=== PATIENT | female | born 1960 | race Caucasian/White ===

== ENCOUNTER 2022-06-21 12:27 | Day surgery (SDC) | payer OTHER ==
[2022-06-21] MEDS ORDERED: NA CHLORIDE 0.9% 1,000 ML ONE (12:58)
[2022-06-21] MEDS ORDERED: LIDOCAINE 1% MPF 5 ML VIAL ONE (14:05)
[2022-06-21] MEDS ORDERED: propofoL 200 MG/20 ML VIAL IV ONE (14:05)
[2022-06-21 15:21] VITALS: TEMP 97.2
[2022-06-21 15:23] VITALS: BP 121/64; O2SAT 100
== END 2022-06-21 15:15 | disposition home or self-care (01) ==
LOC: OR 12:27
PROVIDERS: ATTEND Surgery
PROC: 0DBN8ZX Excision of Sigmoid Colon, Via Natural or Artificial Opening Endoscopic, Diagnostic (ICD-10-PCS; 2022-06-21)
PROC: 0DBP8ZX Excision of Rectum, Via Natural or Artificial Opening Endoscopic, Diagnostic (ICD-10-PCS; principal; 2022-06-21 14:30)
DX: Z12.11 Encounter for screening for malignant neoplasm of colon (principal); K57.30 Diverticulosis of large intestine without perforation or abscess without bleeding; K64.4 Residual hemorrhoidal skin tags; K63.5 Polyp of colon
CPT/HCPCS: 45380; 82947; 88305; J2704; J2001; J7030

== ENCOUNTER 2022-08-02 08:28 | Day surgery (SDC) | payer OTHER ==
[2022-07-31 10:42] LABS: Absolute Lymphocytes (CBC) 1.8 K/uL (0.7-4.9); Hematocrit 43.1 % (36.0-45.0); Lymphocytes % 27.4 % (15.3-44.8); MCV 88.3 fL (80-100); RBC Red Blood Cell Count 4.88 M/uL (3.86-4.86)
--- NOTE | 2022-07-31 17:21 | EKG ---
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
[2022-08-02] MEDS ORDERED: CEFAZOLIN SODIUM 2 GM/VIAL ONE (08:57)
[2022-08-02] MEDS ORDERED: NA CHLORIDE 0.9% 1,000 ML ONE (08:57)
[2022-08-02] MEDS ORDERED: BUPIVACAINE 0.25% PF 10 ML VIAL ONE (09:27)
[2022-08-02] MEDS ORDERED: FENTANYL CITR 100 MCG/2 ML ONE ×2 (09:34→10:32)
[2022-08-02] MEDS ORDERED: propofoL 200 MG/20 ML VIAL IV ONE (09:34)
[2022-08-02] MEDS ORDERED: MIDAZOLAM HCL 2 MG/2 ML INJ ONE (09:34)
[2022-08-02] MEDS ORDERED: LIDOCAINE 2% MPF 5 ML VIAL ONE (09:34)
[2022-08-02] MEDS ORDERED: ONDANSETRON 4 MG/2 ML VIAL ONE (09:38)
[2022-08-02] MEDS ORDERED: GLYCOPYRROLATE 0.2 MG/ML SYR ONE (09:41)
[2022-08-02] MEDS ORDERED: ROCURONIUM 50 MG/5 ML VIAL IV ONE (09:42)
[2022-08-02] MEDS ORDERED: NEOSTIGMINE 1 MG/ML -10 ML VIAL ONE (09:43)
[2022-08-02] MEDS ORDERED: EPHEDRINE SULF 50 MG/ML VIAL ONE (10:58)
[2022-08-02] MEDS ORDERED: LABETALOL 20 MG/4ML SYRINGE IV ONE (11:06)
--- NOTE | 2022-08-02 11:06 | P.OP ---
Preoperative diagnosis: Recurrent Ventral Incisional Hernia Postoperative diagnosis: Recurrent Ventral Incisional Hernia Primary procedure: Laparoscopic repair of Recurrent Ventral Incisional Hernia Anesthesia: GETA + Local Estimated blood loss: <5cc Specimen: none Findings: ~ 4cm ventral abdominal hernias Complications: None Implants: 15.2cm Bard Ventralite mesh, Sorbafix tacks x 60 Transferred to: Recovery Room Condition: Good
[2022-08-02] MEDS: HYDROMORPHONE HCL 1 MG/ML INJ ONE ×2 (11:28→11:33)
[2022-08-02] MEDS: HYDROMORPHONE HCL 2 MG/ML inj ONE ×4 (11:38→11:53)
[2022-08-02] MEDS: DIPHENHYDRAMINE 50 MG/ML VIAL ONE ×2 (12:09→12:19)
[2022-08-02] MEDS ORDERED: KETOROLAC 30 MG/ML INJ ONE (12:09)
[2022-08-02 12:14] VITALS: TEMP 97.3; O2SAT 97
[2022-08-02 14:42] VITALS: BP 107/74
--- NOTE | 2022-08-02 19:47 | OP ---
Date of Procedure: 08/02/2022 Surgeon: Live Fox MD, Preoperative Diagnosis: Recurrent ventral incisional hernia. Postoperative Diagnosis: Recurrent ventral incisional hernia. Procedure Performed: Laparoscopic repair of recurrent ventral incisional hernia. Anesthesia: General endotracheal plus local with 0.25% Marcaine. Estimated Blood Loss: Less than 5 cc. Specimen: None. Findings: 4 cm ventral abdominal hernia. Complications: None. Implants: 11.2 cm Bard Ventralight mesh with Echo Positioning System and SorbaFix absorbable fixatio n tacks x60. Disposition: The patient was transferred to recovery room in good condition. Procedure In Detail: After informed consent was obtained, the patient was brought to the operating r oom and prepped and draped in the usual sterile fashion. After adequate anesthesia was achieved, an area in the left lower quadrant was anesthetized with 0.25% Marcaine, sharply incised, and 5 mm troca r was placed under direct visualization without evidence of any complication. Additional trocar was placed in the left mid abdomen. This was similarly anesthetized, sharply incised, and a 12 mm trocar was placed under direct visualization without evidence of any complication. I then used a LigaSure device to take down the omental attachments from the anterior aspect of this recurrent ventral incisi onal hernia. Previous sutures were noted. Previous repair was noted, which was a primary repair tata arently. This area was dissected from all preperitoneal fat using the LigaSure device and the falcif orm ligament was dissected cranially using the LigaSure device as well with good hemostasis. No sandip tional hemostat was required after the dissection was completed to allow for appropriate landing zone . I then brought the Endo Stitch with V-Loc and 0 V-Loc was used to run and close the hernia defect in the midline in a running fashion with the V-Loc suture. Two sutures were utilized with good appro ximation of tissues. At this point, the hernia defect was measured and found to be approximately 4 c m. I brought in a 15 cm Bard Ventralight mesh with Echo Positioning System through the 12 mm trocar, positioned it centrally, and after making a small stab incision, deployed the balloon deployment sys tem and then placed a single crown of the anterior abdominal wall using SorbaFix absorbable fixation tacks. At this point, the balloon deployment system was removed, found to be intact on the back tabl e, and then a second crown was placed of SorbaFix absorbable fixation tacks. Total of 60 tacks were used to adhere the mesh to the anterior bowel with good approximation of tissues. At this point, the patient was rolled slightly away. The 12 mm trocar site was inspected. The trocar was removed. Th e site was then closed using a Chris-Sarah suture passer with 0 Vicryl in interrupted fashion wit h good approximation of tissues at this point, and the abdomen was then desufflated under direct visu alization without evidence of any complication. Remaining trocars were removed. All skin incisions were copiously irrigated and closed with a 4-0 Monocryl in running fashion and Dermabond placed over top. The patient tolerated the procedure without evidence of any complication and transferred to PAC U in good condition. All counts were correct at the end of the case. GIOVANY/MONIQUE Voice ID: [id number] Report ID: [id number]
== END 2022-08-02 13:55 | disposition home or self-care (01) ==
LOC: OR 08:28
PROVIDERS: ATTEND Surgery
PROC: 0WUF4JZ Supplement Abdominal Wall with Synthetic Substitute, Percutaneous Endoscopic Approach (ICD-10-PCS; principal; 2022-08-02 10:30)
DX: K43.2 Incisional hernia without obstruction or gangrene (principal); I10 Essential (primary) hypertension; E78.2 Mixed hyperlipidemia; R73.03 Prediabetes; E03.9 Hypothyroidism, unspecified; E55.9 Vitamin D deficiency, unspecified; E61.8 Deficiency of other specified nutrient elements; Z79.899 Other long term (current) drug therapy; Z90.49 Acquired absence of other specified parts of digestive tract; Z90.710 Acquired absence of both cervix and uterus
CPT/HCPCS: 93005; 85025; 80048; 36415; 82947 ×2; 49615; J2704; J2710; J1200; J2001; J2250; J1170 ×2; J3010 ×2; J2405; J7030

== ENCOUNTER 2023-03-09 09:53 | Observation (INO) | payer OTHER ==
--- OUTSIDE RECORDS SUMMARY | 2023-03-09 09:58 | XMS REPORT | Continuity of Care Document ---
:1960 Author Organization [facility] t Address [address] [place] [address] Care Team Providers Name Role Phone Services, Pending Sale To [facility] Primary Care Physician [phone] ANT KINNEY Attending Clinician Unavailable QUYNH FIELDS Attending Clinician Unavailable EVON MCLEOD Attending Clinician Unavailable RUTHIE BISHOP Attending Clinician Unavailable LAB90 Attending Clinician Unavailable VINCENZO MCKEON Attending Clinician Unavailable ERICKA HOWARD Attending Clinician Unavailable Rashmi_Denisse Attending Clinician Unavailable Nancy Rivera Attending Clinician [phone] Gautam Sen Attending Clinician Unavailable NIXON SMITH Attending Clinician Unavailable Angelina Child Attending Clinician Unavailable Samina Farmer Attending Clinician [phone] Nava Maria Attending Clinician [phone] Rhona Matamoros Attending Clinician Unavailable Sapna Foreman Attending Clinician [phone] Jade Marquez Attending Clinician [phone] Emi Michel Attending Clinician Unavailable SAMINA NUR Attending Clinician Unavailable Responsible Provider, Not Yet Assigned Attending Clinician U Tayo Cruz Attending Clinician Unavailable Sharmila Zhong Attending Clinician Unavailable Poncho Torres Attending Clinician Unavailable Melina Mistry Attending Clinician [phone] Marleni Emery Attending Clinician Unavailable Dorcas Luna Attending Clinician Unavailable Severinderjit_D Admitting Clinician Unavailable Lj Boateng Unavailable [phone] Nancy Rivera Unavailable [phone] Nava Maria Unavailable [phone] Angelina Child Unavailable Unavailable Jimmy Jade Unavailable [phone] Tayo Mosley Unavailable Unavailable Payers Payer Name Policy Type Policy Number Effective Date Expiration Date S eliza AETNA [employer] 9 [id number] 2022 [place]IL[place] $30 4000 00:00:00 [facility]IC [id number] [place] [id number] [place] [place] [employer] [place] [id number] 2021 2022 [facility] CAP 00:00:00 00:00:00 Community [facility] Problems Condition Condition Condition Status Onset Resolution Last Treating Co mments Source Name Details Category Date Date Treatment Clinician Date DM type 2 DM type 2 Disease Active Tay ariasy with with 06-11 Seybold diabetic diabetic 00:00: - mixed mixed 00 Externa hyperlipid hyperlipid l emia emia Type 2 Type 2 Disease Active Ariadne diabetes diabetes 05-28 Seybol d mellitus mellitus 00:00: - without without 00 Externa complicati complicati l on, on, without without long-term long-term current current use of use of insulin insulin Hypothyroi Hypothyroi Disease Active K elsey dism dism 05-28 Seybold 00:00: - 00 Externa l Subclinica Subclinica Disease Active K elsey l l 05-28 Seybold iodine-def iodine-def 00:00: - iciency iciency 00 Externa hypothyroi hypothyroi l dism dism Mixed Mixed Disease Active Ariadne hyperlipid hyperlipid 05-28 Se ybold emia emia 00:00: - 00 Externa l Prediabete Prediabete Disease Active K jaspreetloretta s s 05-28 Seybold 00:00: - 00 Externa l Female Female Disease Active Ariadne bladder bladder 05-28 Seybold prolapse prolapse 00:00: - 00 Externa l Umbilical Umbilical Disease Active Tay sey hernia hernia -17 Seybold without without 00:00: - obstructio obstructio 00 Ex terna n and n and l without without gangrene gangrene Vitamin D Vitamin D Disease Active Tay sey deficiency deficiency -17 Se ybold 00:00: - 00 Externa l Primary Primary Disease Active Ariadne hypertensi hypertensi -17 Se ybold on on 00:00: - 00 Externa l Hypothyroi Hypothyroi Problem Active V illage dism dism 12-04 Family 00:00: Practic 00 e Presbyopia Condition Active 2020-052021-03-28 Kilo, [facility] - OU 05-28 11:16:58 Lj Communi 00:00: ty 00 Health Astigmatis Condition Active 2020-052021-03-28 Kilo, [facility] m, 05-28 11:16:58 Lj Communi bilateral 00:00: ty 00 Health Hyperopia, Condition Active 2020-052021-03-28 Kilo, [facility] bilateral 05-28 11:16:58 Lj Commu ni 00:00: ty 00 Health Eye and Condition Active 2020-052021-03-28 Kilo, [facility] vision 17 11:16:58 Lj Communi exam, 00:00: ty routine, 00 Health abnormal findings Carpal Condition Active 2020-052021-03-22 Nicole, [place] 1-10 16:08:11 Nancy Andreinai syndrome, 00:00: ty right 00 Health Hypercalce Condition Active 2020-11-05 Candace, [facility] margarette 11-01 21:55:23 Nava Communi 00:00: ty 00 Health Vitamin D Condition Active 2020-11-05 Candace, [facility] deficiency 623 21:55:23 Nava Comm uni 00:00: ty 00 Health PANIC Condition Active 2020-11-01 Angelina Child [facility] DISORDER 6-03 10:07:42 Commun i 00:00: ty 00 Health Multiple Condition Active 2020-11-01 Candace, [facility] joint pain 5-18 10:07:42 Nava Comm uni 00:00: ty 00 Health Panic Condition Active 2020-11-01 Luigi Marquez attack 3-03 10:07:43 Jade Communi 00:00: ty 00 Health Exercise Condition Active 2020-11-01 Luigi Marquez Counseling 3-03 10:07:43 Jade Comm uni 00:00: ty 00 Health Dietary Condition Active 2020-11-01 Luigi Marquez Counseling 3-03 10:07:43 Jade Comm uni 00:00: ty 00 Health Annual Condition Active 2019-052020-11-01 Satya Mosley egacy exam 0-15 10:07:43 Motaz Communi 00:00: ty 00 Health Prediabete Condition Active 2019-052020-11-01 Luigi Mosley s 0-01 10:07:43 Motaz Communi 00:00: ty 00 Health Hyperlipid Condition Active 2019-052020-11-01 Luigi Mosley emia 0-01 10:07:43 Motaz Communi 00:00: ty 00 Health Hypertensi Condition Active 2019-052020-11-01 Luigi Mosley on 0-01 10:07:43 Motaz Communi 00:00: ty 00 Health Allergic Condition Active 2019-052020-11-01 Maria Victoria Mosleyacy rhinitis 0-01 10:07:43 Motaz Commun i 00:00: ty 00 Health Ear Condition Active 2019-052020-11-01 Satya Mosley egacy fullness 0-01 10:07:43 Motaz Commun i 00:00: ty 00 Health Allergies, Adverse Reactions, Alerts This patient has no known allergies or adverse reactions. Social History Social Habit Start Date Stop Date Quantity Comments Source Gender identity Ariadne toscano - External Sexual orientation [facility] History of tobacco Current smoker Me thodist use Hospital History SDOH Alcohol Meth odist Std Drinks Hospital History SDOH Alcohol Meth odist Binge Hospital drug use 2021-03-21 2021-03-21 Previously [facility] 08:17:31 08:17:31 [facility] alcohol use 2021-03-21 2021-03-21 Currently [facility] 08:17:31 08:17:31 [facility] if the patient is 2021-03-21 2021-03-21 No [facility] using/has used a 08:17:31 08:17:31 Communit y vaping item, Health Current, Former, Never Used, Not asked is there any chance 2021-03-21 2021-03-21 No Legac y that you could be 08:17:31 08:17:31 Communi ty ? Health sexual orientation 2021-03-21 2021-03-21 Heterosexual [facility] 08:17:31 08:17:31 [facility] assessment of health 2021-03-21 2021-03-21 Adequate L[facility] cy literacy (NCQA [facility] 08:17:31 08:17:31 Marco singh [facility] Standards, Health 3C10) PHQ2 Questionairre 2021-03-21 2021-03-21 [facility] Score 08:17:31 08:17:31 [facility] passive cigarette 2021-03-21 2021-03-21 No [facility] smoke exposure 08:17:31 08:17:31 [facility] number of children 2021-03-21 2021-03-21 [facility] 08:17:31 08:17:31 [facility] social history 2021-03-21 2021-03-21 reviewed today Legacy reviewed E&M 08:17:31 08:17:31 [facility] social history E&M 2021-03-21 2021-03-21 Single. . [facility] 08:17:31 08:17:[address] [facility] Gabrielleu francisco w/ remarried spouse Healt h of 6 yrs. 3 children ages 39, 37, and 34. Watches grand children as her Daughter works (ages 3 and 5)., Has other grandchildren ages 13, 12 (oldest ones are boys).Not homeless. Born in [facility]. State: [place]. Lives in [place] with youngest daughter and two granddaughters. Not employed. Unemployed. Highest education level: some college. 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 Worked at [employer], and [employer] for some years i nthe past. Sex at : Female. Sexual orientation: Heterosexual. Gender identity: Female. Gender of partner(s): Male. Age of first sexual intercourse: 20. Sexually Active: No. Pet dog. In 2009 she was arrested for theft. "Was an accomplice on a theft". No current legal issues. Believes in God. home/family 2020-11-01 2020-11-01 Lives in [place] Legacy situation, 12:19:17 12:19:17 with youngest Community assessment daughter and two Health granddaughters. family support 2020-11-01 2020-11-01 . Leg acy 12:19:17 12:19:17 2015 in [place] w/ Community remarried spouse of Sierra gómez 6 yrs. 3 children ages 39, 37, and 34. Watches grand children as her Daughter works (ages 3 and 5)., Has other grandchildren ages 13, 12 (oldest ones are boys). time of call 2020-10-24 2020-10-24 10/24/2020 3:42 PM [facility] 15:41:56 15:41:56 [facility] albumin, serum 2020-10-02 2020-10-02 4.8 g/dL [facility] 11:33:00 11:33:00 [facility] Alcohol intake 2020-02-29 2020-02-29 [facility] 00:00:00 00:00:00 non-drinker Hospital (finding) History of Social 2020-02-29 2020-02-[address] function 00:00:00 00:00:00 Hospital History SDOH Alcohol 2020-02-29 2020-02-29 1 Meth odist Frequency 00:00:00 00:00:00 Hospital alcohol use, 2020-02-10 2020-02-10 holidays/special [facility] frequency 10:48:52 10:48:52 occasions only [facility] Occupation #1 2020-02-10 2020-02-10 Unemployed [facility] 10:48:52 10:48:52 [facility] patient considered 2020-02-10 2020-02-10 No Legacy to be homeless 10:48:52 10:48:52 [facility] Sex Assigned At [birth year] [facility] 00:00:00 00:00:00 Hospital Smoking Status Start Date Stop Date Source Former Smoker [facility] P karena Never smoked tobacco Ariadne Clements old - External Medications Ordered Filled Start Stop Current Ordering Indication Dosage Frequency Signature Comments Components Source Medication Medication Date Date Medication? Clinician (SIG) Name Name methylPREDN Yes [id number] 1{zainab} Take 1 zainab Ariadne ISolone 4 8-21 by mouth Seybol d MG oral 00:00: See Admin - Tablet 00 Instructio Externa Therapy ns Use as l Pack directed. Dulaglutide Yes [id number] 3mg Inject 3 Ariadne (Trulicity) 7-24 3 mg into Seybo ld 3 MG/0.5ML 00:00: the skin - subcutaneou 00 once a Machine Setter And Repairer a s Solution week l Pen-injecto r Amlodipine Yes [id number] 5mg Take 1 K elsey Besylate 7-24 tablet (5 Seybol d (NORVASC) 5 00:00: mg total) - MG oral 00 by mouth Externa Tablet daily l Ibuprofen 0 Yes [id number] 800mg Q.25D Take 1 Ariadne (MOTRIN) 7-24 tablet Seybold 800 MG oral 00:00: (800 mg - Tablet 00 total) by Externa mouth l every 6 hours as needed for pain Dulaglutide Yes [id number] 3mg Inject 3 Ariadne (Trulicity) 7-24 3 mg into Seybo ld 3 MG/0.5ML 00:00: the skin - subcutaneou 00 once a Machine Setter And Repairer a s Solution week l Pen-injecto r Amlodipine Yes [id number] 5mg Take 1 K elsey Besylate 7-24 tablet (5 Seybol d (NORVASC) 5 00:00: mg total) - MG oral 00 by mouth Externa Tablet daily l Ibuprofen 2022-0 Yes [id number] 800mg Q.25D Take 1 Ariadne (MOTRIN) 7-24 tablet Seybold 800 MG oral 00:00: (800 mg - Tablet 00 total) by Externa mouth l every 6 hours as needed for pain hydroCHLORO 2022-0 2022- No [id number] 12.5mg Take 1 Ariadne thiazide 7-24 07-24 capsule Seybold 12.5 MG 00:00: 00:00 (12.5 mg - oral 00 :00 total) by Externa Capsule mouth l daily Trulicity 3 2022-0 2022- No [id number] 3mg Inject 3 Ariadne MG/0.5ML 12-02 3 mg into Seybold subcutaneou 00:00: 00:00 the skin - s Solution 00 :00 once a Externa Pen-injecto week l r Amlodipine 2022- No [id number] 5mg Take 1 Ariadne Besylate 12-02 tablet (5 Seybo ld (NORVASC) 5 00:00: 00:00 mg total) - MG oral 00 :00 by mouth Externa Tablet daily l Salicylic Yes [id number] Apply 1 Ariadne Acid 6 % 10-07 applicatio Seybo ld apply 00:00: n. - externally 00 topically Exte rna Gel daily l Salicylic Yes [id number] Apply 1 Ariadne Acid 6 % 10-07 applicatio Seybo ld apply 00:00: n. - externally 00 topically Exte rna Gel daily l Imiquimod 5 Yes [id number] Apply 1 Ariadne % apply 10-02 applicatio Seybol d externally 00:00: n. - Cream 00 topically Externa three l times a week Imiquimod 5 Yes [id number] Apply 1 Ariadne % apply 10-02 applicatio Seybol d externally 00:00: n. - Cream 00 topically Externa three l times a week Imiquimod 5 0 Yes [id number] Apply 1 Ariadne % apply 10-02 applicatio Seybol d externally 00:00: n. - Cream 00 topically Externa three l times a week Levocetiriz 2022- No 5mg 1 tablet K elsey ine 10-01 (5 mg Seybold Dihydrochlo 08:41: 00:00 total) - ride 5 MG 10 :00 daily Externa oral Tablet l Losartan 2022- No [id number] 100mg 1 tablet Ariadne Potassium 10-01- (100 mg Seybol d 100 MG oral 08:36: 00:00 total) - Tablet 58 :00 daily Externa l Cyclobenzap Yes cyclobenza Ariadne rine HCl 10 10-01 ismael 10 Seyb old MG oral 08:25: mg tablet - Tablet 06 Take 1/2 - Externa 1 tablet l po bid PRN and q bedtime Levothyroxi Yes [id number] 50ug 1 tablet Ariadne ne Sodium 5-23 (50 mcg Seybold 50 MCG oral 08:25: total) - Tablet 06 daily Externa l Cyclobenzap Yes cyclobenza Ariadne rine HCl 10 5-23 ismael 10 Seyb old MG oral 08:25: mg tablet - Tablet 06 Take 1/2 - Externa 1 tablet l po bid PRN and q bedtime Levothyroxi Yes [id number] 50ug 1 tablet Ariadne ne Sodium 5-23 (50 mcg Seybold 50 MCG oral 08:25: total) - Tablet 06 daily Externa l Cyclobenzap Yes cyclobenza Ariadne rine HCl 10 5-23 ismael 10 Seyb old MG oral 08:25: mg tablet - Tablet 06 Take 1/2 - Externa 1 tablet l po bid PRN and q bedtime Levothyroxi Yes [id number] 50ug 1 tablet Ariadne ne Sodium 5-23 (50 mcg Seybold 50 MCG oral 08:25: total) - Tablet 06 daily Externa l Trulicity Yes [id number] 1.5mg Inject 1.5 Ariadne 1.5 5-23 3 mg into Seybold MG/0.5ML 00:00: the skin - subcutaneou 00 once a Machine Setter And Repairer a s Solution week l Pen-injecto r Losartan Yes [id number] 100mg Take 1 Ke lsey Potassium 5-23 tablet Seybold (COZAAR) 00:00: (100 mg - 100 MG oral 00 total) by Ext lauri Tablet mouth l daily Duloxetine Yes [id number] 30mg Take 1 Ariadne HCl 30 MG 5-23 capsule Seybold [address] Cap DR 00:00: (30 mg - Particles 00 total) by Exter na mouth l daily FLUTICASONE Yes [id number] 50ug Use 1 Ariadne PROPIONATE, 5-23 spray (50 Sey bold NASAL, 50 00:00: mcg total) - MCG/ACT 00 in each Externa nasal nostril l Suspension daily Salicylic Yes [id number] Apply 1 Ariadne Acid 17 % 5-23 applicatio Seyb old apply 00:00: n. - externally 00 topically Exte rna Gel daily l Losartan Yes [id number] 100mg Take 1 Ke lsey Potassium 5-23 tablet Seybold (COZAAR) 00:00: (100 mg - 100 MG oral 00 total) by Ext lauri Tablet mouth l daily FLUTICASONE Yes [id number] 50ug Use 1 Ariadne PROPIONATE, 5-23 spray (50 Sey bold NASAL, 50 00:00: mcg total) - MCG/ACT 00 in each Externa nasal nostril l Suspension daily Losartan Yes [id number] 100mg Take 1 Ke lsey Potassium 5-23 tablet Seybold (COZAAR) 00:00: (100 mg - 100 MG oral 00 total) by Ext lauri Tablet mouth l daily FLUTICASONE Yes [id number] 50ug Use 1 Ariadne PROPIONATE, 5-23 spray (50 Sey bold NASAL, 50 00:00: mcg total) - MCG/ACT 00 in each Externa nasal nostril l Suspension daily Trulicity 2022- No [id number] 1.5mg Inject 1.5 Ariadne 1.5 5-23 07-24 3 mg into Seybold MG/0.5ML 00:00: 00:00 the skin - subcutaneou 00 :00 once a Machine Setter And Repairer a s Solution week l Pen-injecto r Duloxetine 2022- No [id number] 30mg Take 1 Ariadne HCl 30 MG 5-23 07-24 capsule Seybol d oral Cap DR 00:00: 00:00 (30 mg - Particles 00 :00 total) by Exter na mouth l daily Vitamin D, Yes [id number] TAKE ONE Ariadne Ergocalcife 5-18 CAPSULE BY Se everton hurtado, 1.25 00:00: MOUTH ONCE - MG ( WEEKLY Externa UT) oral l Capsule Vitamin D, 2022- No [id number] TAKE ONE Ariadne Ergocalcife 5-18 07-24 CAPSULE BY Kasandra hurtado, 1.25 00:00: 00:00 MOUTH ONCE - MG ( 00 :00 WEEKLY Externa UT) oral l Capsule Duloxetine 2022- No [id number] TAKE ONE Ariadne HCl 30 MG 09-07-23 CAPSULE BY Sathish guerra oral Cap DR 00:00: 00:00 MOUTH - Particles 00 :00 DAILY . NO Exte rna DRIVING , l NO ALCOHOL AND NO OPERATING MACHINERY Cyclobenzap Yes cyclobenza Ariadne rine HCl 10 -25 ismael 10 Seyb old MG oral 08:10: mg tablet - Tablet 00 Take 1/2 - Externa 1 tablet l po bid PRN and q bedtime Levocetiriz Yes 5mg 1 tablet Ke lsey ine 4-25 (5 mg Seybold Dihydrochlo 08:10: total) - ride 5 MG 00 daily Externa oral Tablet l Levothyroxi Yes [id number] 50ug 1 tablet Ariadne ne Sodium 4-25 (50 mcg Seybold 50 MCG oral 08:10: total) - Tablet 00 daily Externa l Losartan Yes [id number] 100mg 1 tablet Ariadne Potassium 4-25 (100 mg Seybold 100 MG oral 08:10: total) - Tablet 00 daily Externa l Trulicity Yes [id number] .75mg Inject Ariadne 0.75 -25 3 0.75 mg Seybold MG/0.5ML 00:00: into the - subcutaneou 00 skin once Ext lauri s Solution a week l Pen-injecto r Empaglifloz Yes [id number] 10mg Take 1 Ariadne in - 3 tablet (10 Seybold (Jardiance) 00:00: mg total) - 10 MG oral 00 by mouth Exter na Tablet daily l Trulicity 2022- No [id number] .75mg Inject Ariadne 0.75 -25 05-23 3 0.75 mg Seybold MG/0.5ML 00:00: 00:00 into the - subcutaneou 00 :00 skin once Ext lauri s Solution a week l Pen-injecto r Empaglifloz 2022- No [id number] 10mg Take 1 Ariadne in - 05-23 3 tablet (10 Seybold (Jardiance) 00:00: 00:00 mg total) - 10 MG oral 00 :00 by mouth Exter na Tablet daily l Atorvastati 2022-0 Yes [id number] TAKE ONE Ariadne n Calcium 4-21 3 TABLET BY Seybo ld 20 MG oral 00:00: MOUTH - Tablet 00 DAILY Externa l Atorvastati 2022-0 Yes [id number] TAKE ONE Ariadne n Calcium 4-21 3 TABLET BY Seybo ld 20 MG oral 00:00: MOUTH - Tablet 00 DAILY Externa l Atorvastati 2022-0 Yes [id number] TAKE ONE Ariadne n Calcium 4-21 3 TABLET BY Seybo ld 20 MG oral 00:00: MOUTH - Tablet 00 DAILY Externa l Atorvastati 2022-0 Yes [id number] TAKE ONE Ariadne n Calcium 4-21 3 TABLET BY Seybo ld 20 MG oral 00:00: MOUTH - Tablet 00 DAILY Externa l Duloxetine 0 Yes [id number] TAKE ONE Ariadne HCl 30 MG 4-01 CAPSULE BY Seyb old oral Cap DR 00:00: MOUTH - Particles 00 DAILY NO Machine Setter And Repairer a DRIVING NO l ALCOHOL NO OPERATING MACHINERY HYDROcodone 0 2022- No Kelse y -Acetaminop 3-24 04-25 Seybold hen (NORCO) 00:00: 00:00 - 5-325 MG 00 :00 Externa oral Tablet l Duloxetine 0 Yes [id number] 30mg Take 1 Ariadne HCl 3-06 capsule Seybold (Cymbalta) 00:00: (30 mg - 30 MG oral 00 total) by Exte rna Cap DR mouth l Particles daily No driving. No alcohol. No operating machinery. Omeprazole 0 Yes 40mg Take 1 Kelse y 40 MG oral 1-30 capsule Seybol d Delayed 00:00: (40 mg - Release 00 total) by Externa Capsule mouth l daily Omeprazole 2022-0 Yes 40mg Take 1 Kelse y 40 MG oral 1-30 capsule Seybol d Delayed 00:00: (40 mg - Release 00 total) by Externa Capsule mouth l daily Omeprazole 2022-0 Yes 40mg Take 1 Kelse y 40 MG oral 1-30 capsule Seybol d Delayed 00:00: (40 mg - Release total) by Externa Capsule mouth l daily Omeprazole 2022-0 Yes 40mg Take 1 Kelse y 40 MG oral 1-30 capsule Seybol d Delayed 00:00: (40 mg - Release total) by Externa Capsule mouth l daily Omeprazole 2022-0 Yes 40mg Take 1 Kelse y 40 MG oral 1-30 capsule Seybol d Delayed 00:00: (40 mg - Release total) by Externa Capsule mouth l daily glyBURIDE 0 2023- No [id number] 1{each} 1 each Ariadne 2.5 MG oral 1-25 01-25 daily Seybol d Tablet 08:21: 00:00 - 29 :00 Externa l Cyclobenzap 0 Yes cyclobenza Ariadne rine HCl 10 1-25 ismael 10 Seyb old MG oral 08:05: mg tablet - Tablet 24 Take 1/2 - Externa 1 tablet l po bid PRN and q bedtime Levocetiriz 2022-0 Yes 1{each} 1 each K elsey ine 1-25 daily Seybold Dihydrochlo 08:05: - ride 5 MG 24 Externa oral Tablet l Levothyroxi 0 Yes [id number] 1{each} 1 each Ariadne ne Sodium 1-25 daily Seybold 50 MCG oral 08:05: - Tablet 24 Externa l Losartan 2022-0 Yes [id number] 1{each} 1 each Ariadne Potassium 1-25 daily Seybold 100 MG oral 08:05: - Tablet 24 Externa l Omeprazole 2022-0 Yes 1{capsu 1 capsule Ariadne 40 MG oral 1-25 le} daily Seybold Delayed 08:05: - Release 24 Externa Capsule l Cyclobenzap Yes cyclobenza Ariadne rine HCl 10 1-25 ismael 10 Seyb old MG oral 08:05: mg tablet - Tablet 24 Take 1/2 - Externa 1 tablet l po bid PRN and q bedtime Levocetiriz 2022-0 Yes 1{each} 1 each K elsey ine 1-25 daily Seybold Dihydrochlo 08:05: - ride 5 MG 24 Externa oral Tablet l Levothyroxi 2022-0 Yes [id number] 1{each} 1 each Ariadne ne Sodium 1-25 daily Seybold 50 MCG oral 08:05: - Tablet 24 Externa l Losartan 2022-0 Yes [id number] 1{each} 1 each Ariadne Potassium 1-25 daily Seybold 100 MG oral 08:05: - Tablet 24 Externa l Vitamin D, 2022-0 Yes [id number] 17977P Take 1 Ariadne Ergocalcife 1-25 capsule Seybo ld rol, 1.25 00:00: (50,000 - MG (04176 00 units Externa UT) oral total) by l Capsule mouth once a week Vitamin D, 0 Yes [id number] [id number] Take 1 Ariadne Ergocalcife 1-25 capsule Seybo ld rol, 1.25 00:00: (50,000 - MG (15124 00 units Externa UT) oral total) by l Capsule mouth once a week Atorvastati 0 Yes [id number] 20mg Take 1 Ariadne n Calcium 1-25 tablet (20 Seyb old 20 MG oral 00:00: mg total) - Tablet 00 by mouth Externa daily l Empaglifloz 2022-0 Yes [id number] 10mg Take 10 mg Ariadne in 1-25 by mouth Seybold (Jardiance) 00:00: daily - 10 MG oral 00 Externa Tablet l methylPREDN 2022-0 Yes [id number] 1{zainab} Take 1 zainab Ariadne ISolone 4 1-25 by mouth Seybol d MG oral 00:00: See Admin - Tablet 00 Instructio Externa Therapy ns Use as l Pack directed Vitamin D, Yes [id number] 83725L Take 1 Ariadne Ergocalcife 1-25 capsule Seybo ld rol, 1.25 00:00: (50,000 - MG (39616 00 units Externa UT) oral total) by l Capsule mouth once a week Atorvastati 2022-0 Yes [id number] 20mg Take 1 Ariadne n Calcium 1-25 3 tablet (20 Seyb old 20 MG oral 00:00: mg total) - Tablet 00 by mouth Externa daily l Empaglifloz 2022-0 Yes [id number] 10mg Take 10 mg Ariadne in 1-25 3 by mouth Seybold (Jardiance) 00:00: daily - 10 MG oral 00 Externa Tablet l methylPREDN 2022-0 Yes [id number] 1{zainab} Take 1 zainab Ariadne ISolone 4 1-25 by mouth Seybol d MG oral 00:00: See Admin - Tablet 00 Instructio Externa Therapy ns Use as l Pack directed Empaglifloz 2022- No [id number] 10mg Take 10 mg Ariadne in 06-05 3 by mouth Seybold (Jardiance) 00:00: 00:00 daily - 10 MG oral 00 :00 Externa Tablet l methylPREDN 2022- No [id number] 1{zainab} Take 1 zainab Ariadne ISolone 4 06-05 by mouth Seybo ld MG oral 00:00: 00:00 See Admin - Tablet 00 :00 Instructio Externa Therapy ns Use as l Pack directed Atorvastati 2022- No [id number] 20mg Take 1 Ariadne n Calcium 06-05 3 tablet (20 Sey bold 20 MG oral 00:00: 00:00 mg total) - Tablet 00 :00 by mouth Externa daily l Cyclobenzap Yes cyclobenza Ariadne rine HCl 10 -17 ismael 10 Seyb old MG oral 08:14: mg tablet - Tablet 19 Take 05/13 - Externa 1 tablet l po bid PRN and q bedtime glyBURIDE Yes [id number] 1{each} 1 each Ariadne 2.5 MG oral 1-17 daily Seybold Tablet 08:14: - 19 Externa l Levocetiriz Yes 1{each} 1 each K elsey ine 1-17 daily Seybold Dihydrochlo 08:14: - ride 5 MG 19 Externa oral Tablet l Levothyroxi Yes [id number] 1{each} 1 each Ariadne ne Sodium 1-17 daily Seybold 50 MCG oral 08:14: - Tablet 19 Externa l Losartan Yes [id number] 1{each} 1 each Ariadne Potassium 1-17 daily Seybold 100 MG oral 08:14: - Tablet 19 Externa l Omeprazole Yes 1{capsu 1 capsule Ariadne 40 MG oral 1-17 le} daily Seybold Delayed 08:14: - Release 19 Externa Capsule l (GABAPENTIN 2020-05 Yes Nancy Take 1 L egacy ) 300 MG 1-10 Nicole capsule by Com mey CAPS 00:00: mouth ty 00 every Health night (IBUPROFEN) 2020-05 Yes Nancy Take 1 L egacy 800 MG TABS 1-10 Nicole tablet by C ommuni 00:00: mouth ty 00 every Health eight hours as needed (ROSUVASTAT 2020-05 Yes Nava TAKE ONE Le gacy IN CALCIUM) 0-05 Candace TABLET BY Communi 10 MG TABS 00:00: MOUTH ty 00 DAILY Health (LOSARTAN 2020-05 Yes Nava TAKE ONE Lega cy POTASSIUM) 0-05 Candace TABLET BY C ommuni 50 MG TABS 00:00: MOUTH ty 00 DAILY Health (METFORMIN 2020-05 Yes Nava TAKE ONE Leg acy HCL) 500 MG 0-05 Candace TABLET BY Communi TABS 00:00: MOUTH ty 00 DAILY Health VITAMIN D 2020- No Nava 1 [id number] 1 capsule [facility] (ERGOCALCIF 5-31 08-23 Candace by mouth Communi NELDA) 00:00: 00:00 once per ty (ERGOCALCIF 00 :00 week for Heal th NELDA) 1.25 10 weeks MG (93436 UT) CAPS METOPROLOL Yes Nava 1 1xD 1 tablet Leg acy SUCCINATE 5-18 Candace by mouth Com mey ER 00:00: once a day ty (METOPROLOL Health SUCCINATE) 25 MG [id number] (ALPRAZOLAM Yes Samina Yepez Take 0.5-1 [facility] ) 0.25 MG 5-18 Darian tablet by C ommuni TABS 00:00: mouth once ty 00 a day as Health needed losartan 2019-05 Yes 50mg QD Take 50 mg Met hodi (COZAAR) 50 0-[address] MG tablet 18:46: daily. Hospit a 27 l metFORMIN 2019-05 Yes 500mg QD Take 500 Met hodi (GLUCOPHAGE 0-[address] ) 500 mg 18:46: mouth Hospita tablet 27 daily with l breakfast. rosuvastati 2019-05 Yes 10mg QD Take 10 mg Methodi n (CRESTOR) 0-[address] 10 mg 18:46: daily. Hospita tablet 27 l losartan 2019-05 Yes 50mg QD Take 50 mg Met hodi (COZAAR) 50 0-[address] MG tablet 18:46: daily. Hospit a 27 l metFORMIN 2019-05 Yes 500mg QD Take 500 Met hodi (GLUCOPHAGE 0-[address] ) 500 mg 18:46: mouth Hospita tablet 27 daily with l breakfast. rosuvastati 2019-05 Yes 10mg QD Take 10 mg Methodi n (CRESTOR) 0-[address] 10 mg 18:46: daily. Hospita tablet 27 l losartan 2019-05 Yes 50mg QD Take 50 mg Met hodi (COZAAR) 50 0-[address] MG tablet 18:46: daily. Hospit a 27 l metFORMIN 2019-05 Yes 500mg QD Take 500 Met hodi (GLUCOPHAGE 0-[address] ) 500 mg 18:46: mouth Hospita tablet 27 daily with l breakfast. rosuvastati 2019-05 Yes 10mg QD Take 10 mg Methodi n (CRESTOR) 0-[address] 10 mg 18:46: daily. Hospita tablet 27 l losartan 2019-05 Yes 50mg QD Take 50 mg Met hodi (COZAAR) 50 0-[address] MG tablet 18:46: daily. Hospit a 27 l metFORMIN 2019-05 Yes 500mg QD Take 500 Met hodi (GLUCOPHAGE 0-[address] ) 500 mg 18:46: mouth Hospita tablet 27 daily with l breakfast. rosuvastati 2019-05 Yes 10mg QD Take 10 mg Methodi n (CRESTOR) 0-[address] 10 mg 18:46: daily. Hospita tablet 27 l losartan 2019-05 Yes 50mg QD Take 50 mg Met hodi (COZAAR) 50 0-[address] MG tablet 18:46: daily. Hospit a 27 l metFORMIN 2019-05 Yes 500mg QD Take 500 Met hodi (GLUCOPHAGE 0-[address] ) 500 mg 18:46: mouth Hospita tablet 27 daily with l breakfast. rosuvastati 2019-05 Yes 10mg QD Take 10 mg Methodi n (CRESTOR) 0-[address] 10 mg 18:46: daily. Hospita tablet 27 l FLONASE 2019-05 Yes Melina oHlcomb 2 spray [facility] y ALLERGY 0-01 Ehdaie into both Commu ni RELIEF 00:00: nostrils ty (FLUTICASON 00 once a day He alth E PROPIONATE) 50 MCG/ACT SUSP (LORATADINE 2019-05 Yes Nancy 1{Table 1xD Take 1 [facility] ) 10 MG 0-01 Nicole t} tablet by Commu ni TABS 00:00: mouth once ty 00 a day as Health needed (METFORMIN 2019-05- No Melina M 1{Table 1xD 1 by mouth [facility] HCL) 500 MG 0-02-13 Ehdaie t} once a day Communi TABS 00:00: 00:00 ty 00 :00 Health (LOSARTAN 2019-05- No Melina M 1{Table 1xD 1 By Mouth [facility] POTASSIUM) 0-02-13 Ehdaie t} once a day Communi 50 MG TABS 00:00: 00:00 ty 00 :00 Health (ROSUVASTAT 2019-05- No Melina M 1{Table 1xD 1 tablet [facility] IN CALCIUM) 0-02-13 Ehdaie t} By Mouth C ommuni 10 MG TABS 00:00: 00:00 Every Day t y 00 :00 Health Astepro Astepro No 1spray( BID Astepro Nichole bri Allergy Allergy s) Allergy Family 205.5 mcg 205.5 mcg 205.5 mcg Practic (0.15 %) (0.15 %) (0.15 %) e nasal spray nasal spray nasal Aurora 1 Aurora 1 spray spray twice spray twice Aurora 1 a day by a day by spray intranasal intranasal twice a route. route. day by intranasal route. cyclobenzap cyclobenzap No cyclobenza [facility] rine 10 mg rine 10 mg ismael 10 Family tablet Take tablet Take mg tablet Practic 1/2 - 1 1/2 - 1 Take 1/2 - e tablet po tablet po 1 tablet bid PRN and bid PRN and po bid PRN q bedtime q bedtime and q bedtime glyburide glyburide No 1 Q1D glyburide [facility] 2.5 mg 2.5 mg 2.5 mg Family tablet Take tablet Take tablet Practic 1 tablet 1 tablet Take 1 e every day every day tablet by oral by oral every day route for route for by oral 90 days. 90 days. route for 90 days. levothyroxi levothyroxi No 1 Q1D levothyrox [facility] ne 50 mcg ne 50 mcg ine 50 mcg Family tablet Take tablet Take tablet Practic 1 tablet 1 tablet Take 1 e every day every day tablet by oral by oral every day route for route for by oral 90 days. 90 days. route for 90 days. losartan losartan No 1 Q1D losartan Nichole bri 100 mg 100 mg 100 mg Family tablet Take tablet Take tablet Practic 1 tablet 1 tablet Take 1 e every day every day tablet by oral by oral every day route for route for by oral 90 days. 90 days. route for 90 days. omeprazole omeprazole No 1capsul Q1D omeprazole [facility] 40 mg 40 mg e(s) 40 mg Family capsule,del capsule,del capsule,de Practic ayed ayed layed e release release release Take 1 Take 1 Take 1 capsule capsule capsule every day every day every day by oral by oral by oral route for route for route for 60 days. 60 days. 60 days. Xyzal 5 mg Xyzal 5 mg No 1 Q1D Xyzal 5 mg [facility] tablet Take tablet Take tablet Family 1 tablet 1 tablet Take 1 Pract ic every day every day tablet e by oral by oral every day route for route for by oral 90 days. 90 days. route for 90 days. Vital Signs Vital Name Observation Time Observation Value Comments Source Systolic blood 2022-12-30 13:02:00 135 mm[Hg] Ariadne Salmeron - pressure External Diastolic blood 2022-12-30 13:02:00 87 mm[Hg] Elis Salmeron - pressure External Heart rate 2022-12-30 13:02:00 97 /min Ariadne tamez - External Body temperature 2022-12-30 13:02:00 36.67 Chelsea Lissett Salmeron - External Respiratory rate 2022-12-30 13:02:00 15 /min Lissett Salmeron - External Body height 2022-12-30 13:02:00 154.9 cm Ariadne tamez - External Body weight 2022-12-30 13:02:00 74.39 kg Ariadne tamez - External BMI 2022-12-30 13:02:00 30.99 kg/m2 Ariadne tamez - External Oxygen saturation in 2022-12-30 13:02:00 99 /min Ariadne Salmeron - Arterial blood by External Pulse oximetry Systolic blood 2022-12-02 13:05:00 142 mm[Hg] Ariadne Salmeron - pressure External Diastolic blood 2022-12-02 13:05:00 79 mm[Hg] Elis y Seybold - pressure External Heart rate 2022-12-02 13:05:00 78 /min Ariadne S eybold - External Body temperature 2022-12-02 13:05:00 36.61 Chelsea Lissett ey Seybold - External Respiratory rate 2022-12-02 13:05:00 14 /min Lissett ey Seybold - External Body height 2022-12-02 13:05:00 154.9 cm Ariadne S eybold - External Body weight 2022-12-02 13:05:00 77.111 kg Ariadne S eybold - External BMI 2022-12-02 13:05:00 32.12 kg/m2 Ariadne S eybold - External Oxygen saturation in 2022-12-02 13:05:00 99 /min Ariadne Seybold - Arterial blood by External Pulse oximetry Systolic blood 2022-10-01 13:21:00 152 mm[Hg] Ariadne Seybold - pressure External Diastolic blood 2022-10-01 13:21:00 90 mm[Hg] Elis y Seybold - pressure External Heart rate 2022-10-01 13:21:00 71 /min Ariadne S eybold - External Body temperature 2022-10-01 13:21:00 35.94 Chelsea Lissett ey Seybold - External Respiratory rate 2022-10-01 13:21:00 16 /min Lissett ey Seybold - External Body height 2022-10-01 13:21:00 154.9 cm Ariadne Slaughter eybold - External Body weight 2022-10-01 13:21:00 77.111 kg Ariadne S eybold - External BMI 2022-10-01 13:21:00 32.12 kg/m2 Ariadne S eybold - External Oxygen saturation in 2022-10-01 13:21:00 97 /min Ariadne Seybold - Arterial blood by External Pulse oximetry Systolic blood 2022-09-03 13:03:00 132 mm[Hg] Ariadne Seybold - pressure External Diastolic blood 2022-09-03 13:03:00 78 mm[Hg] Tayse y Seybold - pressure External Heart rate 2022-09-03 13:03:00 69 /min Ariadne S eybold - External Body temperature 2022-09-03 13:03:00 36.22 Chelsea Lissett schroeder Seybold - External Respiratory rate 2022-09-03 13:03:00 16 /min Lissett schroeder Seybold - External Body height 2022-09-03 13:03:00 154.9 cm Ariadne Slaughter eybold - External Body weight 2022-09-03 13:03:00 79.379 kg Ariadne Slaughter eybold - External BMI 2022-09-03 13:03:00 33.07 kg/m2 Ariadne Slaughter eybold - External Oxygen saturation in 2022-09-03 13:03:00 97 /min Ariadne Salmeron - Arterial blood by External Pulse oximetry Body height 2022-07-15 14:32:00 154.9 cm Ariadne Slaughter eybold - External Body weight 2022-07-15 14:32:00 77.111 kg Ariadne Slaughter eybold - External BMI 2022-07-15 14:32:00 32.12 kg/m2 Ariadne Slaughter eybold - External Systolic blood 2022-06-05 14:27:00 130 mm[Hg] Ariadne Seybold - pressure External Diastolic blood 2022-06-05 14:27:00 80 mm[Hg] Tayse y Seybold - pressure External Heart rate 2022-06-05 14:01:00 75 /min Ariadne Slaughter eybold - External Body temperature 2022-06-05 14:01:00 35.17 Chelsea Lissett schroeder Seybold - External Respiratory rate 2022-06-05 14:01:00 15 /min Lissett schroeder Seybold - External Body height 2022-06-05 14:01:00 154.9 cm Ariadne Slaughter eybold - External Body weight 2022-06-05 14:01:00 79.833 kg Ariadne Slaughter eybold - External BMI 2022-06-05 14:01:00 33.25 kg/m2 Ariadne Slaughter eybold - External Systolic blood 2022-05-28 14:07:00 150 mm[Hg] Ariadne Seybold - pressure External Diastolic blood 2022-05-28 14:07:00 94 mm[Hg] Kelse y Seybold - pressure External Heart rate 2022-05-28 14:07:00 72 /min Ariadne tamez - External Body temperature 2022-05-28 14:07:00 36.56 Chelsea Lissett Salmeron - External Respiratory rate 2022-05-28 14:07:00 14 /min Lissett Salmeron - External Body height 2022-05-28 14:07:00 154.9 cm Ariadne tamez - External Body weight 2022-05-28 14:07:00 78.019 kg Ariadne tamez - External BMI 2022-05-28 14:07:00 32.50 kg/m2 Ariadne tamez - External BP Diastolic 2022-01-15 00:00:00 91 mm[Hg] [facility] Height 2022-01-15 00:00:00 61.5 [in_i] [facility] BMI (Body Mass 2022-01-15 00:00:00 32.6 kg/m2 [facility] BP Systolic 2022-01-15 00:00:00 154 mm[Hg] [facility] Body Weight 2022-01-15 00:00:00 175.6 [lb_av] [facility] BP Diastolic 2021-12-04 00:00:00 91 mm[Hg] [facility] Height 2021-12-04 00:00:00 61.5 [in_i] [facility] BMI (Body Mass 2021-12-04 00:00:00 32.7 kg/m2 [facility] BP Systolic 2021-12-04 00:00:00 159 mm[Hg] [facility] Body Weight 2021-12-04 00:00:00 176 [lb_av] [facility] Practice blood pressure, 2021-03-28 10:43:35 76 mm[Hg] [facility] diastolic Health blood pressure, 2021-03-28 10:43:35 121 mm[Hg] [facility] systolic Health pulse rate 2021-03-28 10:43:35 68 /min [facility] saturation, 2021-03-21 08:17:31 94 /min [facility] oximetry Health blood pressure, 2021-03-21 08:17:31 85 mm[Hg] [facility] diastolic Health blood pressure, 2021-03-21 08:17:31 138 mm[Hg] [facility] systolic Health respiratory rate E&M 2021-03-21 08:17:31 14 /[facility] 2021-03-21 08:17:31 68 [facility] temperature E&M 2021-03-21 08:17:31 98.1 [degF] [facility] Health weight E&M 2021-03-21 08:17:31 171 [facility]lb[facility]av] [facility] kilograms 2021-03-21 08:17:31 77.73 kg L [facility] E& Health temperature site 2021-03-21 08:17:31 [facility] 2021-03-21 08:17:31 157.48 [facility] E& Health blood pressure, 2020-11-01 09:23:12 88 mm[Hg] [facility] diastolic Health blood pressure, 2020-11-01 09:23:12 131 mm[Hg] [facility] systolic Health pulse rate 2020-11-01 09:23:12 66 /[facility] saturation, 2020-11-01 09:23:12 96 /min [facility] oximetry Health respiratory rate E&M 2020-11-01 09:23:12 19 /min [facility] temperature site 2020-11-01 09:23:12 [facility] temperature E&M 2020-11-01 09:23:12 98.4 [degF] [facility] Health weight E&M 2020-11-01 09:23:12 168 [lb_av] [facility] weight in kilograms 2020-11-01 09:23:12 76.36 kg L [facility] E& Health height in 2020-11-01 09:23:12 157.48 [facility] centimeters E& Health oxygen saturation, 2020-09-26 18:37:45 96 /min [facility] oximetry Health blood pressure, 2020-09-26 18:37:45 62 mm[Hg] [facility] diastolic Health blood pressure, 2020-09-26 18:37:45 127 mm[Hg] [facility] systolic Health respiratory rate E&M 2020-09-26 18:37:45 17 /min [facility] Health pulse rate 2020-09-26 18:37:45 78 /min [facility] temperature site 2020-09-26 18:37:45 oral Lega [facility] Health temperature E&M 2020-09-26 18:37:45 99 [degF] [facility]&M 2020-09-26 18:37:45 166.80 [lb_av] [facility] Health weight in kilograms 2020-09-26 18:37:45 75.82 kg L [facility] E& Health height in 2020-09-26 18:37:45 157.48 [facility] E[facility] Health pulse rate 2020-07-12 13:53:30 74 /min [facility] blood pressure, 2020-07-12 13:53:30 81 mm[Hg] [facility] blood pressure, 2020-07-12 13:53:30 125 mm[Hg] [facility] systolic Health respiratory rate E&M 2020-07-12 13:53:30 18 /min [facility] Health temperature E&M 2020-07-12 13:53:30 98.0 [degF] [facility] Health weight E&M 2020-07-12 13:53:30 160 [lb_av] [facility] Health weight in kilograms 2020-07-12 13:53:30 72.73 kg L [facility] E& Health height in 2020-07-12 13:53:30 157.48 cm [facility] ommunity centimeters E&M Health temperature site 2020-07-12 13:53:30 oral [facility] Health blood pressure, 2020-02-24 09:59:05 65 mm[Hg] [facility] diastolic Health blood pressure, 2020-02-24 09:59:05 140 mm[Hg] [facility] systolic Health oxygen saturation, 2020-02-24 09:59:05 96 /min [facility] oximetry Health respiratory rate E&M 2020-02-24 09:59:05 16 /min [facility] Health pulse rate 2020-02-24 09:59:05 63 /min [facility] temperature E&M 2020-02-24 09:59:05 98.3 [degF] [facility] weight E&M 2020-02-24 09:59:05 158.13 [lb_av] [facility] weight in kilograms 2020-02-24 09:59:05 71.88 kg L [facility] E&M Health height in 2020-02-24 09:59:05 157.[facility] centimeters E&M Health temperature site 2020-02-24 09:59:05 oral [facility] Health oxygen saturation, 2020-02-10 10:48:52 96 /min [facility] oximetry Health blood pressure, 2020-02-10 10:48:52 84 mm[Hg] [facility] diastolic Health blood pressure, 2020-02-10 10:48:52 124 mm[Hg] Leg y [facility] systolic Health respiratory rate E&M 2020-02-10 10:48:52 16 /min [facility] Health pulse rate 2020-02-10 10:48:52 66 /min [facility] Health temperature E&M 2020-02-10 10:48:52 98.5 [degF] [facility] height in 2020-02-10 10:48:52 157.48 cm [facility] centimeters E& Health weight E&M 2020-02-10 10:48:52 157 [lb_av] [facility] Health weight in kilograms 2020-02-10 10:48:52 71.36 kg L [facility] E&M Health temperature site 2020-02-10 10:48:52 oral Lega cy [facility] Procedures Procedure Date / Time Performing Clinician Source Performed MAMMO, screening, digital, 2022-01-15 00:00:00 [facility] Routine ophthalmological 2021-03-28 11:15:59 Lj Boateng [facility] examination including Health refraction; new patient [facility] Brief Follow Up 2020-11-16 11:50:26 Angelina [facility] Psychotherapy 30 (16-37*) 2020-11-16 11:50:26 Mateusz [facility]adh[facility] min - [phone] (with patient Health and/or family member) IB Brief Follow Up 2020-11-07 13:51:31 Angelina Child ommunity Health Psychotherapy 30 (16-37*) 2020-11-07 13:51:31 Angelina Child [facility] min - [phone] (with patient Health and/or family member) Diagnostic evaluation with 2020-11-01 13:08:50 Samina Farmer Ma [facility] medical - [id number] Health Behavioral Health - 2020-10-12 10:40:57 [facility] Assessment - 2020-10-12 10:35:15 Angelina Child ommunity Fleet 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 Health Psychotherapy 30 (16-37*) 2020-10-12 10:35:15 Angelina Child [facility] min - [phone] (with patient Health and/or family member) Integrated Behavioral 2020-10-02 07:11:07 Nava Maria [facility] Health Assessment (IBH) Health Vaccines Ordered - Print 2020-02-24 10:28:49 Nixon Smith [facility] Consent/Declination Forms Health Brain Surgery 2014-08-18 00:00:00 [facility] Brain Aneurysm Repr Complx 2014-05-12 00:00:00 [facility] Cholecystectomy 1981-01-10 00:00:00 [facility] Practice Appendectomy 1980-11-20 00:00:00 [facility] Practice Other 1980-11-20 00:00:00 [facility] General Surgery [facility] Hernia Repair [facility] Plan of Care Planned Activity Planned Date Details Comments Source Future Scheduled Test 2023-03-07 [facility] 04:00:32 malignant neoplasm of colon (procedure) [code = 185963690] Future Scheduled Test 2023-03-07 [facility] 04:00:32 malignant neoplasm of colon (procedure) [code = 761450723] Future Scheduled Test 2023-03-07 [facility] 04:00:32 malignant neoplasm of colon (procedure) [code = 971601406] Future Scheduled Test 2023-03-07 COVID-19 VACCINE [facility] 04:00:32 (#1) [code = COVID-19 VACCINE (#1)] Future Scheduled Test 2023-03-07 Hepatitis C Method [facility] 04:00:32 screening (procedure) [code = 272414722] Future Scheduled Test 2023-03-07 [facility] 04:[facility]:32 malignant neoplasm of cervix (procedure) [code = 874046814] Future Scheduled Test 2023-03-07 Scre[facility] 04:00:32 malignant neoplasm of colon (procedure) [code = 916639104] Future Scheduled Test 2023-03-07 [facility] 04:00:32 malignant neoplasm of colon (procedure) [code = 969016582] Future Scheduled Test 2023-03-07 SHINGLES VACCINES (1 [facility] 04:00:32 of 2) [code = SHINGLES VACCINES (1 of 2)] Future Scheduled Test 2023-03-07 BREAST CANCER [facility] 04:00:32 SCREENING [code = BREAST CANCER SCREENING] Future Scheduled Test 2023-03-07 INFLUENZA VACCINE [facility] 04:00:32 (#1) [code = INFLUENZA VACCINE (#1)] Future Scheduled Test 2022-05-04 COVID-19 VACCINE [facility] 03:39:16 (#1) [code = COVID-19 VACCINE (#1)] Future Scheduled Test 2022-05-04 Hepatitis C Method [facility] 03:39:16 screening (procedure) [code = 710068702] Future Scheduled Test 2022-05-04 [facility] 03:39:16 malignant neoplasm of cervix (procedure) [code = [id number]] Future Scheduled Test 2022-05-04 COLONOSCOPY Method [facility] 03:39:16 SCREENING [code = COLONOSCOPY SCREENING] Future Scheduled Test 2022-05-04 SHINGLES VACCINES (1 [facility] 03:39:16 of 2) [code = SHINGLES VACCINES (1 of 2)] Future Scheduled Test 2022-05-04 INFLUENZA VACCINE [facility] 03:39:16 [code = INFLUENZA VACCINE] Future Scheduled Test 2022-05-04 [facility] 03:39:16 SCREENING [code = BREAST CANCER SCREENING] Future Scheduled Test 2022-05-04 COVID-19 VACCINE [facility] 03:39:16 (#1) [code = COVID-19 VACCINE (#1)] Future Scheduled Test 2022-05-04 Hepatitis C Method [facility] 03:39:16 screening (procedure) [code = 125191642] Future Scheduled Test 2022-05-04 Screening for [facility] 03:39:16 malignant neoplasm of cervix (procedure) [code = 762291105] Future Scheduled Test 2022-05-04 COLONOSCOPY Method [facility] 03:39:16 SCREENING [code = COLONOSCOPY SCREENING] Future Scheduled Test 2022-05-04 SHINGLES VACCINES (1 [facility] 03:39:16 of 2) [code = SHINGLES VACCINES (1 of 2)] Future Scheduled Test 2022-05-04 INFLUENZA VACCINE [facility] 03:39:16 [code = INFLUENZA VACCINE] Future Scheduled Test 2022-05-04 BREAST CANCER [facility] 03:39:16 SCREENING [code = BREAST CANCER SCREENING] Future Scheduled Test 2022-02-25 HEPATITIS B VACCINES [facility] 10:34:47 (1 of 3 - 3-dose series) [code = HEPATITIS B VACCINES (1 of 3 - 3-dose series)] Future Scheduled Test 2022-02-25 COVID-19 VACCINE [facility] 10:34:47 (#1) [code = COVID-19 VACCINE (#1)] Future Scheduled Test 2022-02-25 Hepatitis C Method [facility] 10:34:47 screening (procedure) [code = [id number]] Future Scheduled Test 2022-02-25 Screening for [facility] 10:34:47 malignant neoplasm of cervix (procedure) [code = 734383967] Future Scheduled Test 2022-02-25 COLONOSCOPY Method [facility] 10:34:47 SCREENING [code = COLONOSCOPY SCREENING] Future Scheduled Test 2022-02-25 SHINGLES VACCINES (1 [facility] 10:34:47 of 2) [code = SHINGLES VACCINES (1 of 2)] Future Scheduled Test 2022-02-25 INFLUENZA VACCINE [facility] 10:34:47 [code = INFLUENZA VACCINE] Future Scheduled Test 2022-02-25 BREAST CANCER [facility] 10:34:47 SCREENING [code = BREAST CANCER SCREENING] Future Scheduled Test 2022-02-25 HEPATITIS B VACCINES [facility] 10:34:47 (1 of 3 - 3-dose series) [code = HEPATITIS B VACCINES (1 of 3 - 3-dose series)] Future Scheduled Test 2022-02-25 COVID-19 VACCINE [facility] 10:34:47 (#1) [code = COVID-19 VACCINE (#1)] Future Scheduled Test 2022-02-25 Hepatitis C Method [facility] 10:34:47 screening (procedure) [code = 279078820] Future Scheduled Test 2022-02-25 [facility] 10:34:47 malignant neoplasm of cervix (procedure) [code = 731215974] Future Scheduled Test 2022-02-25 COLONOSCOPY Method [facility] 10:34:47 SCREENING [code = COLONOSCOPY SCREENING] Future Scheduled Test 2022-02-25 SHINGLES VACCINES (1 [facility] 10:34:47 of 2) [code = SHINGLES VACCINES (1 of 2)] Future Scheduled Test 2022-02-25 INFLUENZA VACCINE [facility] 10:34:47 [code = INFLUENZA VACCINE] Future Scheduled Test 2022-02-25 BREAST CANCER [facility] 10:34:47 SCREENING [code = BREAST CANCER SCREENING] Instructions [facility] Encounters Start End Encounter Admission Attending Care Care Encounter Source Date/Time Date/Time Type Type Clinicians Facility Department ID 2023 2023 Outpatient ARIADNE KINNEY [id number] Ariadne 08:00:00 08:00:00 ANT gabriel 2023-02-22 2023-02-22 Outpatient ARIADNE FIELDS [id number] Ariadne 00:00:00 00:00:00 QUYNH gabriel 2023-02-17 2023-02-17 Outpatient ARIADNE FIELDS [id number] [place] 00:00:00 00:00:00 QUYNH gabriel 2023-01-29 2023-01-29 Outpatient ARIADNE MCLEOD [id number] [place] 08:45:00 08:45:00 AMIRHOSSEIN Se ybold 2023-01-26 2023-01-26 Outpatient ARIADNE FIELDS [id number] [place] 00:00:00 00:00:00 QUYNH Seybol d 2023-01-21 2023-01-21 Outpatient BISHOPARIADNE [id number] [place] 08:45:00 08:45:00 RUTHIE Seybol d 2023-01-16 2023-01-16 Outpatient ARIADNE FIELDS [id number] [place] 08:30:00 08:30:00 QUYNH Seybol d 2023-01-15 2023-01-15 Outpatient HUNDSatya, ARIADNE AMARO [id number] [place] 00:00:00 00:00:00 QUYNH Seybol d 2023-01-14 2023-01-14 Outpatient HUNDSatya, ARIADNE AMARO [id number] [place] 00:00:00 00:00:00 QUYNH Seybol d 2023-01-09 2023-01-09 Outpatient HUNDARIADNE Hernadez [id number] [place] 00:00:00 00:00:00 QUYNH Seybol d 2023-01-03 2023-01-03 Outpatient LAB90 ARIADNE AMARO [id number] [place] 09:05:00 09:05:00 Seybol d 2022-12-31 2022-12-31 Outpatient PREZASARIADNE [id number] [place] 00:00:00 00:00:00 VINCENZO Seybol d 2022-12-30 2022-12-30 Outpatient ARIADNE KINNEY [id number] [place] 08:00:00 08:00:00 ANT Seybol d 2022-12-29 2022-12-29 Outpatient ARIADNE FIELDS [id number] [place] 00:00:00 00:00:00 QUYNH Seybol d 2022-12-19 2022-12-19 Outpatient NIKAHARIADNE Gabriel [id number] [place] 09:30:00 09:30:00 AMIRHOSSEIN Se ybold 2022-12-18 2022-12-18 Outpatient ARIADNE FIELDS [id number] [place] 00:00:00 00:00:00 QUYNH Seybol d 2022-12-18 2022-12-18 Outpatient ARIADNE FIELDS [id number] [place] 00:00:00 00:00:00 QUYNH Seybol d 2022-12-05 2022-12-05 Outpatient HARSHA ARIADNE AMARO [id number] [place] 09:15:00 09:15:00 AMIRHOSSEIN Se ybold 2022-12-02 2022-12-02 Outpatient LAB90 ARIADNE AMARO [id number] [place] 08:50:00 08:50:00 Seybol d 2022-12-02 2022-12-02 Outpatient ARIADNE FIELDS [id number] [place] 08:00:00 08:00:00 QUYNH Seybol d 2022-10-31 2022-10-31 Outpatient ARIADNE FIELDS [id number] [place] 00:00:00 00:00:00 QUYNH Seybol d 2022-10-11 2022-10-11 Outpatient ARIADNE FIELDS [id number] [place] 00:00:00 00:00:00 QUYNH Seybol d 2022-10-03 2022-10-03 Outpatient ARIADNE FIELDS [id number] [place] 00:00:00 00:00:00 QUYNH Seybol d 2022-10-02 2022-10-02 Outpatient ARIADNE FIELDS [id number] [place] 00:00:00 00:00:00 QUYNH Seybol d 2022-10-01 2022-10-01 Outpatient ARIADNE FIELDS [id number] [place] 08:30:00 08:30:00 QUYNH Seybol d 2022-09-26 2022-09-26 Outpatient ARIADNE FIELDS [id number] [place] 00:00:00 00:00:00 QUYNH Seybol d 2022-09-23 2022-09-23 Outpatient ARIADNE FIELDS [id number] [place] 00:00:00 00:00:00 QUYNH Seybol d 2022-09-09 2022-09-09 Outpatient ERICKA HOWARD [id number] [place] 08:30:00 08:30:00 Seybol d 2022-09-07 2022-09-07 Outpatient ERICKA HOWARD [id number] [place] 00:00:00 00:00:00 Seybol d 2022-09-05 2022-09-05 Outpatient HUNDL ARIADNE AMARO [id number] [place] 00:00:00 00:00:00 QUYNH Seybol d 2022-09-03 2022-09-03 Outpatient LAB90 ARIADNE AMARO [id number] [place] 08:45:00 08:45:00 Seybol d 2022-09-03 2022-09-03 Outpatient HUNDL, ARIADNE AMARO [id number] [place] 08:00:00 08:00:00 QUYNH Seybol d 2022-08-30 2022-08-30 Outpatient HUNDL, ARIADNE AMARO [id number] [place] 00:00:00 00:00:00 QUYNH Seybol d 2022-08-30 2022-08-30 Outpatient HUNDSatya ARIADNE AMARO [id number] [place] 00:00:00 00:00:00 QUYNH Seybol d 2022-08-29 2022-08-29 Outpatient HUNDL, ARIADNE AMARO [id number] [place] 00:00:00 00:00:00 QUYNH Seybol d 2022-08-10 2022-08-10 Outpatient ERICKA HOWARD [id number] [place] 00:00:00 00:00:00 Seybol d 2022-07-27 2022-07-27 Outpatient ARIADNE AMARO [id number] [place] 00:00:00 00:00:00 Seybol d 2022-07-23 2022-07-23 Outpatient ERICKA HOWARD [id number] [place] 00:00:00 00:00:00 Seybol d 2022-07-23 2022-07-23 Outpatient DONNIE ARIADNE AMARO [id number] [place] 00:00:00 00:00:00 QUYNH Seybol d 2022-07-15 2022-07-15 Outpatient ARIADNE AMARO [id number] [place] 09:10:00 09:10:00 Seybol d 2022-07-15 2022-07-15 Outpatient ERICKA HOWARD [id number] [place] 08:45:00 08:45:00 Seybol d 2022-07-15 2022-07-15 Outpatient ARIADNE AMARO [id number] [place] 00:00:00 00:00:00 Seybol d 2022-06-23 2022-06-23 Outpatient Severns_D VFP VFP [id number] [place] [address] 00:00:00 00:00:00 [id number] Family Practic e 2022-06-10 2022-06-10 Outpatient DONNIE, ARIADNE AMARO [id number] [place] 00:00:00 00:00:00 QUYNH Seybol d 2022-06-08 2022-06-08 Outpatient DONNIE, ARIADNE AMARO [id number] [place] 00:00:00 00:00:00 QUYNH Seybol d 2022-06-05 2022-06-05 Outpatient DONNIE, ARIADNE AMARO [id number] [place] 08:00:00 08:00:00 QUYNH Seybol d 2022-06-04 2022-06-04 Outpatient ZOYAL, ARIADNE AMARO [id number] [place] 00:00:00 00:00:00 QUYNH Seybol d 2022-05-30 2022-05-30 Outpatient ZOYAL, ARIADNE AMARO [id number] [place] 00:00:00 00:00:00 QUYNH Seybol d 2022-05-28 2022-05-28 Outpatient LAB90 ARIADNE AMARO [id number] [place] 08:55:00 08:55:00 Seybol d 2022-05-28 2022-05-28 Outpatient ZOYAL, ARIADNE AMARO [id number] [place] 08:00:00 08:00:00 QUYNH Seybol d 2022-05-28 2022-05-28 Outpatient ARIADNE AMARO [id number] [place] 00:00:00 00:00:00 Seybol d 2022-05-19 2022-05-19 Outpatient Severns_D VFP VFP [id number] [place] [address] 00:00:00 00:00:00 [id number] Family Practic e 2022-04-12 2022-04-12 Outpatient Severns_D VFP VFP [id number] [place] [address] 00:00:00 00:00:00 [id number] Family Practic e 2022-03-08 2022-03-08 Outpatient Severns_D VFP VFP [id number] [place] [address] 00:00:00 00:00:00 [id number] Family Practic e 2022-02-01 2022-02-01 Outpatient Severns_D VFP VFP [id number] [place] [address] 00:00:00 00:00:00 [id number] Family Practic e 2022-01-18 2022-01-18 Outpatient Severns_D VFP VFP [id number] [place] [address] 00:00:00 00:00:00 [id number] Family Practic e 2022-01-15 2022-01-15 Outpatient Severns_D VFP VFP [id number] [place] [address] 00:00:00 00:00:00 [id number] Family Practic e 2022-01-15 2022-01-15 Daneila VFP [place] - [id number] [place] ill[place] 00:00:00 00:00:00 Rashmi [facility] Famil y PA: 6[address] Medical - Pract [address] ([place] [address] , Ph. 2022-01-08 2022-01-08 Outpatient Severns_D VFP VFP [id number] [place] [address] 00:00:00 00:00:00 [id number] Family Practic e 2022-01-07 2022-01-07 Outpatient Severns_D VFP VFP [id number] [place] [address] 00:00:00 00:00:00 [id number] Family Practic e 2021-12-05 2021-12-05 Outpatient Severns_D VFP VFP [id number] [place] [address] 00:00:00 00:00:00 [id number] Family Practic e 2021-12-04 2021-12-04 Outpatient Severns_D VFP VFP [id number] [place] [address] 00:00:00 00:00:00 [id number] Family Practic e 2021-12-04 2021-12-04 Daneila VFP [place] - [id number] V ill[place] 00:00:00 00:00:00 Rashmi [facility] Famil y PA: [address] [place] [address], ([place] [address] , Ph. 2021-11-28 2021-11-28 Outpatient Severns_D VFP [facility] [id number] [place] [address] 06:03:00 06:03:00 [id number] Family Practic e 2021-03-21 2021-03-22 Office Nancy Rivera [facility] En counter/ Legacy 00:00:00 00:00:00 Visit Gatuam Sen [id number] Communi [id number] Health 2021-02-22 2021-02-22 [id number] [place] 00:00:00 00:00:00 NIXON [address] 2020-11-16 2020-11-16 Office Angelina Child [facility] Encount er/ Legacy 00:00:00 00:00:00 Visit [id number] Com mey 618788 ty Health 2020-11-02 2020-11-07 Office Angelina Child [facility] Encount er/ Legacy 00:00:00 00:00:00 Visit Samina Farmer 1 [id number] Communi 005434 ty Health 2020-11-01 2020-11-05 Office Nava Maria [facility] Encou nter/ Legacy 00:00:00 00:00:00 Visit Rhona Matamoros [id number] Communi 211435 ty Health 2020-11-01 2020-11-01 Office Darian [facility] Encounte r/ Legacy 00:00:00 00:00:00 Visit Samina Yepez [id number] Communi 968368 ty Health 2020-10-12 2020-10-12 Office Angelina Child [facility] Encount er/ Legacy 00:00:00 00:00:00 Visit [id number] Com mey 756359 ty Health 2020-09-26 2020-10-02 Office Nava Maria [facility] Encou nter/ Legacy 00:00:00 00:00:00 Visit Sapna Foreman [id number] Communi 734387 ty Health 2020-07-12 2020-07-12 Office Jade Marquez [facility] E ncounter/ Legacy 00:00:00 00:00:00 Visit Emi Michel [id number] [facility] 154424 Health 2020-02-29 2020-02-29 Emergency [facility] [id number] [place] [address] 00:00:00 00:00:00 SAMINA [address] 2020-02-25 2020-02-25 Office Responsible [facility] Encoun ter/ Legacy 00:00:00 00:00:00 Visit Provider, [id number] Coby ommuni Not Yet 332280 ty Assigned Health 2020-02-25 2020-02-25 Office Responsible [facility] Encoun ter/ Legacy 00:00:00 00:00:00 Visit Provider, [id number] C ommuni Not Yet 306676 ty [facility] Health 2020-02-24 2020-02-24 Office JASSI Mosley JASSI Encounter / Legacy 00:00:00 00:00:00 Visit Motaz [id number] Com mey 205567 ty Health 2020-02-24 2020-02-24 Office Mosley [facility] Encounter / Legacy 00:00:00 00:00:00 Visit Motaz [id number] Com mey 759438 ty Health 2020-02-24 2020-02-24 Office Nixon Smith [facility] Encounter/ Legacy 00:00:00 00:00:00 Visit [facility]o [facility]ley [id number] [facility] 177291 [facility] Health 2020-02-24 2020-02-24 Office [facility] 00:00:00 00:00:00 Visit Motaz [id number] Com mey 016711 ty Health 2020-02-14 2020-02-14 Office Poncho Torres [facility] Encoun ter/ Legacy 00:00:00 00:00:00 Visit [id number] Com mey 208241 ty Health 2020-02-10 2020-02-10 Office JASSI Mosley JASSI Encounter / Legacy 00:00:00 00:00:00 Visit Motaz [id number] Com mey 602675 ty Health 2020-02-10 2020-02-10 Office JENNY Mosley [facility] Encounter / Legacy 00:00:00 00:00:00 Visit Tayo [id number] Com mey 511706 Health 2020-02-10 2020-02-10 Office Fidelia Melina M [facility] Enc ounter/ Legacy 00:00:00 00:00:00 Visit Marleni Emery [id number] Dorcas Young 800740 [facility] Results Test Description Test Time Test Comments Results Result Comments Source parathormone, serum 2020-11-01 10:30:00 Test Item Value Reference Range Interpretation Comme nts parathormone, serum (test code = 2731-8) 57 pg/mL 15-65 [facility], [id number] 10:30:00 Test Item Value Reference Range Interpretation Comments calcium, serum, ionized (test code 5.2 mg/dL 4.5-5.6 = 280) [facility] glucose, [id number] 09:23:12 Test Item Value Reference Range Interpretation Comments blood glucose, random (test code = 106 mg/dL 2339-0) [facility]immature granulocytes, percentage of total cells, blood 2020-10-02 11:33:00 Test Item Value Reference Range Interpretation Comments immature granulocytes, percentage of 0 % total cells, blood (test code = 48481-5) [facility]basophil count, [id number] 11:33:00 Test Item Value Reference Range Interpretation Comments basophil count, absolute (test 0.1 x10E3/uL 0.0-0.2 code = 10504-1) [facility]Eosinophil Absolute Hjnit2987-72-26 11:33:00 Test Item Value Reference Range Interpretation Comments Eosinophil Absolute Count (test 0.2 X10E3/UL 0.0-0.4 code = 78711-4) [facility]monocyte count, blood, lrrttxywt7249-14-88 11:33:00 Test Item Value Reference Range Interpretation Comments monocyte count, blood, automated 0.4 X10E3/UL 0.1-0.9 (test code = 742-7) [facility]lymph[facility] count, blood, [id number] 11:33:00 Test Item Value Reference Range Interpretation Comments lymphocyte count, blood, 2.4 X10E3/UL 0.7-3.1 automated (test code = 731-0) [facility] HealthAbsolute Haixbuqjryx6253-29-73 11:33:00 Test Item Value Reference Range Interpretation Comments Absolute Neutrophils (test code 4.1 X10E3/UL 1.4-7.0 = 73364-2) [facility]basophils as percent of blood ozwcibhfcn6746-30-70 11:33:00 Test Item Value Reference Range Interpretation Comments basophils as percent of blood 1 % leukocytes (test code = 707-0) [facility] as percent of blood quogruupud2966-80-30 11:33:00 Test Item Value Reference Range Interpretation Comments eosinophils as percent of blood 3 % leukocytes (test code = 713-8) [facility] Health[facility] percent of blood beuzukkfcz5291-37-37 11:33:00 Test Item Value Reference Range Interpretation Comments monocytes as percent of blood 6 % leukocytes (test code = 5905-5) [facility]lymphocytes as percent of blood vramjwkpyv5401-04-23 11:33:00 Test Item Value Reference Range Interpretation Comments lymphocytes as percent of blood 34 % leukocytes (test code = 736-9) [facility]neutrophils as percent of blood vzpjjdnanr3892-66-44 11:33:00 Test Item Value Reference Range Interpretation Comments neutrophils as percent of blood 56 % leukocytes (test code = 770-8) [facility]platelet kdnxz5414-64-63 11:33:00 Test Item Value Reference Range Interpretation Comments platelet count (test code = 317 X10E3/UL 150-450 777-3) [facility]red blood cell distribution kyoar1427-84-52 11:33:00 Test Item Value Reference Range Interpretation Comments red blood cell distribution width 13.1 % 11.7-15.4 (test code = 788-0) [facility] corpuscular hemoglobin concentration, [id number] 11:33:00 Test Item Value Reference Range Interpretation Comments mean corpuscular hemoglobin 32.8 G/DL 31.5-35.7 concentration, RBC (test code = 786-4) [facility] hemoglobin, [id number] 11:33:00 Test Item Value Reference Range Interpretation Comments mean corpuscular hemoglobin, RBC 29.4 pg 26.6-33.0 (test code = 785-6) [facility]mean corpuscular volume, [id number] 11:33:00 Test Item Value Reference Range Interpretation Comments mean corpuscular volume, RBC (test code 90 fL 79-97 = 787-2) [facility]hematocrit, coowe3543-65-49 11:33:00 Test Item Value Reference Range Interpretation Comments hematocrit, blood (test code = 4544-3) 45.4 % 34.0-46.6 [facility]hemoglobin, immdi3982-15-35 11:33:00 Test Item Value Reference Range Interpretation Comments hemoglobin, blood (test code = 14.9 g/dL 11.1-15.9 718-7) [facility]therythrocyte (RBC) [id number] 11:33:00 Test Item Value Reference Range Interpretation Comments erythrocyte (RBC) count (test 5.07 X10E6/UL 3.77-5.28 code = 789-8) [facility]leukocyte count, tbhjk7421-63-86 11:33:00 Test Item Value Reference Range Interpretation Comments leukocyte count, blood (test 7.1 X10E3/UL 3.4-10.8 code = 6690-2) [facility]hthyroxine, serum, [id number] 11:33:00 Test Item Value Reference Range Interpretation Comments thyroxine, serum, free (test code 1.07 ng/dL 0.82-1.77 = 3024-7) [facility]hthyroid stimulating hormone, bwcaj5185-01-76 11:33:00 Test Item Value Reference Range Interpretation Comments thyroid stimulating hormone, 2.650 u[IU]/mL 0.450-4.500 serum (test code = 3016-3) [facility]vitamin D 25-hydroxy, mlwqy1608-34-58 11:33:00 Test Item Value Reference Range Interpretation Comments vitamin D 25-hydroxy, serum (test 21.9 ng/mL 30.0-100.0 L code = 59431-8) [facility]hemoglobin A1C, blood, as % of total fgcweqevyo2477-50-11 11:33:00 Test Item Value Reference Range Interpretation Comments hemoglobin A1C, blood, as % of total 6.2 % 4.8-5.6 H hemoglobin (test code = 4548-4) [facility] Healthalanine aminotransferase (SGPT), [id number] 11:33:00 Test Item Value Reference Range Interpretation Comments alanine aminotransferase (SGPT), serum 28 1/L 0-32 (test code = 1742-6) [facility] Healthaspartate aminotransferase (SGOT), kxeku8057-56-31 11:33:00 Test Item Value Reference Range Interpretation Comments aspartate aminotransferase (SGOT), 18 1/L 0-40 serum (test code = 1920-8) [facility] Healthalkaline phosphatase, jirej0512-14-76 11:33:00 Test Item Value Reference Range Interpretation Comments alkaline phosphatase, serum (test 107 1/L 48-121 code = 1783-0) [facility]bilirubin, serum, [id number] 11:33:00 Test Item Value Reference Range Interpretation Comments bilirubin, serum, total (test code 0.3 mg/dL 0.0-1.2 = 1975-2) [facility] Healthalbumin/globulin ratio, [id number] 11:33:00 Test Item Value Reference Range Interpretation Comments albumin/globulin ratio, 2.0 (unknown unit) 1.2-2.2 serum (test code = 1759-0) [facility] Healthglobulin, ddyno5079-06-27 11:33:00 Test Item Value Reference Range Interpretation Comments globulin, serum (test code 2.4 (unknown unit) 1.5-4.5 = 2336-6) [facility] Healthalbumin, [id number] 11:33:00 Test Item Value Reference Range Interpretation Comments albumin, serum (test code = 1751-7) 4.8 g/dL 3.8-4.9 [facility] Healthprotein, total, [id number] 11:33:00 Test Item Value Reference Range Interpretation Comments protein, total, serum (test code = 7.2 g/dL 6.0-8.5 2885-2) [facility]calcium, rnhhl7096-87-10 11:33:00 Test Item Value Reference Range Interpretation Comments calcium, serum (test code = 10.7 mg/dL 8.7-10.2 H 1999-12) [facility] Healthcarbon dioxide, venous qdxkv3243-90-37 11:33:00 Test Item Value Reference Range Interpretation Comments carbon dioxide, venous blood (test 24 mmol/L code = 2027-1) [facility] Healthchloride, [id number] 11:33:00 Test Item Value Reference Range Interpretation Comments chloride, serum (test code = 105 mmol/L 96-106 5-0) [facility] Healthpotassium, ztqro6756-06-05 11:33:00 Test Item Value Reference Range Interpretation Comments potassium, serum (test code = 5.2 mmol/L 3.5-5.2 2823-3) [facility]sodium, [id number] 11:33:00 Test Item Value Reference Range Interpretation Comments sodium, serum (test code = 2951-2) 142 mmol/L 134-144 [facility] Healthurea nitrogen/creatinine ratio, eycfa2500-50-67 11:33:00 Test Item Value Reference Range Interpretation Comments urea nitrogen/creatinine 19 (unknown unit) 9-23 ratio, serum (test code = 3097-3) [facility] HealtheGFR if Oxhldhos9924-79-39 11:33:00 Test Item Value Reference Range Interpretation Comments eGFR if 82 mL/min/{1.73 m2} >59 (test code = 28485-8) [facility] HealthEstimated Glomerular Filtration Rate (calc)2020-10-02 11:33:00 Test Item Value Reference Range Interpretation Comments Estimated Glomerular 71 mL/min/{1.73 m2} >59 Filtration Rate (calc) (test code = 92458-2) [facility] Healthcreatinine, [id number] 11:33:00 Test Item Value Reference Range Interpretation Comments creatinine, serum (test code = 0.90 mg/dL 0.57-1.00 0-0) [facility] Healthurea nitrogen, [id number] 11:33:00 Test Item Value Reference Range Interpretation Comments urea nitrogen, blood (test code = 17 mg/dL 11-024-0) [facility] Healthblood glucose, [id number] 11:33:00 Test Item Value Reference Range Interpretation Comments blood glucose, random (test code = 113 mg/dL 65-99 H 2339-0) [facility]hemoglobin A1C, blood, as % of total awscpgcarp2448-47-13 11:23:00 Test Item Value Reference Range Interpretation Comments hemoglobin A1C, blood, as % of total 6.2 % 4.8-5.6 H hemoglobin (test code = 4548-4) [facility] HealthLDL cholesterol, [id number] 11:23:00 Test Item Value Reference Range Interpretation Comments LDL cholesterol, serum (test code = 62 mg/dL 0-99 2088-1) [facility] Healthvery low density nsqyjuvatqlg9386-30-43 11:23:00 Test Item Value Reference Range Interpretation Comments very low density lipoproteins (test 36 mg/dL 5-40 code = 1-7) [facility] HealthHDL cholesterol, [id number] 11:23:00 Test Item Value Reference Range Interpretation Comments HDL cholesterol, serum (test code = 43 mg/dL >39 2084-9) [facility]htriglyceride, serum, [id number] 11:23:00 Test Item Value Reference Range Interpretation Comments triglyceride, serum, fasting (test 223 mg/dL 0-149 H code = 2571-8) [facility]cholesterol, [id number] 11:23:00 Test Item Value Reference Range Interpretation Comments cholesterol, serum (test code = 141 mg/dL 923-705 0823-3) [facility]alanine aminotransferase (SGPT), [id number] 11:23:00 Test Item Value Reference Range Interpretation Comments alanine aminotransferase (SGPT), serum 27 1/L 0-32 (test code = 1742-6) [facility] Healthaspartate aminotransferase (SGOT), [id number] 11:23:00 Test Item Value Reference Range Interpretation Comments aspartate aminotransferase (SGOT), 19 1/L 0-40 serum (test code = 1920-8) [facility] Healthalkaline phosphatase, [id number] 11:23:00 Test Item Value Reference Range Interpretation Comments alkaline phosphatase, serum (test code 98 1/L 39-117 = 1783-0) [facility]bilirubin, serum, [id number] 11:23:00 Test Item Value Reference Range Interpretation Comments bilirubin, serum, total (test code 0.4 mg/dL 0.0-1.2 = 1974-2) [facility] Healthalbumin/globulin ratio, [id number] 11:23:00 Test Item Value Reference Range Interpretation Comments albumin/globulin ratio, 2.0 (unknown unit) 1.2-2.2 serum (test code = 1759-0) [facility] Healthglobulin, [id number] 11:23:00 Test Item Value Reference Range Interpretation Comments globulin, serum (test code 2.4 (unknown unit) 1.5-4.5 = 2336-6) [facility] Healthalbumin, [id number] 11:23:00 Test Item Value Reference Range Interpretation Comments albumin, serum (test code = 1751-7) 4.7 g/dL 3.8-4.9 [facility] Healthprotein, total, [id number] 11:23:00 Test Item Value Reference Range Interpretation Comments protein, total, serum (test code = 7.1 g/dL 6.0-8.5 2885-2) [facility] Healthcalcium, ytopl2618-99-11 11:23:00 Test Item Value Reference Range Interpretation Comments calcium, serum (test code = 10.2 mg/dL 8.7-10.2 1999-) [facility]carbon dioxide, venous [id number] 11:23:00 Test Item Value Reference Range Interpretation Comments carbon dioxide, venous blood (test 24 mmol/L code = 7-1) [facility] Healthchloride, [id number] 11:23:00 Test Item Value Reference Range Interpretation Comments chloride, serum (test code = 103 mmol/L 96-106 5-0) [facility] Healthpotassium, giake2982-26-12 11:23:00 Test Item Value Reference Range Interpretation Comments potassium, serum (test code = 4.5 mmol/L 3.5-5.2 2823-3) [facility]sodium, [id number] 11:23:00 Test Item Value Reference Range Interpretation Comments sodium, serum (test code = 2951-2) 140 mmol/L 134-144 [facility] Healthurea nitrogen/creatinine ratio, [id number] 11:23:00 Test Item Value Reference Range Interpretation Comments urea nitrogen/creatinine 25 (unknown unit) 9-23 H ratio, serum (test code = 3097-3) [facility] HealtheGFR if Ogbhteew6089-47-68 11:23:00 Test Item Value Reference Range Interpretation Comments eGFR if 95 mL/min/{1.73 m2} >59 (test code = 72554-1) [facility] HealthEstimated Glomerular Filtration Rate (calc)2020-02-10 11:23:00 Test Item Value Reference Range Interpretation Comments Estimated Glomerular 82 mL/min/{1.73 m2} >59 Filtration Rate (calc) (test code = 48387-4) [facility] Healthcreatinine, [id number] 11:23:00 Test Item Value Reference Range Interpretation Comments creatinine, serum (test code = 0.80 mg/dL 0.57-1.00 2160-0) [facility] Healthurea nitrogen, [id number] 11:23:00 Test Item Value Reference Range Interpretation Comments urea nitrogen, blood (test code = 20 mg/dL 6-24 3094-0) [facility] Healthblood glucose, [id number] 11:23:00 Test Item Value Reference Range Interpretation Comments blood glucose, random (test code = 103 mg/dL 65-99 H 2339-0) [facility], percentage of total cells, blood 2020-02-10 11:23:00 Test Item Value Reference Range Interpretation Comments immature granulocytes, percentage of 0 % total cells, blood (test code = 98041-2) [facility]ophil count, [id number] 11:23:00 Test Item Value Reference Range Interpretation Comments basophil count, absolute (test 0.0 x10E3/uL 0.0-0.2 code = 54247-9) [facility]Eosinophil Absolute [id number] 11:23:00 Test Item Value Reference Range Interpretation Comments Eosinophil Absolute Count (test 0.2 X10E3/UL 0.0-0.4 code = 40590-3) [facility]monocyte count, blood, [id number] 11:23:00 Test Item Value Reference Range Interpretation Comments monocyte count, blood, automated 0.5 X10E3/UL 0.1-0.9 (test code = 742-7) [facility]lymphocyte count, blood, [id number] 11:23:00 Test Item Value Reference Range Interpretation Comments lymphocyte count, blood, 2.4 X10E3/UL 0.7-3.1 automated (test code = 731-0) [facility]Absolute [id number] 11:23:00 Test Item Value Reference Range Interpretation Comments Absolute Neutrophils (test code 4.4 X10E3/UL 1.4-7.0 = 61416-3) [facility] of blood [id number] 11:23:00 Test Item Value Reference Range Interpretation Comments basophils as percent of blood 1 % leukocytes (test code = 707-0) [facility]theosinophils as percent of blood [id number] 11:23:00 Test Item Value Reference Range Interpretation Comments eosinophils as percent of blood 2 % leukocytes (test code = 713-8) [facility]monocytes as percent of blood [id number] 11:23:00 Test Item Value Reference Range Interpretation Comments monocytes as percent of blood 6 % leukocytes (test code = 5905-5) [facility]lymphocytes as percent of blood [id number] 11:23:00 Test Item Value Reference Range Interpretation Comments lymphocytes as percent of blood 32 % leukocytes (test code = 736-9) [facility]neutrophils as percent of blood [id number] 11:23:00 Test Item Value Reference Range Interpretation Comments neutrophils as percent of blood 59 % leukocytes (test code = 770-8) [facility]platelet [id number] 11:23:00 Test Item Value Reference Range Interpretation Comments platelet count (test code = 321 X10E3/UL 150-450 777-3) [facility]red blood cell distribution [id number] 11:23:00 Test Item Value Reference Range Interpretation Comments red blood cell distribution width 12.8 % 11.7-15.4 (test code = 788-0) [facility]mean corpuscular hemoglobin concentration, [id number] 11:23:00 Test Item Value Reference Range Interpretation Comments mean corpuscular hemoglobin 32.5 G/DL 31.5-35.7 concentration, RBC (test code = 786-4) [facility]mean corpuscular hemoglobin, [id number] 11:23:00 Test Item Value Reference Range Interpretation Comments mean corpuscular hemoglobin, RBC 29.7 pg 26.6-33.0 (test code = 785-6) [facility]mean corpuscular volume, [id number] 11:23:00 Test Item Value Reference Range Interpretation Comments mean corpuscular volume, RBC (test code 92 fL 79-97 = 787-2) [facility]hematocrit, [id number] 11:23:00 Test Item Value Reference Range Interpretation Comments hematocrit, blood (test code = 4544-3) 46.2 % 34.0-46.6 [facility]hemoglobin, [id number] 11:23:00 Test Item Value Reference Range Interpretation Comments hemoglobin, blood (test code = 15.0 g/dL 11.1-15.9 718-7) [facility]therythrocyte (RBC) [id number] 11:23:00 Test Item Value Reference Range Interpretation Comments erythrocyte (RBC) count (test 5.05 X10E6/UL 3.77-5.28 code = 789-8) [facility]leukocyte count, [id number] 11:23:00 Test Item Value Reference Range Interpretation Comments leukocyte count, blood (test 7.5 X10E3/UL 3.4-10.8 code = 6690-2) [facility]
[2023-03-09 10:27] LABS: Absolute Lymphocytes (CBC) 1.3 K/uL (0.7-4.9); Hematocrit 39.7 % (36.0-45.0); Lymphocytes % 18.7 % (15.3-44.8); MCV 89.6 fL (80-100); MPV 7.2 fL (7.6-11.3); Platelets 276 thou/uL (152-406); RBC Red Blood Cell Count 4.44 M/uL (3.86-4.86)
[2023-03-09 10:33] LABS: Protime INR 1.09
--- NOTE | 2023-03-09 10:57 | RAD REPORT ---
EXAM DESCRIPTION: Chaya Single View03/09/2023 10:38 am CLINICAL HISTORY: Chest pain COMPARISON: none FINDINGS: Left lateral base is hazy. Right lung appears clear. Heart is normal size IMPRESSION: Left lateral base is hazy. Most likely this is secondary to overlying soft tissue. If th e patient has clinical symptoms to suggest an infiltrate then PA and lateral chest series would be re commended
[2023-03-09 11:08] LABS: Albumin 3.6 g/dL (3.4-5.0); Bilirubin Direct 0.1 mg/dL (0-0.2); Bilirubin Indirect, Calculated 0.4 mg/dL (0.2-0.8); Bilirubin Total 0.5 mg/dL (0.2-1.0); Magnesium 2.2 mg/dL (1.6-2.4); Potassium 3.6 mEq/L (3.5-5.1); Troponin High Sensitivity 6.9 pg/mL (<58.9)
--- NOTE | 2023-03-09 12:35 | RAD REPORT ---
EXAM DESCRIPTION: CT - Head Brain Wo Cont - 03/09/2023 12:21 pm CLINICAL HISTORY: Dizziness COMPARISON: None TECHNIQUE: Computed axial tomography of the head was obtained. IV contrast was not requested. All CT scans are performed using dose optimization technique as appropriate and may include automated exposure control or mA/KV adjustment according to patient size. FINDINGS: An intracranial bleed is not seen The ventricles are normal in caliber No extra-axial fluid collection is noted. 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 Fluid within the sinuses/ mastoids is not seen. IMPRESSION: No acute intracranial abnormality is seen
--- NOTE | 2023-03-09 12:58 | ER ---
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 Resolved with medication given ll1 by EMS, Dizzy and nausea also. EMS states: NS on monitor, FS 120, VSS. 20 G L FA. Given aspirin 324 MG PO, 1 nitro, and zofran 4 MG IV. Coronavirus screen: Vaccine status: Patient reports being unvaccinated. Client denies travel out of the [place] in the last 14 days. At this time, the client does not indicate any symptoms associated with coronavirus-19. Ebola Screen: Patient denies travel to an Ebola-affected area in the 21 days before illness onset. Initial Sepsis Screen: Does the patient meet any 2 criteria? No. Patient's initial sepsis screen is negative. Does the patient have a suspected source of infection? No. Patient's initial sepsis screen is negative. Risk Assessment: Do you want to hurt yourself or someone else? Patient reports no desire to harm self or others. Onset of symptoms was March 09, 2023. 10:00 Method Of Arrival: EMS ll1 10:00 Acuity: LILLIAM 3 ll1 Triage Assessment: 10:04 General: Appears uncomfortable, Behavior is calm, cooperative, appropriate for age. ll1 Pain: Denies pain. Neuro: Reports dizziness. Cardiovascular: Reports chest pain, fatigue, nausea. Historical: - Allergies: 10:03 No Known Allergies; ll1 - Home Meds: 16:16 omeprazole 40 mg Oral capsule,delayed release (e.c.) 1 cap daily [Active]; magnesium ll1 oxide 420 mg Oral tablet 1 tab daily [Active]; atorvastatin 20 mg oral tablet 1 tab daily [Active]; levothyroxine 50 mcg tablet 1 tabs daily [Active]; hydrochlorothiazide 12.5 mg Oral tablet 1 tabs daily [Active]; berberine 2 tabs AM 2 tab daily [Active]; nerve comfort 1 tab PM [Active]; amlodipine 5 mg tablet 1 tab daily [Active]; aspirin 81 mg Oral capsule 1 cap daily [Active]; losartan potassium (bulk) 100 MG 1 tab daily [Active]; - PMHx: 10:03 Hypertensive disorder; Hypercholesterolemia; pre-diabetes; ll1 - PSHx: 10:03 brain aneurysm SX; Appendectomy; Total abdominal hysterectomy; Cholecystectomy; hernia ll1 repair; - Immunization history:: Adult Immunizations up to date. - Social history:: Smoking status: Patient denies any tobacco usage or history of. Screenin:54 [facility] ED Fall Risk Assessment (Adult) Score/Fall Risk Level 0 - 2 = Low Risk ll1 Oriented to surroundings, Maintained a safe environment, Educated pt \T\ family on fall prevention, incl call for assistance when getting out of bed, Hourly rounding (assess needs \T\ fall precautionary measures) done. Abuse screen: Denies threats or abuse. Nutritional screening: No deficits noted. Tuberculosis screening: No symptoms or risk factors identified. Assessment: 10:14 Reassessment: No changes from previously documented assessment. Patient and/or family ll1 updated on plan of care and expected duration. Pain level reassessed. Viv Brower at BS. 11:14 Reassessment: No changes from previously documented assessment. Patient and/or family ll1 updated on plan of care and expected duration. Pain level reassessed. Patient is alert, oriented x 3, equal unlabored respirations, skin warm/dry/pink. 12:03 Reassessment: No changes from previously documented assessment. Patient and/or family ll1 updated on plan of care and expected duration. Pain level reassessed. Patient is alert, oriented x 3, equal unlabored respirations, skin warm/dry/pink. 12:48 Reassessment: No changes from previously documented assessment. Viv bailey BS. To ll1 restroom via wheelchair. 13:40 Reassessment: No changes from previously documented assessment. Patient and/or family ll1 updated on plan of care and expected duration. Pain level reassessed. 14:38 Reassessment: No changes from previously documented assessment. Patient and/or family ll1 updated on plan of care and expected duration. Pain level reassessed. Patient is alert, oriented x 3, equal unlabored respirations, skin warm/dry/pink. 15:38 Reassessment: No changes from previously documented assessment. Patient and/or family ll1 updated on plan of care and expected duration. Pain level reassessed. Patient is alert, oriented x 3, equal unlabored respirations, skin warm/dry/pink. Pain: Denies pain. 16:20 Reassessment: No changes from previously documented assessment. Patient and/or family ll1 updated on plan of care and expected duration. Pain level reassessed. Med list completed. 16:55 Pain: Pain does not radiate. Pain began this morning. ll1 19:00 Reassessment: Patient appears in no apparent distress at this time. Patient and/or jb4 family updated on plan of care and expected duration. Pain level reassessed. Patient is alert, oriented x 3, equal unlabored respirations, skin warm/dry/pink. 20:00 Reassessment: Patient appears in no apparent distress at this time. Patient and/or jb4 family updated on plan of care and expected duration. Pain level reassessed. Patient is alert, oriented x 3, equal unlabored respirations, skin warm/dry/pink. 21:00 Reassessment: Patient appears in no apparent distress at this time. Patient and/or jb4 family updated on plan of care and expected duration. Pain level reassessed. Patient is alert, oriented x 3, equal unlabored respirations, skin warm/dry/pink. Vital Signs: 10:00 BP 131 / 86; Pulse 67; Resp 17; Temp 97.6; Pulse Ox 97% ; Weight 72.57 kg; Height 5 ft. ll1 1 in. ; Pain 0/10; 11:38 BP 119 / 77; Pulse 61; Resp 16; Pulse Ox 96% ; ll1 12:58 BP 132 / 84; Pulse 60; Resp 16; Pulse Ox 100% ; ll1 13:39 BP 125 / 61; Pulse 66; Pulse Ox 97% on R/A; ll1 14:37 BP 105 / 67; Pulse 65; Resp 16; Pulse Ox 96% ; ll1 15:38 Pulse 60; Resp 15; Pulse Ox 98% ; ll1 16:53 BP 109 / 72; Pulse 59; Resp 15; Pulse Ox 96% on R/A; ll1 21:15 BP 104 / 60; Pulse 68; Resp 20; Temp 98.5(O); Pulse Ox 98% on R/A; jb4 10:00 Body Mass Index 30.23 (72.57 kg, 154.94 cm) ll1 10:00 Pain Scale: Adult ll1 ED Course: 10:00 Patient arrived in ED. ll1 10:00 Wilfredo Rico, RN is Primary Nurse. ll1 10:02 Triage completed. ll1 10:04 Leslie Brower PA-C is PHCP. sb4 10:04 Epifanio Denney MD is Attending Physician. sb4 10:04 Arm band placed on Patient placed in an exam room, on a stretcher. ll1 10:04 No provider procedures requiring assistance completed. Maintain EMS IV. Dressing ll1 intact. Good blood return noted. Site clean \T\ dry. Gauge \T\ site: 20 G L FA. Patient maintains SpO2 saturation greater than 95% on room air. 10:40 XRAY Chest (1 view) In Process Unspecified. EDMS 12:23 Head Brain Wo Cont CT In Process Unspecified. EDMS 12:57 Reyes Chavira MD is Hospitalizing Provider. sb4 13:17 D-Dimer Sent. ll1 16:55 Patient has correct armband on for positive identification. Bed in low position. ll1 Provided Education on: n/a. Client placed on continuous cardiac and pulse oximetry monitoring. NIBP monitoring applied. property assessment monitor on. 16:55 Patient admitted, IV remains in place. ll1 Administered Medications: No medications were administered Medication: 16:55 VIS not applicable for this client. ll1 Outcome: 12:58 Decision to Hospitalize by Provider. sb4 16:54 Admitted to ER Hold. Please see [facility] for further documentation. ll1 16:54 Condition: stable 16:54 Instructed on the need for admit, 22:01 Patient left the ED. jb4 Signatures: Dispatcher [employer] EDMS René Snider, RN RN jb4 Wilfredo Rico, RN RN ll1 Leslie Brower PA-C PA-C sb4 Corrections: (The following items were deleted from the chart) 21:28 21:15 Pulse 68bpm; Resp 20bpm; Pulse Ox 98% RA; Temp 98.5F Oral; jb4 jb4
--- NOTE | 2023-03-09 12:59 | EDPHYS ---
Physician Documentation [facility] Name: Saroj Zacarias Age: 62 yrs Sex: Female : 1960 Arrival Date: 03/09/2023 Time: 09:53 Bed 3 Private MD: ED Physician Epifanio Denney HPI: 03/09 19:38 This 62 yrs old Female presents to ER via EMS with complaints of Chest Pain. sb4 19:38 patient states she woke up this morning with substernal chest pain that radiated up to sb4 her left neck/jaw associated with dizziness and diaphoresis. she states the pain felt like a heaviness/pressure. she called EMS who administered 324 aspirin, nitro SL, and zofran. she states the chest pain improved greatly with nitro but is still complaining of dizziness. she has never seen a sleeping room cleaner before nor had a cardiac work up. Historical: - Allergies: 10:03 No Known Allergies; ll1 - Home Meds: 16:16 omeprazole 40 mg Oral capsule,delayed release (e.c.) 1 cap daily [Active]; magnesium ll1 oxide 420 mg Oral tablet 1 tab daily [Active]; atorvastatin 20 mg oral tablet 1 tab daily [Active]; levothyroxine 50 mcg tablet 1 tabs daily [Active]; hydrochlorothiazide 12.5 mg Oral tablet 1 tabs daily [Active]; berberine 2 tabs AM 2 tab daily [Active]; nerve comfort 1 tab PM [Active]; amlodipine 5 mg tablet 1 tab daily [Active]; aspirin 81 mg Oral capsule 1 cap daily [Active]; losartan potassium (bulk) 100 MG 1 tab daily [Active]; - PMHx: 10:03 Hypertensive disorder; Hypercholesterolemia; pre-diabetes; ll1 - PSHx: 10:03 brain aneurysm SX; Appendectomy; Total abdominal hysterectomy; Cholecystectomy; hernia ll1 repair; - Immunization history:: Adult Immunizations up to date. - Social history:: Smoking status: Patient denies any tobacco usage or history of. ROS: 19:38 Constitutional: Negative for fever, chills, and weight loss, sb4 19:38 Cardiovascular: Positive for chest pain, 19:38 Neuro: Positive for dizziness, 19:38 All other systems are negative, Exam: 19:38 Constitutional: This is a well developed, well nourished patient who is awake, alert, sb4 and in no acute distress. Head/Face: Normocephalic, atraumatic. Eyes: Extra-ocular motions intact. Periorbital areas with no swelling, redness, or edema. ENT: Mucous membranes moist. Cardiovascular: Regular rate and rhythm with a normal S1 and S2. Respiratory: Lungs have equal breath sounds bilaterally, clear to auscultation and percussion. No rales, rhonchi or wheezes noted. No increased work of breathing, no retractions or nasal flaring. Abdomen/GI: Soft, non-tender, no distension. Skin: Warm, dry with normal turgor. Normal color with no rashes, no lesions, and no evidence of cellulitis. MS/ Extremity: Pulses equal, no cyanosis. Neurovascular intact. Full, normal range of motion. Neuro: Awake and alert, GCS 15, oriented to person, place, time, and situation. Motor strength 5/5 in all extremities. Sensory grossly intact. Vital Signs: 10:00 BP 131 / 86; Pulse 67; Resp 17; Temp 97.6; Pulse Ox 97% ; Weight 72.57 kg; Height 5 ft. ll1 1 in. ; Pain 0/10; 11:38 BP 119 / 77; Pulse 61; Resp 16; Pulse Ox 96% ; ll1 12:58 BP 132 / 84; Pulse 60; Resp 16; Pulse Ox 100% ; ll1 13:39 BP 125 / 61; Pulse 66; Pulse Ox 97% on R/A; ll1 14:37 BP 105 / 67; Pulse 65; Resp 16; Pulse Ox 96% ; ll1 15:38 Pulse 60; Resp 15; Pulse Ox 98% ; ll1 16:53 BP 109 / 72; Pulse 59; Resp 15; Pulse Ox 96% on R/A; ll1 21:15 BP 104 / 60; Pulse 68; Resp 20; Temp 98.5(O); Pulse Ox 98% on R/A; jb4 10:00 Body Mass Index 30.23 (72.57 kg, 154.94 cm) ll1 10:00 Pain Scale: Adult ll1 MDM: 10:04 Patient medically screened. sb4 12:49 Scoring Tools HEART Score: History: ECG: Age: Risk Factors: > or = 3 Risk factors for sb4 atherosclerotic disease (2), Troponin: Total Score = 5. 19:38 Differential diagnosis: acute SD, unstable angina, stable angina, CVA, cardiac sb4 arrhythmia. Data reviewed: vital signs, nurses notes, EMS record, lab test result(s), EKG, radiologic studies, and as a result, I will admit patient. Consideration of Admission/Observation Patient was admitted/placed on observation. Management of patient was discussed with the following: Hospitalist: Dr Chavira, accepts patient for admission. Care significantly affected by the following chronic conditions: Hypertension. Counseling: I had a detailed discussion with the patient and/or guardian regarding the historical points, exam findings, and any diagnostic results supporting the discharge/admit diagnosis, the presence of at least one elevated blood pressure reading (>120/80) during this emergency department visit, lab results, radiology results, the need for further work-up and treatment in the hospital. 03/09 10:04 Order name: Basic Metabolic Panel; Complete Time: 11:08 sb4 03/09 10:04 Order name: CBC with Diff; Complete Time: : sb4 03/09 10:04 Order name: LFT's; Complete Time: 11:08 sb4 03/09 10:04 Order name: Magnesium; Complete Time: 11:08 sb4 03/09 10:04 Order name: NT PRO-BNP; Complete Time: 11:08 sb4 03/09 10:04 Order name: PT-INR; Complete Time: 10:38 sb4 03/09 10:04 Order name: Troponin HS; Complete Time: 11:08 sb4 03/09 12:58 Order name: D-Dimer; Complete Time: 13:27 sb4 03/09 13:28 Order name: Basic Metabolic Panel EDIA 03/09 13:28 Order name: Basic Metabolic Panel EDMS 03/09 13:28 Order name: Basic Metabolic Panel EDMS 03/09 13:28 Order name: Basic Metabolic Panel EDMS 03/09 13:28 Order name: CBC with Automated Diff EDMS 03/09 13:28 Order name: CBC with Automated Diff EDMS 03/09 13:28 Order name: CBC with Automated Diff EDMS 03/09 13:28 Order name: CBC with Automated Diff EDMS 03/09 13:28 Order name: Lipid Profile EDMS 03/09 13:28 Order name: Lipid Profile; Complete Time: 18:16 EDMS 03/09 13:30 Order name: Troponin High Sensitivity EDMS 03/09 13:30 Order name: Troponin High Sensitivity; Complete Time: 18:06 EDMS 03/09 13:30 Order name: Troponin High Sensitivity EDMS 03/09 10:04 Order name: XRAY Chest (1 view); Complete Time: 10:59 sb4 03/09 10:56 Order name: Head Brain Wo Cont CT; Complete Time: 12:37 sb4 03/09 13:27 Order name: Echo with Doppler EDMS 03/09 10:04 Order name: EKG; Complete Time: 10:05 sb4 03/09 13:27 Order name: CONS Physician Consult EDMS 03/09 13:27 Order name: EKG Electrocardiogram EDMS 03/09 13:28 Order name: EKG Electrocardiogram EDMS 03/09 13:28 Order name: EKG Electrocardiogram EDMS 03/09 13:28 Order name: EKG Electrocardiogram EDMS 03/09 10:04 Order name: Cardiac monitoring; Complete Time: 10:14 sb4 03/09 10:04 Order name: EKG - Nurse/Tech; Complete Time: 10:14 sb4 03/09 10:04 Order name: IV Saline Lock; Complete Time: 10:14 sb4 03/09 10:05 Order name: Labs collected and sent; Complete Time: 10:36 sb4 03/09 10:05 Order name: O2 Per Protocol; Complete Time: 10:14 sb4 03/09 10:05 Order name: O2 Sat Monitoring; Complete Time: 10:14 sb4 EC:23 Rate is 65 beats/min. Rhythm is regular, Normal Sinus Rhythm. DC interval is normal at sb4 202 msec. QRS interval is normal at 90 msec. QT interval is normal at 424 msec. No Q waves. T waves are Normal. No ST changes noted. Clinical impression: Normal ECG. Interpreted by me. Reviewed by me. Administered Medications: No medications were administered Disposition Summary: 03/09/23 12:58 Hospitalization Ordered Notes: Hospitalization Status: Observation sb4 Provider: Reyes Chavira sb4 Condition: Fair sb4 Problem: new sb4 Symptoms: are unchanged sb4 Bed/Room Type: Standard sb4 Location: Telemetry/MedSurg (Inpatient)(03/09/23 19:43) eb1 Room Assignment: 222(03/09/23 19:43) eb1 Diagnosis - Chest pain, unspecified sb4 Forms: - Medication Reconciliation Form sb4 - SBAR form sb4 - Leadership Thank You Letter sb4 Addendum: 03/12/2023 10:23 I was immediately available for consultation during this patient's visit. I did not e c2 personally see the patient or guide the patient's care.. Signatures: Dispatcher [employer] Imani Madison RN RN eb1 Wilfredo Rico RN RN ll1 Leslie Brower, PAMookieC PAJanice sb4 Epifanio Denney MD MD ec2 Corrections: (The following items were deleted from the chart) 03/09 17:06 12:58 Telemetry/MedSurg (observation) sb4 ll1 17:06 12:58 sb4 ll1 19:43 17:06 [facility] ER HOLD ll1 eb1 19:43 17:06 [facility] eb1
[2023-03-09] MEDS ORDERED: ACETAMINOPHEN 500 MG TAB PO PRN (13:20)
[2023-03-09] MEDS ORDERED: ASPIRIN 325 MG TAB PO ONE (13:20)
[2023-03-09] MEDS ORDERED: MORPHINE 4 MG/ML SYR IV PRN (13:20)
[2023-03-09] MEDS ORDERED: NITROGLYCERIN 0.4 MG/TAB SL PRN (13:20)
--- NOTE | 2023-03-09 13:47 | P.HP ---
Certification for Inpatient Patient admitted to: Observation With expected LOS: <2 Midnights Patient will require the following post-hospital care: None Practitioner: I am a practitioner with admitting privileges, knowledge of patient current condition, hospital course, and medical plan of care. Services: Services provided to patient in accordance with Admission requirements found in Title 42 Section 412.3 of the Code of Federal Regulations Patient History Date of Service: 03/09/23 Reason for admission: Chest Pain History of Present Illness: Ms. Rell Valencia 62-year-old female with a history of hypertension, diabetes type 2 insulin-dependent, hyperlipidemia presented to the ER with chest pain. Patient reports the pain started around 830 this morning. Chest pain midsternal, pressure in the chest, pain 10 out of 10 at that time. Patient also reports some dizziness in the morning. Patient denies palpitation or shortness of breath. Patient denies abdominal pain, nausea, vomiting. Patient is alert oriented x3, denies chest pain at this time. ED course Blood pressure 131/86, pulse 67, respirations 17, temperature 97.6, pulse ox 97% EKG showing normal sinus rhythm. Initial laboratory reports are nonsignificant Admitting the patient the diagnosis of chest pain. Allergies No Known Allergies Allergy (Verified 07/31/22 10:15) Home medications list reviewed: Yes Home Medications: Atorvastatin Calcium [Lipitor] 20 mg PO DAILY 06/19/22 Biotin 5,000 mcg PO DAILY 06/19/22 Cyclobenzaprine [Flexeril] 10 mg PO TID PRN 06/19/22 Ergocalciferol (Vitamin D2) [Vitamin D 50,000 Unit Cap] 50,000 unit PO EVERY 7TH DAY 06/19/22 Garlic 400 mg PO DAILY 06/19/22 Levocetirizine Dihydrochloride [24Hr Allergy Relief] 5 mg PO DAILY 06/19/22 Levothyroxine [Synthroid] 50 mcg PO [id number] 06/19/22 Losartan Potassium 100 mg PO BEDTIME 06/19/22 Omeprazole [Prilosec] 40 mg PO DAILY 06/19/22 Potassium Citrate [Potassium] 2 cap PO DAILY 06/19/22 glyBURIDE [Glyburide] 2.5 mg PO DAILY 06/19/22 - Past Medical/Surgical History Has patient received pneumonia vaccine in the past: No Diabetic: Yes -: HypertensionDiabetes type 2 -: Diabetes type 2 insulin-dependent -: Hyperlipidemia -: Chronic back pain -: Repair of brain aneurysm 2015, appendectomy, abdominal hysterectomy -: Cholecystectomy -: Hernia repair Psychosocial/ Personal History: Lives with family at home - Family History Father -: Heart disease, Hypertension - Social History Smoking Status: Never smoker Alcohol use: No CD- Drugs: No Review of Systems 10-point ROS is otherwise unremarkable Physical Examination - Physical Exam General: Alert, Oriented x3 HEENT: Atraumatic, Normocephalic, Mucous membr. moist/pink Neck: 2+ carotid pulse no bruit, JVD not distended Respiratory: Clear to auscultation bilaterally, Normal air movement Cardiovascular: No edema, Normal pulses, Normal S1 S2 Capillary refill: <2 Seconds Gastrointestinal: Normal bowel sounds, Soft and benign Musculoskeletal: No swelling, Other (Chronic back pain) Integumentary: No rashes, No breakdown Neurological: Normal gait, Normal speech, Normal affect - Studies Laboratory Data (last 24 hrs) 03/09/23 03/09/23 03/09/23 10:16 10:16 10:16 WBC 7.00 Hgb 13.3 Hct 39.7 Plt Count 276 PT 12.0 INR 1.09 Sodium 140 Potassium 3.6 BUN 22 H Creatinine 0.91 Glucose 122 H Magnesium 2.2 Total Bilirubin 0.5 AST 15 ALT 26 Alkaline Phosphatase 88 Assessment and Plan - Plan Assessment and plan Chest Pain Type 2 diabetes insulin-dependent Chronic back pain, degenerative joint disease of cervical and lumbar spine Hyperlipidemia Assessment and plan Chest Pain Patient presented with chest pain midsternal, pressure in the chest, pain 10 out of 10 at that time No history of any cardiac events in the past Initial cardiac enzymes, BNP and other labs are within normal 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 Admitting the patient to closely monitor Trend troponin, and EKG , started aspirin, nitroglycerin, acetaminophen, morphine as needed for pain, O2 2 L per nasal canula to keep SPO2 above 92% Ordered D-dimer If CAD is confirmed, plan to start beta-alondra, MARII-inhibitor/ARB, statin with 24 hours Type 2 diabetes insulin-dependent Chronic, controlled, patient reported last A1c was below 7 Patient was started on insulin but she quit taking it 2 weeks ago Check A1c in the morning Before meals and at bedtime blood sugar checking with us low-dose sliding scale regular insulin Hypoglycemic precaution Diabetic diet Chronic back pain, degenerative joint disease of cervical and lumbar spine Chronic, uncontrolled. Not able to lay down in the bed using recliner for sleeping for last 3 years patient is not taking any regular analgesics at this time Continue to monitor Hyperlipidemia Chronic, resume home medication Check lipid panel in the Discussed the plan of care with the patient and the daughter CODE STATUS DNR Diet Diabetic diet, n.p.o. postmidnight for stress test in the morning SCDs Lovenox . Discharge Plan: Home Plan to discharge in: 24 Hours - Advance Directives Does patient have a Living Will: No Does patient have a Durable POA for Healthcare: No - Code Status/Comfort Care Code Status Assessed: Yes (DNR) Code Status: Full Code Critical Care: No Time Spent Managing Pts Care (In Minutes): 55 (minutes)
--- NOTE | 2023-03-09 14:02 | P.CNS ---
Date of Consult: 03/09/23 Chief Complaint: Chest Pain History of Present Illness: This is a 62-year-old female with past medical history of hypertension, hyperlipidemia, brain aneurysm status post coiling who is here with dizziness and chest pain. Patient said that she woke up this morning going to the bathr oom felt dizzy came back to her bed when she got up again she got dizzy then she had chest pain so she came to the ER. Chest pain was substernal was intense up to 10 out of 10, then subsided by itself. She could not describe the pain characteristics. Currently she is chest pain-free Allergies No Known Allergies Allergy (Verified 07/31/22 10:15) Home Medications: Atorvastatin Calcium [Lipitor] 20 mg PO DAILY 06/19/22 Biotin 5,000 mcg PO DAILY 06/19/22 Cyclobenzaprine [Flexeril] 10 mg PO TID PRN 06/19/22 Ergocalciferol (Vitamin D2) [Vitamin D 50,000 Unit Cap] 50,000 unit PO EVERY 7TH DAY 06/19/22 Garlic 400 mg PO DAILY 06/19/22 Levocetirizine Dihydrochloride [24Hr Allergy Relief] 5 mg PO DAILY 06/19/22 Levothyroxine [Synthroid] 50 mcg PO [id number] 06/19/22 Losartan Potassium 100 mg PO BEDTIME 06/19/22 Omeprazole [Prilosec] 40 mg PO DAILY 06/19/22 Potassium Citrate [Potassium] 2 cap PO DAILY 06/19/22 glyBURIDE [Glyburide] 2.5 mg PO DAILY 06/19/22 - Past Medical/Surgical History Diabetic: Yes -: HypertensionDiabetes type 2 -: Diabetes type 2 insulin-dependent -: Hyperlipidemia -: Chronic back pain -: Repair of brain aneurysm 2014, appendectomy, abdominal hysterectomy -: Cholecystectomy -: Hernia repair Psychosocial/ Personal History: Lives with family at home - Family History Father Medical History: Heart disease, Hypertension - Social History Smoking Status: Never smoker Alcohol use: No CD- Drugs: No Review of Systems 10-point ROS is otherwise unremarkable Physical Examination General: In no apparent distress, Oriented x3 HEENT: Atraumatic Neck: Supple Respiratory: Clear to auscultation bilaterally Cardiovascular: No edema Gastrointestinal: Normal bowel sounds Integumentary: No rashes Neurological: Normal speech Laboratory Data (last 24 hrs) 03/09/23 03/09/23 03/09/23 10:16 10:16 10:16 WBC 7.00 Hgb 13.3 Hct 39.7 Plt Count 276 PT 12.0 INR 1.09 Sodium 140 Potassium 3.6 BUN 22 H Creatinine 0.91 Glucose 122 H Magnesium 2.2 Total Bilirubin 0.5 AST 15 ALT 26 Alkaline Phosphatase 88 Conclusions/Impression: 1. CP: Atypical, cardiac enzymes are negative first 1, will get another 2 sets, EKG no ischemic changes, will get echocardiogram and if enzymes remains negative we will get stress test tomorrow. 2. HTN: Continue home meds 3. HLD: Continue home meds
[2023-03-09] MEDS: INSULIN REGULAR (HUMAN) 100 UNIT/ML SQ SCH (17:30)
[2023-03-09 22:36] VITALS: BMI 31.6
[2023-03-09] MEDS ORDERED: NA CHLORIDE 0.9% 250 ML ONE (22:36)
[2023-03-10 04:39] LABS: Absolute Lymphocytes (CBC) 1.4 K/uL (0.7-4.9); Hematocrit 36.3 % (36.0-45.0); Lymphocytes % 23.6 % (15.3-44.8); MCV 90.1 fL (80-100); MPV 7.4 fL (7.6-11.3); Platelets 263 thou/uL (152-406); RBC Red Blood Cell Count 4.03 M/uL (3.86-4.86)
[2023-03-10 04:45] LABS: Potassium 3.6 mEq/L (3.5-5.1)
[2023-03-10] MEDS: INSULIN REGULAR (HUMAN) 100 UNIT/ML SQ SCH ×3 (05:53→11:40)
[2023-03-10] MEDS ORDERED: CYCLOBENZAPRINE 10 MG TAB PO PRN (08:41)
[2023-03-10] MEDS ORDERED: CYCLOBENZAPRINE 10 MG TAB PO ONE (08:41)
[2023-03-10] MEDS ORDERED: ASPIRIN EC 81 MG TAB PO SCH (09:00)
[2023-03-10] MEDS ORDERED: ENOXAPARIN 40 MG/0.4 ML SQ SCH (09:00)
[2023-03-10] MEDS ORDERED: REGADENOSON 0.4 MG/5 ML SYR IV ONE (13:40)
[2023-03-10 14:45] VITALS: O2SAT 96
[2023-03-10] MEDS ORDERED: HYDROCODONE/APAP 5/325 MG TAB PO PRN (15:57)
--- NOTE | 2023-03-10 16:04 | RAD REPORT ---
EXAM DESCRIPTION: NM - Rest Stress Cardiac Imaging - 03/10/2023 3:55 pm CLINICAL HISTORY: CP Chest pain. COMPARISON: <Comparisons> TECHNIQUE: The patient was administered approximately 10mCi of Tc 99m Sestamibi prior to resting SPE CT imaging of the heart. The patient was then administered approximately 30 mCi of Tc 99m Sestamibi f ollowing exercise or pharmacologic stress. Multiplanar SPECT images were reviewed. FINDINGS: No stress induced ischemic defect is seen to suggest stress induced ischemia. No fixed def ect is seen to suggest hibernating myocardium or scarred myocardium. The end diastolic volume is 64 ml, the end systolic volume is 16 ml, and the ejection fraction is 75 %. IMPRESSION: No stress induced ischemia.
--- NOTE | 2023-03-10 16:30 | P.DS ---
Admission Date: 03/09/23 Discharge Date: 03/10/23 Disposition: ROUTINE DISCHARGE Discharge Condition: GOOD Reason for Admission: Chest Pain Procedures: Chest x-ray 03/09/2023 FINDINGS: Left lateral base is hazy. Right lung appears clear. Heart is normal size IMPRESSION: Left lateral base is hazy. Most likely this is secondary to overlying soft tissue. If the patient has clinical symptoms to suggest an infiltrate then PA and lateral chest series would be recommended CT head 03/09/2023 FINDINGS: An intracranial bleed is not seen The ventricles are normal in caliber No extra-axial fluid collection is noted. 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 Fluid within the sinuses/ mastoids is not seen. IMPRESSION: No acute intracranial abnormality is seen Pharmacology stress test 03/10/2023 FINDINGS: No stress induced ischemic defect is seen to suggest stress induced ischemia. No fixed defect is seen to suggest hibernating myocardium or scarred myocardium. The end diastolic volume is 64 ml, the end systolic volume is 16 ml, and the ejection fraction is 75 %. IMPRESSION: No stress induced ischemia Brief History of Present Illness: Ms. Rell Valencia 62-year-old female with a history of hypertension, diabetes type 2 insulin-dependent, hyperlipidemia presented to the ER with chest pain. Patient reports the pain started around 830 this morning. Chest pain midsternal, pressure in the chest, pain 10 out of 10 at that time. Patient also reports some dizziness in the morning. Patient denies palpitation or shortness of breath. Patient denies abdominal pain, nausea, vomiting. Patient is alert oriented x3, denies chest pain at this time. ED course Blood pressure 131/86, pulse 67, respirations 17, temperature 97.6, pulse ox 97% EKG showing normal sinus rhythm. Initial laboratory reports are nonsignificant Admitting the patient the diagnosis of chest pain. Hospital Course: Problem list Chest Pain Type 2 diabetes insulin-dependent Chronic back pain, degenerative joint disease of cervical and lumbar spine Hyperlipidemia Patient was admitted to the hospital for chest pain, her troponins trended negative, D-dimer was negative and she was seen by cardiology who recommended stress test. Stress test was performed today which revealed no stress-induced ischemia or other abnormalities. She has been cleared for discharge to follow- up with cardiology and her PCP. She is to continue her other home medications as prescribed. Currently chest pain-free. Vital Signs/Physical Exam: Temp Pulse Resp BP Pulse Ox 97.3 F 59 18 124/73 95 03/10/23 08:00 03/10/23 08:00 03/10/23 08:00 03/10/23 08:00 03/10/23 08:00 General: Alert, In no apparent distress, Oriented x3 HEENT: Atraumatic Neck: Supple Respiratory: Normal air movement Cardiovascular: Regular rate/rhythm, Normal S1 S2 Gastrointestinal: Non-distended Musculoskeletal: No contractures Neurological: Normal speech Laboratory Data at Discharge: WBC 6.00 thou/uL (4.3-10.9) 03/10/23 04:00 Hgb 12.3 g/dL (12.0-15.0) 03/10/23 04:00 Hct 36.3 % (36.0-45.0) 03/10/23 04:00 Plt Count 263 thou/uL (152-406) 03/10/23 04:00 PT 12.0 SECONDS (9.5-12.5) 03/09/23 10:16 INR 1.09 03/09/23 10:16 Sodium 143 mEq/L (136-145) 03/10/23 04:00 Potassium 3.6 mEq/L (3.5-5.1) 03/10/23 04:00 BUN 19 mg/dL (7-18) H 03/10/23 04:00 Creatinine 0.79 mg/dL (0.55-1.02) 03/10/23 04:00 Glucose 147 mg/dL (74-106) H 03/10/23 04:00 Magnesium 2.2 mg/dL (1.6-2.4) 03/09/23 10:16 Total Bilirubin 0.5 mg/dL (0.2-1.0) 03/09/23 10:16 AST 15 U/L (15-37) 03/09/23 10:16 ALT 26 U/L (13-56) 03/09/23 10:16 Alkaline Phosphatase 88 U/L (45-117) 03/09/23 10:16 Triglycerides 144 mg/dL (<150) 03/09/23 17:30 Cholesterol 91 mg/dL (<200) 03/09/23 17:30 HDL Cholesterol 34 mg/dL (40-60) L 03/09/23 17:30 Cholesterol/HDL Ratio 2.68 03/09/23 17:30 Home Medications: Atorvastatin Calcium [Lipitor] 20 mg PO DAILY 06/19/22 Cyclobenzaprine [Flexeril] 10 mg PO TID PRN 06/19/22 Levothyroxine [Synthroid] 50 mcg PO [id number] 06/19/22 Losartan Potassium 100 mg PO BEDTIME 06/19/22 Omeprazole [Prilosec] 40 mg PO DAILY 06/19/22 Amlodipine [Norvasc*] 1 tab PO DAILY 03/09/23 Aspirin 1 tab PO DAILY 03/09/23 Magnesium Oxide 1 tab PO DAILY 03/09/23 hydroCHLOROthiazide [Hydrochlorothiazide] 1 tab PO DAILY 03/09/23 Physician Discharge Instructions: Patient was admitted to the hospital for chest pain, her troponins trended negative, D-dimer was negative and she was seen by cardiology who recommended stress test. Stress test was performed today which revealed no stress-induced ischemia or other abnormalities. She has been cleared for discharge to follow- up with cardiology and her PCP. She is to continue her other home medications as prescribed. Currently chest pain-free. Diet: ADA Activity: Ad keshav Followup: NONE,NONE [Primary Care Provider] - 1 Week Ace Ray MD [ACTIVE - CAN ADMIT] - 1 Week Time spent managing pt's care (in minutes): 35
[2023-03-10] MEDS ORDERED: HYDROCODONE/APAP 5/325 MG TAB ONE (16:39)
[2023-03-10 18:00] VITALS: BP 175/63; TEMP 98.1
--- NOTE | 2023-03-11 07:54 | EKG ---
Test Date: 2023-03-09 Test Time: 10:04:52 Veneer Lathe Operator: GEORGE MEASUREMENT RESULTS: Intervals: Rate: 65 HI: 202 QRSD: 90 QT: 424 QTc: 440 [place]: P: 34 HI: 202 QRS: 23 T: 50 INTERPRETIVE STATEMENTS: Normal sinus rhythm Normal ECG Compared to ECG 07/31/2022 10:24:17 No significant changes Electronically Signed On 03-11-23 07:51:16 CDT by Ace Ray
--- NOTE | 2023-03-11 08:13 | TREADPHA ---
DX: DIZZINESS Date of Study: 03/10/2023 Ht: 5' 1 " Wt: 167 lb 1.6 oz Consulting Physician: ALTHEA MEDICATIONS: ASPIRIN, LOVENOX, NOVOLIN-R, NITROSTAT HISTORY: 62 YEAR OLD FEMALE WITH COMPLAINTS OF DIZZINESS AND CHEST PAIN. HISTORY OF HYPERTENSION, PRE DIABETIC, BRAIN ANUERYSM PHYSICIAL EXAMINATION: RESTING B.P.: 133/80 RESTING H.R.: 65 RESTING EKG: SINUS RHYTHM, WITHIN NORMAL LIMITS PROTOCOL: PHARMACOLOGIC EXERCISE TIME: 3:30 B.P. AT [place] STRESS: 153/78 IMPRESSION: LEXISCAN INJECTED. CARDIOLITE INJECTED. SEE NUCLEAR MEDICINE REPORT. NO SUPRAVENTRICULAR TACHYCARDIA, VENTRICULAR TACHYCARDIA, PREMATURE ATRIAL COMPLEXES. PREMATURE ATRIAL COMPLEXES NOTED. PATIENT DEINES CHEST PAIN. NO ELECTROCARDIOGRAM CHANGES WITH LEXISCAN.
--- NOTE | 2023-03-11 08:30 | ECHO ---
HEIGHT: 5 ft 1 in WEIGHT: 167 lb 1.6 oz DATE OF STUDY: 03/10/[address]: Kale Gamboa NP 2-DIMENSIONAL: YES M.MODE: YES DOPPLER: YES COLOR FLOW: YES TDS: PORTABLE: YES DEFINITY: BUBBLE STUDY: DIAGNOSIS: CHEST PAIN CARDIAC HISTORY: CATHERIZATION: SURGERY: PROSTHETIC VALVE: PACEMAKER: MEASUREMENTS (cm) DIASTOLIC (NORMALS) SYSTOLIC (NORMALS) IVSd 1.1 (0.6-1.2) LA Diam 3.3 (1.9-4.0) LVEF 74% LVIDd 3.7 (3.5-5.7) LVIDs 2.1 (2.0-3.5) %FS 43% LVPWd 1.0 (0.6-1.2) Ao Diam 3.3 (2.0-3.7) 2 DIMENSIONAL ASSESSMENT: RIGHT ATRIUM: NORMAL LEFT ATRIUM: NORMAL RIGHT VENTRICLE: NORMAL LEFT VENTRICLE: NORMAL TRICUSPID VALVE: MILD TRICUSPID REGURGITATION MITRAL VALVE: MILD MITRAL REGURGITATION PULMONIC VALVE: NORMAL AORTIC VALVE: NORMAL PERICARDIAL EFFUSION: NONE AORTIC ROOT: NORMAL LEFT VENTRICULAR WALL MOTION: NORMAL DOPPLER/COLOR FLOW: SEE BELOW COMMENTS: 1. NORMAL LEFT VENTRICULAR EJECTION FRACTION 60-65% WITH NORMAL WALL MOTION 2. GRADE I DIASTOLIC DYSFUNCTION 3. MILD TRICUSPID REGURGITATION 4. MILD MITRAL REGURGITATION TECHNOLOGIST: DAYSI DOVER
== END 2023-03-10 17:30 | disposition home or self-care (01) ==
LOC: ER 09:53 → ERHOLD 17:06 → INTOOBSV 17:06 → 2ND 21:44
PROVIDERS: ADMIT Hospitalist; ATTEND Hospitalist
DX: R07.9 Chest pain, unspecified (principal); I10 Essential (primary) hypertension; E11.8 Type 2 diabetes mellitus with unspecified complications; E78.5 Hyperlipidemia, unspecified; M54.9 Dorsalgia, unspecified; M47.892 Other spondylosis, cervical region; M47.896 Other spondylosis, lumbar region; R42 Dizziness and giddiness; Z90.49 Acquired absence of other specified parts of digestive tract; Z79.4 Long term (current) use of insulin; Z90.710 Acquired absence of both cervix and uterus
CPT/HCPCS: 36415; 70450; 71045; 78452; 80048; 80061; 80076; 82947; 83735; 83880; 84484; 85025; 85379; 85610; 93005; 93017; 93306; 99285; A9500; G0378; J1650; J2785; J7050

== ENCOUNTER → 2023-05-09 | Emergency (ER) | payer OTHER ==
[~2023-05-09] MED LIST: FAMOTIDINE 20 MG/2 ML VIAL IV ONE; KETOROLAC 30 MG/ML INJ ONE; NA CHLORIDE 0.9% 1,000 ML ONE; ONDANSETRON 4 MG/2 ML VIAL ONE
[2023-05-09 22:36] LABS: Absolute Lymphocytes (CBC) 0.7 K/uL (0.7-4.9); Hematocrit 42.5 % (36.0-45.0); Lymphocytes % 15.2 % (15.3-44.8); MCV 90.2 fL (80-100); MPV 7.3 fL (7.6-11.3); Platelets 234 thou/uL (152-406)
[2023-05-09 22:53] LABS: Albumin 3.7 g/dL (3.4-5.0); Bilirubin Total 0.6 mg/dL (0.2-1.0); Potassium 3.5 mEq/L (3.5-5.1); Protein, Total 7.6 g/dL (6.4-8.2)
--- NOTE | 2023-05-10 01:53 | ER ---
Nurse's Notes [facility] Name: Saroj Zacarias Age: 63 yrs Sex: Female : 1960 Arrival Date: 05/09/2023 Time: 19:13 Bed 8 Private MD: Diagnosis: Abdominal pain, unspecified Presentation: 05/09 19:27 Chief complaint: Patient states: pt reports RUQ pain for 3 months that got worse at km8 0100 today; denies n/v/d or constipation; pt has hx of diverticulitis and fatty liver. Coronavirus screen: Client denies travel out of the [place] in the last 14 days. Ebola Screen: No symptoms or risks identified at this time. Initial Sepsis Screen: Does the patient meet any 2 criteria? No. Patient's initial sepsis screen is negative. Does the patient have a suspected source of infection? No. Patient's initial sepsis screen is negative. Risk Assessment: Do you want to hurt yourself or someone else? Patient reports no desire to harm self or others. Onset of symptoms was May 09, 2023 at 01:00. 19:27 Method Of Arrival: Ambulatory [facility] 19:27 Acuity: LILLIAM 3 km8 Triage Assessment: 19:30 General: Appears in no apparent distress. uncomfortable, Behavior is calm, cooperative, km8 appropriate for age. Pain: Complains of pain in right upper quadrant Pain currently is 8 out of 10 on a pain scale. Quality of pain is described as pressure. EENT: No signs and/or symptoms were reported regarding the EENT system. Neuro: Level of Consciousness is awake, alert, obeys commands, Oriented to person, place, time, situation. Cardiovascular: Denies chest pain, shortness of breath. Respiratory: Airway is patent Respiratory effort is even, unlabored, Respiratory pattern is regular, symmetrical. GI: Abdomen is non-distended, Abdomen is tender to palpation in right upper quadrant Reports upper abdominal pain, Patient currently denies constipation, diarrhea, nausea, vomiting. : No signs and/or symptoms were reported regarding the genitourinary system. Derm: No signs and/or symptoms reported regarding the dermatologic system. Skin is intact, Skin is dry, Skin is pink, warm \T\ dry. normal, Skin temperature is warm. Musculoskeletal: No signs and/or symptoms reported regarding the musculoskeletal system. Range of motion: intact in all extremities. Historical: - Allergies: 19:30 No Known Allergies; km8 - PMHx: 19:30 Hypercholesterolemia; Hypertensive disorder; Pre-Diabetes; km8 - PSHx: 19:30 Appendectomy; brain aneurysm SX; Cholecystectomy; hernia repair; Total abdominal km8 hysterectomy; - Immunization history:: Client reports having NOT received the Covid vaccine. Flu vaccine is not up to date. - Social history:: Smoking status: Patient/guardian denies using tobacco, the patient reports quitting approximately 8 years ago. Screenin:02 [facility] ED Fall Risk Assessment (Adult) History of falling in the last 3 months, jw7 including since admission No falls in past 3 months (0 pts) Score/Fall Risk Level 0 - 2 = Low Risk Oriented to surroundings, Maintained a safe environment, Educated pt \T\ family on fall prevention, incl call for assistance when getting out of bed. Abuse screen: Denies threats or abuse. Denies injuries from another. Nutritional screening: No deficits noted. Tuberculosis screening: No symptoms or risk factors identified. Assessment: 21:00 General: Appears in no apparent distress. uncomfortable, Behavior is calm, cooperative. jw7 Pain: Complains of pain in right upper quadrant Pain does not radiate. Pain currently is 8 out of 10 on a pain scale. Quality of pain is described as aching, Pain began 2-3 days ago. Is continuous. Neuro: [place] Agitation-Sedation Scale (RASS): 0 - Alert and Calm Level of Consciousness is awake, alert, obeys commands, Oriented to person, place, time, situation. 21:00 Cardiovascular: Capillary refill < 3 seconds Clubbing of nail beds is absent JVD is jw7 absent Patient's skin is warm and dry. Respiratory: Airway is patent Trachea midline Respiratory effort is even, unlabored, Respiratory pattern is regular, symmetrical. GI: Abdomen is round non-distended, Bowel sounds present X 4 quads. : No deficits noted. No signs and/or symptoms were reported regarding the genitourinary system. EENT: No deficits noted. No signs and/or symptoms were reported regarding the EENT system. Derm: No deficits noted. No signs and/or symptoms reported regarding the dermatologic system. Musculoskeletal: No deficits noted. No signs and/or symptoms reported regarding the musculoskeletal system. 21:40 Reassessment: Patient appears in no apparent distress at this time. No changes from jw7 previously documented assessment. Patient and/or family updated on plan of care and expected duration. Pain level reassessed. Patient is alert, oriented x 3, equal unlabored respirations, skin warm/dry/pink. 22:35 Reassessment: Patient appears in no apparent distress at this time. Patient and/or jw7 family updated on plan of care and expected duration. Pain level reassessed. Patient is alert, oriented x 3, equal unlabored respirations, skin warm/dry/pink. 23:30 Reassessment: Patient appears in no apparent distress at this time. No changes from jw7 previously documented assessment. Patient and/or family updated on plan of care and expected duration. Pain level reassessed. Patient is alert, oriented x 3, equal unlabored respirations, skin warm/dry/pink. 05/10 00:36 Reassessment: Patient and/or family updated on plan of care and expected duration. Pain vc1 level reassessed. Patient is alert, oriented x 3, equal unlabored respirations, skin warm/dry/pink. Patient states feeling better. Patient states symptoms have improved. 02:10 Reassessment: No changes from previously documented assessment. Patient and/or family vc1 updated on plan of care and expected duration. Pain level reassessed. Patient is alert, oriented x 3, equal unlabored respirations, skin warm/dry/pink. Vital Signs: 05/09 19:27 BP 147 / 86; Pulse 89; Resp 18; Temp 98.4(O); Pulse Ox 99% on R/A; Weight 68.04 kg (R); km8 Height 5 ft. 1 in. ; Pain 8/10; 22:00 BP 134 / 77; Pulse 79; Resp 23 S; Pulse Ox 95% on R/A; jw7 23:00 BP 132 / 75; Pulse 81; Resp 21 S; Pulse Ox 95% on R/A; jw7 05/10 00:36 BP 126 / 74; Pulse 70; Resp 18; Pulse Ox 94% ; vc1 01:00 BP 131 / 79; Pulse 70; Resp 18; Pulse Ox 94% ; vc1 02:00 BP 126 / 65; Pulse 68; Resp 17; Pulse Ox 93% ; vc1 05/09 19:27 Body Mass Index 28.34 (68.04 kg, 154.94 cm) [facility] 05/09 19:27 Pain Scale: Adult [facility] ED Course: 05/09 19:16 Patient arrived in ED. ag3 19:18 Stefania Ashley FNP-C is PHCP. kb 19:18 Jovon Spangler MD is Attending Physician. kb 19:29 Triage completed. km8 19:30 Arm band placed on left wrist. km8 21:18 Radiology exam delayed due to lab results not completed at this time. (BUN/Creatinine) eh4 IV insertion attempt and/or patient not having appropriate IV at this time. 21:54 Juan Pablo Damian, RN is Primary Nurse. bp 22:02 Patient has correct armband on for positive identification. Placed in gown. Bed in low jw7 position. Call light in reach. 22:26 Initial lab(s) drawn, by me, sent to lab. Inserted saline lock: 20 gauge in right jw7 forearm, using aseptic technique. Blood collected. 22:27 CBC with Diff Sent. jw7 22:27 CMP Sent. jw7 22:27 Lipase Sent. jw7 23:23 CT Abd/Pelvis - IV Contrast Only In Process Unspecified. EDMS 05/10 00:07 Primary Nurse role handed off by Juan Pablo Damian RN mb4 00:42 PHCP role handed off by Stefania Ashley FNP-C cp 00:42 Tavon Howard PA is PHCP. cp 01:52 Gerard Swenson MD is Referral Physician. cp 02:10 Sharla Valencia, GUANAKO is Primary Nurse. vc1 02:11 No provider procedures requiring assistance completed. IV discontinued, intact, vc1 bleeding controlled, No redness/swelling at site. Pressure dressing applied. Administered Medications: 05/09 22:27 Drug: NS 0.9% IV 1000 ml IV at 1 bolus Per protocol; 1000 mL bolus Route: IV; Rate: 1 jw7 bolus; Site: right forearm; :27 Drug: Famotidine IVP 20 mg IVP once; dilute with 10 mL 0.9% NaCl; give over 2 minutes jw7 Route: IVP; Site: right forearm; 05/10 00:36 Follow up: Response: No adverse reaction; Marked relief of symptoms; Pain is decreased vc1 05/09 22:27 Drug: TORadol - Ketorolac IVP 15 mg IVP once Route: IVP; Site: right forearm; jw7 05/10 00:36 Follow up: Response: No adverse reaction; Marked relief of symptoms; Pain is decreased vc1 05/09 22:27 Drug: Ondansetron IVP 4 mg IVP once; over 2 minutes Route: IVP; Site: right forearm; jw7 05/10 00:36 Follow up: Response: No adverse reaction; Marked relief of symptoms vc1 Medication: 02:22 VIS not applicable for this client. vc1 Outcome: 01:52 Discharge ordered by . cp 02:21 Discharged to home ambulatory, with family, vc1 02:21 Condition: good 02:21 Discharge instructions given to patient, Instructed on discharge instructions, follow up and referral plans. medication usage, Demonstrated understanding of instructions, follow-up care, medications, Prescriptions given X 2, 02:22 Patient left the ED. vc1 Signatures: Dispatcher [employer] EDMS Stefania Ashley, DALILA-C CONTINUOUS PROCESS TANNER ROTARY DRUM-CkTavon Bennett PA PA cp Peltier, Brian, GUANAKO MUJICA bp Alison Lopez mb4 Candice Qureshi ag3 Sharla Valencia RN RN vc1 Corry Singh RN RN jw7 Mary Araujo 4 Megan Danielle, RN RN km8 Corrections: (The following items were deleted from the chart) 00:58 05/09 19:45 General: see triage assessment. jw7 jw7 05/10 00:58 05/09 20:30 Reassessment: Patient appears in no apparent distress at this time. No jw7 changes from previously documented assessment. Patient and/or family updated on plan of care and expected duration. Pain level reassessed. Patient is alert, oriented x 3, equal unlabored respirations, skin warm/dry/pink. jw7
--- NOTE | 2023-05-10 01:54 | EDPHYS ---
Physician Documentation [facility] Name: Saroj Zacarias Age: 63 yrs Sex: Female : 1960 Arrival Date: 05/09/2023 Time: 19:13 Bed 8 Private MD: ED Physician Jovon Spangler HPI: 05/10 00:16 This 63 yrs old Female presents to ER via Ambulatory with complaints of Abdominal Pain. kb 00:16 pt presents for RUQ pain that started 3 months ago and has become persistent since last kb night. denies n/v/d, fever, chills. . Historical: - Allergies: 05/09 19:30 No Known Allergies; km8 - PMHx: 19:30 Hypercholesterolemia; Hypertensive disorder; Pre-Diabetes; km8 - PSHx: 19:30 Appendectomy; brain aneurysm SX; Cholecystectomy; hernia repair; Total abdominal km8 hysterectomy; - Immunization history:: Client reports having NOT received the Covid vaccine. Flu vaccine is not up to date. - Social history:: Smoking status: Patient/guardian denies using tobacco, the patient reports quitting approximately 8 years ago. ROS: 05/10 00:16 Constitutional: Negative for fever, chills, and weight loss, kb Abdomen/GI: Positive for abdominal pain, Negative for nausea, vomiting, and diarrhea, All other systems are negative, Exam: 00:16 Constitutional: This is a well developed, well nourished patient who is awake, alert, kb and in no acute distress. Head/Face: Normocephalic, atraumatic. ENT: Moist Mucous membranes Cardiovascular: Regular rate Respiratory: Respirations even and unlabored. No increased work of breathing. Talking in full sentences Skin: Warm, dry with normal turgor. Normal color. MS/ Extremity: Pulses equal, no cyanosis. Neurovascular intact. Full, normal range of motion. Neuro: Awake and alert, GCS 15, oriented to person, place, time, and situation. Moves all extremities. Normal gait. 00:16 Abdomen/GI: Inspection: abdomen appears normal, Bowel sounds: normal, Palpation: soft, in all quadrants, mild abdominal tenderness, in the right upper quadrant, Vital Signs: 05/09 19:27 BP 147 / 86; Pulse 89; Resp 18; Temp 98.4(O); Pulse Ox 99% on R/A; Weight 68.04 kg (R); km8 Height 5 ft. 1 in. ; Pain 8/10; 22:00 BP 134 / 77; Pulse 79; Resp 23 S; Pulse Ox 95% on R/A; jw7 23:00 BP 132 / 75; Pulse 81; Resp 21 S; Pulse Ox 95% on R/A; jw7 05/10 00:36 BP 126 / 74; Pulse 70; Resp 18; Pulse Ox 94% ; vc1 01:00 BP 131 / 79; Pulse 70; Resp 18; Pulse Ox 94% ; vc1 02:00 BP 126 / 65; Pulse 68; Resp 17; Pulse Ox 93% ; vc1 05/09 19:27 Body Mass Index 28.34 (68.04 kg, 154.94 cm) 8 05/09 19:27 Pain Scale: Adult [facility] MDM: 05/09 19:18 Patient medically screened. kb 05/10 00:17 Differential diagnosis: diverticulitis, gastritis, non-specific abd pain, pancreatitis. kb Data reviewed: vital signs, nurses notes. 00:42 Transition of care: After a detail discussion of the patient's case, care is cp transferred to Tavon MANDEL. 01:50 I considered the following discharge prescriptions or medication management in the emergency department Medications were administered in the Emergency Department. See MAR. 01:50 Care significantly affected by the following chronic conditions: Diabetes, cp Hypertension. Counseling: I had a detailed discussion with the patient and/or guardian regarding the historical points, exam findings, and any diagnostic results supporting the discharge/admit diagnosis, lab results, radiology results, the need for outpatient follow up, for definitive care, a general office dispatcher, to return to the emergency department if symptoms worsen or persist or if there are any questions or concerns that arise at home. Response to treatment: the patient's symptoms have mildly improved after treatment, and as a result, I will discharge patient. Special discussion: Based on the patient's Hx, exam, and Dx evaluation, there is no indication for emergent surgery or inpatient Tx. It is understood by the patient/guardian that if the Sx's persist or worsen they need to return immediately for re-evaluation. 05/09 19:32 Order name: CBC with Diff; Complete Time: 22:44 kb 05/09 19:32 Order name: CMP; Complete Time: 23:07 kb 05/09 19:32 Order name: Lipase; Complete Time: 23:07 kb 05/09 19:32 Order name: CT Abd/Pelvis - IV Contrast Only kb 05/09 19:32 Order name: IV Saline Lock; Complete Time: 22:27 kb 05/09 19:32 Order name: Labs collected and sent; Complete Time: 22:27 kb Administered Medications: 05/09 22:27 Drug: NS 0.9% IV 1000 ml IV at 1 bolus Per protocol; 1000 mL bolus Route: IV; Rate: 1 jw7 bolus; Site: right forearm; 22:27 Drug: Famotidine IVP 20 mg IVP once; dilute with 10 mL 0.9% NaCl; give over 2 minutes jw7 Route: IVP; Site: right forearm; 05/10 00:36 Follow up: Response: No adverse reaction; Marked relief of symptoms; Pain is decreased vc1 05/09 22:27 Drug: TORadol - Ketorolac IVP 15 mg IVP once Route: IVP; Site: right forearm; jw7 05/10 00:36 Follow up: Response: No adverse reaction; Marked relief of symptoms; Pain is decreased vc1 05/09 22:27 Drug: Ondansetron IVP 4 mg IVP once; over 2 minutes Route: IVP; Site: right forearm; jw7 05/10 00:36 Follow up: Response: No adverse reaction; Marked relief of symptoms vc1 Disposition Summary: 05/10/23 01:52 Discharge Ordered Notes: Location: Home cp Problem: an ongoing problem cp Symptoms: have improved cp Condition: Stable cp Diagnosis - Abdominal pain, unspecified cp Followup: cp - With: Gerard Swenson MD - When: 5 - 6 days - Reason: Recheck today's complaints Discharge Instructions: - Discharge Summary Sheet cp - Abdominal Pain, Adult cp Forms: - Medication Reconciliation Form cp - Thank You Letter cp - Antibiotic Education cp - Prescription Opioid Use cp - Patient Portal Instructions cp - Leadership Thank You Letter cp Prescriptions: - Zofran 4 mg Oral Tablet - take 1 tablet ORAL route every 12 hours As needed; 20 tablet; Refills: 0, cp Product Selection Permitted - dicyclomine 20 mg Oral tablet - take 1 tablet ORAL route 4 times per day; 30 tablet; Refills: 0, Product cp Selection Permitted Signatures: Dispatcher [employer] Stefania Sales, SUPERVISOR RESPIRATORY-C SUPERVISOR RESPIRATORY-Ckb Tavon Howard PA PA cp Waits, Jodi, RN RN jw7 Megan Danielle, RN RN km8 Sharla Valencia RN vc1 Corrections: (The following items were deleted from the chart) 00:42 00:17 Counseling: I had a detailed discussion with the patient and/or guardian vimal regarding the historical points, exam findings, and any diagnostic results supporting the discharge/admit diagnosis, lab results, radiology results, the need for outpatient follow up, a general office dispatcher, to return to the emergency department if symptoms worsen or persist or if there are any questions or concerns that arise at home, vimal 22:44 00:42 Transition of care: After a detail discussion of the patient's case, care is cp transferred to Tavon celis
[2023-05-10 05:11] VITALS: TEMP 98.4
[2023-05-10 05:34] VITALS: BP 126/65; O2SAT 93
--- NOTE | 2023-05-10 20:44 | RAD REPORT ---
EXAM DESCRIPTION: CT - Abdomen Pelvis W Contrast - 05/10/2023 7:35 am CLINICAL HISTORY: RUQ PAIN TECHNIQUE: Axial computed tomography images of the abdomen and pelvis with intravenous contrast. S agittal and coronal reformatted images were created and reviewed. This CT exam was performed using one or more of the following dose reduction techniques: automated exposure control, adjustment of t he mA and/or kV according to patient size, and/or use of iterative reconstruction technique. COMPARISON: CT Abdomen Pelvis dated 07/16/2022 FINDINGS: Lung bases: Bibasilar subsegmental atelectasis/pleural parenchymal scar. ABDOMEN: Liver: The liver is mildly diffusely low in density compatible with steatosis. Gallbladder and bile ducts: Prior cholecystectomy. Biliary dilatation progressed from the prior. Th e common duct measures 13 mm in maximum diameter (previously 9 mm). Pancreas: Unremarkable. No mass. No ductal dilation. Spleen: Unremarkable. No splenomegaly. Adrenals: Unremarkable. No mass. Kidneys and ureters: Unremarkable. No solid mass. No hydronephrosis. Stomach and bowel: Moderate stool. No bowel obstruction. Colonic diverticula without adjacent infla mmatory change. No mucosal thickening. PELVIS: Appendix: The appendix is not definitively visualized. No findings to suggest acute appendicitis. Bladder: Unremarkable. No mass. Reproductive: There has been a hysterectomy. No adnexal cysts or masses are identified. ABDOMEN and PELVIS: Intraperitoneal space: Unremarkable. No free air. No significant fluid collection. Bones/joints: Multilevel spondylosis. T9 intraosseous hemangioma. No acute fracture. No disloca tion. Soft tissues: Interval ventral hernia repair. Prior right inguinal hernia repair. Vasculature: Unremarkable. No abdominal aortic aneurysm. Lymph nodes: Unremarkable. No enlarged lymph nodes. IMPRESSION: 1. No acute process identified within the abdomen and pelvis. 2. Other findings as above. Electronically signed by: Nini Farah MD 05/10/2023 12:50 AM LINE UP MACHINE OPERATOR Due to temporary technical issues with the PACS/Fluency reporting system, reports are being signed by the in house radiologists without review as a courtesy to insure prompt reporting. The interpreting radiologist is fully responsible for the content of the report.
== END ==
LOC: ER 19:13
DX: R10.11 Right upper quadrant pain (principal); Z28.310 Unvaccinated for COVID-19
CPT/HCPCS: 85025; 36415; 83690; 80053; 74177; 96375; 96374; 99284; Q9967; J2405; J7030

== ENCOUNTER 2023-12-27 21:31 | Emergency (ER) | payer OTHER ==
[2023-12-27] MEDS ORDERED: KETOROLAC 30 MG/ML INJ ONE (23:10)
[2023-12-27] MEDS ORDERED: METHOCARBAMOL 1,000 MG/10 ML VIAL ONE (23:10)
[2023-12-27] MEDS ORDERED: NA CHLORIDE 0.9% 100 ML ONE (23:10)
[2023-12-27 23:30] LABS: Absolute Eosinophils 0.4 K/uL (0-0.5); Absolute Lymphocytes (CBC) 1.4 K/uL (0.7-4.9); Absolute Monocytes 0.5 K/uL (0.1-1.3); Absolute Neutrophil 4.7 K/uL (1.8-8.0); Basophils % 0.6 % (0-1.3); Eosinophils % 5.4 % (0-4.4); Hematocrit 43.3 % (36.0-45.0); Hemoglobin 14.1 g/dL (12.0-15.0); Lymphocytes % 19.6 % (15.3-44.8); MCH 30.3 pg (27.0-35.0); MCHC 32.6 g/dL (32.0-36.0); MCV 92.9 fL (80-100); MPV 7.5 fL (7.6-11.3); Monocytes % 7.7 % (3.3-12.3); Neutrophils % 66.7 % (41.7-73.7); Platelets 247 thou/uL (152-406); RBC Red Blood Cell Count 4.66 M/uL (3.86-4.86); Red Cell Distribution Width 13.7 % (12.1-15.2)
[2023-12-27 23:42] LABS: Specific Gravity 1.022 (1.005-1.030); Sqamous Epithelial <5 /HPF (None Seen); Urine Bacteria None Seen /HPF (<20); Urine Bilirubin NEGATIVE (Negative); Urine Blood Trace (Negative); Urine Clarity Clear (Clear); Urine Color Light-Yellow (Yellow); Urine Culture Reflex Order NOT NEEDED; Urine Glucose 4+ (Over) (Negative); Urine Ketones NEGATIVE (Negative); Urine Microscopic Reflex YN ORDER UMIC; Urine Nitrite NEGATIVE (Negative); Urine Protein NEGATIVE (Negative); Urine Urobilinogen Normal (Normal); Urine WBC <5 /HPF (<5); Urine pH 6.5 (5.0-7.0)
[2023-12-27 23:44] LABS: Albumin 3.2 g/dL (3.4-5.0); Anion Gap 10.7 mEq/L (5.0-15.0); Bilirubin Total 0.2 mg/dL (0.2-1.0); Globulin 3.3 g/dL (2.3-3.5); Potassium 3.7 mEq/L (3.5-5.1); Protein, Total 6.5 g/dL (6.4-8.2)
[2023-12-27 23:53] LABS: SARS-CoV-2 Antigen CONTROL BLUE LINE VIS/BG OK; SARS-CoV-2 Antigen Rapid Res Negative (Negative)
--- NOTE | 2023-12-28 00:26 | ER ---
Nurse's Notes [facility] Name: Saroj Zacarias Age: 63 yrs Sex: Female : 1960 Arrival Date: 12/27/2023 Time: 21:31 Bed 19 Private MD: Diagnosis: Dorsalgia, unspecified;Shortness of breath Presentation: 12/26 22:31 Chief complaint: Patient states: back pain starting 3 days ago but worsening. Also tm6 experiencing n/v and SOB. Coronavirus screen: Vaccine status: Patient reports being unvaccinated. Ebola Screen: Patient negative for fever greater than or equal to 101.5 degrees Fahrenheit, and additional compatible Ebola Virus Disease symptoms Patient denies exposure to infectious person. Patient denies travel to an Ebola-affected area in the 21 days before illness onset. No symptoms or risks identified at this time. Initial Sepsis Screen: Does the patient meet any 2 criteria? No. Patient's initial sepsis screen is negative. Does the patient have a suspected source of infection? No. Patient's initial sepsis screen is negative. Risk Assessment: Do you want to hurt yourself or someone else? Patient reports no desire to harm self or others. Onset of symptoms was December 24, 2023. 22:31 Method Of Arrival: Ambulatory tm6 22:31 Acuity: LILLIAM 3 tm6 Triage Assessment: 22:32 General: Appears in no apparent distress. Behavior is calm, cooperative. Pain: tm6 Complains of pain in back Pain does not radiate. Pain currently is 7 out of 10 on a pain scale. Pain began 2-3 days ago. EENT: No signs and/or symptoms were reported regarding the EENT system. Neuro: No deficits noted. Level of Consciousness is awake, alert, obeys commands, Oriented to person, place, time, situation. Cardiovascular: Reports shortness of breath, Patient's skin is warm and dry. Respiratory: Reports shortness of breath at rest on exertion Airway is patent Respiratory effort is even, unlabored, Respiratory pattern is regular, symmetrical. GI: Abdomen is round non-distended, Reports nausea, vomiting. : No signs and/or symptoms were reported regarding the genitourinary system. Derm: No signs and/or symptoms reported regarding the dermatologic system. Musculoskeletal: Range of motion: intact in all extremities, Reports pain in back since x3 days. Historical: - Allergies: 22:32 Trulicity; tm6 - PMHx: 22:32 Hypercholesterolemia; Hypertensive disorder; Diabetes mellitus; Diverticulitis; tm6 - PSHx: 22:32 Appendectomy; brain aneurysm SX; Cholecystectomy; hernia repair; Total abdominal tm6 hysterectomy; - Immunization history:: Client reports having NOT received the Covid vaccine. - Infectious Disease History:: Denies. - Social history:: Smoking status: Patient denies any tobacco usage or history of. Patient/guardian denies using alcohol, street drugs. Screenin:35 [facility] ED Fall Risk Assessment (Adult) History of falling in the last 3 months, tm6 including since admission No falls in past 3 months (0 pts) Confusion or Disorientation No (0 pts) Intoxicated or Sedated No (0 pts) Impaired Gait No (0 pts) Mobility Assist Device Used No (0 pt) Altered Elimination No (0 pt) Score/Fall Risk Level 0 - 2 = Low Risk Oriented to surroundings, Maintained a safe environment, Educated pt \T\ family on fall prevention, incl call for assistance when getting out of bed. Abuse screen: Denies threats or abuse. Denies injuries from another. Nutritional screening: No deficits noted. Tuberculosis screening: No symptoms or risk factors identified. Assessment: 22:35 Reassessment: see triage assessment. Neuro: Level of Consciousness is awake, alert, tm6 obeys commands, Oriented to person, place, time, situation. 23:21 Reassessment: Patient and/or family updated on plan of care and expected duration. Pain tm6 level reassessed. Patient is alert, oriented x 3, equal unlabored respirations, skin warm/dry/pink. 12/27 00:37 Reassessment: Patient appears in no apparent distress at this time. Patient and/or tm6 family updated on plan of care and expected duration. Pain level reassessed. Patient is alert, oriented x 3, equal unlabored respirations, skin warm/dry/pink. Vital Signs: 12/26 22:31 BP 141 / 76; Pulse 64; Resp 19; Temp 98.4(O); Pulse Ox 96% on R/A; Weight 67.13 kg; tm6 Height 5 ft. 1 in. ; Pain 7/10; 23:20 BP 133 / 79; Pulse 65; Pulse Ox 95% on R/A; Pain 7/10; tm6 23:49 Pain 3/10; tm6 12/27 00:36 BP 140 / 83; Pulse 62; Resp 19; Temp 98.4; Pulse Ox 96% on R/A; Pain 0/10; tm6 12/26 22:31 Body Mass Index 27.96 (67.13 kg, 154.94 cm) tm6 12/26 22:31 Pain Scale: Adult tm6 23:20 Pain Scale: Adult tm6 23:49 Pain Scale: Adult tm6 12/27 00:36 Pain Scale: Adult tm6 ED Course: 12/26 21:35 Patient arrived in ED. ra3 21:39 Tavon Howard PA is PHCP. cp 21:39 Epifanio Denney MD is Attending Physician. cp 22:15 Chong Dominguez, GUANAKO is Primary Nurse. tm6 22:32 Triage completed. tm6 22:32 Arm band placed on right wrist. tm6 22:35 Patient has correct armband on for positive identification. Bed in low position. Call tm6 light in reach. Side rails up X 1. Provided Education on: use of call jones. Client placed on continuous cardiac and pulse oximetry monitoring. NIBP monitoring applied. Pulse ox on. NIBP on. Door closed. Noise minimized. Lights dimmed. Warm blanket given. Pillow given. 23:00 XRAY Chest (1 view) In Process Unspecified. EDMS 23:08 Inserted saline lock: 20 gauge in right wrist, using aseptic technique. Blood tm6 collected. Flushed with 10 mL NS. 23:20 Urinalysis w/ reflexes Sent. tm6 23:20 Lipase Sent. tm6 23:20 CBC with Diff Sent. tm6 23:47 EKG done, by ED staff, reviewed by Tavon MANDEL. tm6 23:48 Troponin High Sensitivity Sent. tm6 23:48 SARS RAPID Sent. tm6 23:48 D-Dimer Sent. tm6 12/27 00:37 No provider procedures requiring assistance completed. IV discontinued, intact, tm6 bleeding controlled, No redness/swelling at site. Pressure dressing applied. Administered Medications: 12/26 23:20 Drug: Methocarbamol IVPB 1 grams IVPB once over 1 hrs; (mix in NS 100 mL) Route: IVPB; tm6 Infused Over: 1 hrs; Site: right wrist; 23:49 Follow up: Response: No adverse reaction; Pain is decreased; IV Status: Completed tm6 infusion; IV Intake: 100ml 23:20 Drug: Ketorolac IVP 15 mg IVP once Route: IVP; Site: right wrist; tm6 23:49 Follow up: Pain 07/19 Adult; Response: No adverse reaction; Pain is decreased tm6 Medication: 22:35 VIS not applicable for this client. tm6 Intake: 23:49 IV: 100ml; Total: 100ml. tm6 Outcome: 12/27 00:25 Discharge ordered by . marilou 00:37 Discharged to home ambulatory, tm6 00:37 Condition: stable 00:37 Discharge instructions given to patient, Instructed on discharge instructions, follow up and referral plans. medication usage, Demonstrated understanding of instructions, follow-up care, medications, Prescriptions given X 3, 00:37 Patient left the ED. tm6 Signatures: Dispatcher [employer] EDMS Tavon Howard PA PA cp Masterson, Tawney, RN RN tm6 Debbie Brunson ra3 Corrections: (The following items were deleted from the chart) 12/26 22:33 22:32 Allergies: No Known Allergies; tm6 tm6
--- NOTE | 2023-12-28 00:26 | EDPHYS ---
Physician Documentation [facility] Name: Saroj Zacarias Age: 63 yrs Sex: Female : 1960 Arrival Date: 12/27/2023 Time: 21:31 Bed 19 Private MD: ED Physician Epifanio Denney HPI: 12/26 22:05 This 63 yrs old Female presents to ER via Ambulatory with complaints of Back Pain. cp 22:05 The patient presents with pain that is acute, with no known mechanism of injury. cp 22:05 The symptoms are located in the mid and upper back with right worse than left. Onset: cp The symptoms/episode began/occurred 3 day(s) ago. Associated signs and symptoms: Pertinent positives: abdominal bloating and shortness of breath, Pertinent negatives: abdominal pain, chest pain, fever, headache, weakness. The problem was sustained from unknown cause. Modifying factors: the patient symptoms are aggravated by movement. Historical: - Allergies: 22:32 Trulicity; tm6 - PMHx: 22:32 Hypercholesterolemia; Hypertensive disorder; Diabetes mellitus; Diverticulitis; tm6 - PSHx: 22:32 Appendectomy; brain aneurysm SX; Cholecystectomy; hernia repair; Total abdominal tm6 hysterectomy; - Immunization history:: Client reports having NOT received the Covid vaccine. - Infectious Disease History:: Denies. - Social history:: Smoking status: Patient denies any tobacco usage or history of. Patient/guardian denies using alcohol, street drugs. ROS: 22:10 Constitutional: Negative for body aches, chills, fever, poor PO intake, cp 22:10 Eyes: Negative for injury, pain, redness, and discharge, cp 22:10 ENT: Negative for drainage from ear(s), ear pain, sore throat, difficulty swallowing, difficulty handling secretions, 22:10 Cardiovascular: Negative for chest pain, edema, palpitations, 22:10 Respiratory: Positive for shortness of breath, 22:10 Abdomen/GI: Positive for abdominal distension, Negative for abdominal pain, vomiting, diarrhea, constipation, 22:10 Back: Positive for pain at rest, pain with movement, Negative for injury or acute deformity, 22:10 Neuro: Negative for altered mental status, dizziness, headache, numbness, weakness, 22:10 All other systems are negative, Exam: 22:15 Constitutional: The patient appears in no acute distress, alert, awake, cp non-diaphoretic, non-toxic, well developed, well nourished, 22:15 Head/Face: Normocephalic, atraumatic. cp 22:15 Eyes: Periorbital structures: appear normal, Conjunctiva: normal, no exudate, no injection, Sclera: no appreciated abnormality, Lids and lashes: appear normal, bilaterally, 22:15 ENT: External ear(s): are unremarkable, Nose: is normal, Mouth: Lips: moist, Oral mucosa: pink and intact, moist, Posterior pharynx: Airway: no evidence of obstruction, patent, 22:15 Chest/axilla: Inspection: normal, 22:15 Cardiovascular: Rate: normal, Rhythm: regular, Edema: is not appreciated, JVD: is not appreciated, 22:15 Respiratory: the patient does not display signs of respiratory distress, Respirations: normal, no use of accessory muscles, no retractions, labored breathing, is not present, Breath sounds: are clear throughout, no decreased breath sounds, no stridor, no wheezing, 22:15 Abdomen/GI: Inspection: obese Bowel sounds: active, all quadrants, Palpation: abdomen is soft and non-tender, in all quadrants, 22:15 Back: pain, that is moderate, of the right scapular area, right subscapular area and right mid back, ROM is painful, with all movement, 22:15 Skin: no rash present. 22:15 Neuro: Orientation: to person, place \T\ time. Mentation: is normal, Motor: moves all fours, strength is normal, Sensation: is normal, Gait: is steady, 23:52 ECG was reviewed by the Attending Physician. cp Vital Signs: 22:31 BP 141 / 76; Pulse 64; Resp 19; Temp 98.4(O); Pulse Ox 96% on R/A; Weight 67.13 kg; tm6 Height 5 ft. 1 in. ; Pain 7/10; 23:20 BP 133 / 79; Pulse 65; Pulse Ox 95% on R/A; Pain 7/10; tm6 23:49 Pain 3/10; tm6 08/18 00:36 BP 140 / 83; Pulse 62; Resp 19; Temp 98.4; Pulse Ox 96% on R/A; Pain 0/10; 6 12/26 22:31 Body Mass Index 27.96 (67.13 kg, 154.94 cm) 6 12/26 22:31 Pain Scale: Adult 6 23:20 Pain Scale: Adult tm6 23:49 Pain Scale: Adult 6 18 00:36 Pain Scale: Adult tm6 MDM: 12/26 22:16 Patient medically screened. 23:35 Differential diagnosis: Ureterolithiasis acute back pain, pneumonia. 12/27 00:25 Data reviewed: vital signs, nurses notes, lab test result(s), EKG, radiologic studies, cp plain films. 00:25 I considered the following discharge prescriptions or medication management in the emergency department Medications were administered in the Emergency Department. See MAR. Independent interpretation of the following test(s) in the Emergency Department EKG: See my EKG interpretation above. Care significantly affected by the following chronic conditions: Diabetes, Hypertension. Counseling: I had a detailed discussion with the patient and/or guardian regarding the historical points, exam findings, and any diagnostic results supporting the discharge/admit diagnosis, lab results, radiology results, the need for outpatient follow up, a family practitioner. Response to treatment: the patient's symptoms have markedly improved after treatment, and as a result, I will discharge patient. 12/26 22:04 Order name: CBC with Diff; Complete Time: 00:21 12/27 00:21 Interpretation: Normal except: MPV 7.5; EOSINOPHIL % 5.4. 12/26 22:04 Order name: CMP; Complete Time: 00:21 12/27 00:21 Interpretation: Normal except: CL 111; GLUC 120; BUN 23; AST 14; ALB 3.2; A/G 1.0. 12/26 22:04 Order name: Lipase; Complete Time: 00:21 12/26 22:04 Order name: Urinalysis w/ reflexes; Complete Time: 00:21 12/27 00:22 Interpretation: Normal except: UGLUC 4+ (Over); UBLD Trace; UESTR 75; URBC 5-10. 12/26 23:10 Order name: Troponin High Sensitivity; Complete Time: 00:21 12/26 23:10 Order name: SARS RAPID; Complete Time: 00:21 12/26 23:11 Order name: D-Dimer; Complete Time: 00:21 12/26 22:16 Order name: XRAY Chest (1 view) cp 12/26 22:04 Order name: IV Saline Lock; Complete Time: 23:08 cp 12/26 22:04 Order name: Labs collected and sent; Complete Time: 23:08 cp 12/26 23:10 Order name: EKG - Nurse/Tech; Complete Time: 23:48 cp EC/17 23:52 Rate is 62 beats/min. Rhythm is regular. NM interval is normal. QRS interval is normal. cp QT interval is normal. T waves are Inverted in lead aVR. Interpreted by me. Reviewed by me. Administered Medications: 23:20 Drug: Methocarbamol IVPB 1 grams IVPB once over 1 hrs; (mix in NS 100 mL) Route: IVPB; tm6 Infused Over: 1 hrs; Site: right wrist; 23:49 Follow up: Response: No adverse reaction; Pain is decreased; IV Status: Completed tm6 infusion; IV Intake: 100ml 23:20 Drug: Ketorolac IVP 15 mg IVP once Route: IVP; Site: right wrist; tm6 23:49 Follow up: Pain 3/10 Adult; Response: No adverse reaction; Pain is decreased tm6 Disposition Summary: 12/28/23 00:25 Discharge Ordered Notes: Location: Home cp Problem: new cp Symptoms: have improved cp Condition: Stable cp Diagnosis - Dorsalgia, unspecified cp - Shortness of breath cp Followup: cp - With: Private Physician - When: 2 - 3 days - Reason: Recheck today's complaints Discharge Instructions: - Discharge Summary Sheet cp - Acute Back Pain, Adult cp - Musculoskeletal Pain cp - Shortness of Breath, Adult cp - Aspirin and Your Heart cp - Back Exercises cp Forms: - Medication Reconciliation Form cp - Antibiotic Education cp - Prescription Opioid Use cp - Patient Portal Instructions cp - Leadership Thank You Letter cp Prescriptions: - albuterol sulfate 90 mcg/actuation Inhalation HFA Aerosol Inhaler - inhale 1 puff INHALATION route every 4 to 6 hours as needed for shortness of cp breath; administer via ventilator; 1 unit; Refills: 0, Product Selection Permitted - Medrol (Jonathan) 4 mg Oral Tablets, Dose Pack - take 1 tablet ORAL route as directed - follow package instructions; 1 packet; cp Refills: 0, Product Selection Permitted - methocarbamol 750 mg Oral tablet - take 1 tablet ORAL route 3 times per day; 30 tablet; Refills: 0, Product cp Selection Permitted Signatures: Dispatcher [employer] EDMS Tavon Howard PA PA cp Masterson, Tawney RN RN tm6 Corrections: (The following items were deleted from the chart) 22:17 22:17 Chest Single View+RAD.RAD.BRZ ordered. EDMS EDMS 22:33 22:32 Allergies: No Known Allergies; tm6 tm6 23:11 23:11 Troponin High Sensitivity+C.LAB.BRZ ordered. EDMS EDMS 23:11 23:11 SARS-COV-2 Antigen Rapid+I.LAB.BRZ ordered. EDMS EDMS
[2023-12-28 00:47] VITALS: TEMP 98.4
[2023-12-28 01:03] VITALS: BP 140/83; O2SAT 96
--- NOTE | 2023-12-30 11:39 | RAD REPORT ---
EXAM DESCRIPTION: RAD - Chest Single View - 12/27/2023 10:58 pm CLINICAL HISTORY: Abd pain; Abdominal distention TECHNIQUE: Axial computed tomography images of the abdomen and pelvis without intravenous contrast. Sagittal and coronal reformatted images were created and reviewed. This CT exam was performed usi ng one or more of the following dose reduction techniques: automated exposure control, adjustment o f the mA and/or kV according to patient size, and/or use of iterative reconstruction technique. COMPARISON: No relevant prior studies available. FINDINGS: Lung bases: Unremarkable. No mass. No consolidation. ABDOMEN: Liver: Unremarkable. Gallbladder and bile ducts: Unremarkable. No calcified stones. No ductal dilation. Pancreas: Unremarkable. No ductal dilation. Spleen: Unremarkable. No splenomegaly. Adrenals: Unremarkable. No mass. Kidneys and ureters: Unremarkable. No obstructing stones. No hydronephrosis. Stomach and bowel: Moderate stool. No bowel obstruction. No mucosal thickening. PELVIS: Appendix: Normal caliber appendix. No findings to suggest acute appendicitis. Bladder: The urinary bladder is decompressed. No stones. Reproductive: The uterus is not well visualized. There is a large complex cystic lesion with multip le peripheral areas of soft tissue nodularity and scattered septations extending from the midline pel vis into the upper abdomen measuring approximately 31.5 x 22 x 28 cm (CC by AP by transverse). ABDOMEN and PELVIS: Intraperitoneal space: Trace free fluid. No free air. Bones/joints: Mild multilevel spondylosis. No acute fracture. No dislocation. Soft tissues: Unremarkable. Vasculature: Unremarkable. No abdominal aortic aneurysm. Lymph nodes: Unremarkable. No enlarged lymph nodes. IMPRESSION: 1. 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 2. Other findings as above. THIS REPORT CONTAINS FINDINGS THAT MAY BE CRITICAL TO PATIENT CARE: The findings were verbally discus sed via telephone conference with Dr. Epifanio Denney on 11/03/2023 11:35 PM CDT. The results were acknow ledged and understood. Electronically signed by: Nini Farah MD 11/03/2023 11:37 PM CDT RP Due to temporary technical issues with the PACS/Fluency reporting system, reports are being signed by the in house radiologist without review as a courtesy to ensure prompt reporting. The interpreting r adiologist is fully responsible for the content of the report.
== END 2023-12-28 00:37 | disposition home or self-care (01) ==
LOC: ER 21:31
DX: M54.9 Dorsalgia, unspecified (principal); R06.02 Shortness of breath; E11.9 Type 2 diabetes mellitus without complications; I10 Essential (primary) hypertension; Z11.52 Encounter for screening for COVID-19
CPT/HCPCS: 96365; 93005; 85025; 81001; 36415; 85379; 84484; 83690; 80053; 71045; 96375; 99284; 87811; J2800

== ENCOUNTER 2024-07-26 11:20 | Inpatient (IN) | payer OTHER ==
[2024-07-26 12:26] LABS: Influenza A Ag Negative; Influenza B Ag Negative; SARS-CoV-2 Antigen Rapid Res Negative (Negative)
[2024-07-26] MEDS ORDERED: ALBUTEROL 2.5 MG/3 ML NEB SOL ONE (12:40)
[2024-07-26] MEDS ORDERED: IPRATROPIUM BROM 0.5MG/2.5ML ONE (12:40)
[2024-07-26] MEDS ORDERED: ACETAMINOPHEN 325 MG TABLET ONE (12:41)
--- NOTE | 2024-07-26 12:55 | RAD REPORT ---
EXAMINATION: ONE VIEW CHEST XR CLINICAL INDICATION: Female, 64 years old.,COUGH TECHNIQUE: Frontal chest projection is submitted. Examination is limited by patient positioning and t echnique. COMPARISON: 12/27/2023 FINDINGS: The lungs are well inflated and clear. Background chronic interstitial changes, stable. No pneumothor ax or sizable effusion. The heart is normal in size. Mediastinal contours are unremarkable. IMPRESSION: No acute intrathoracic abnormalities.
[2024-07-26 13:00] LABS: Absolute Eosinophils 0.1 K/uL (0-0.5); Absolute Monocytes 0.8 K/uL (0.1-1.3); Absolute Neutrophil 7.1 K/uL (1.8-8.0); Basophils % 0.4 % (0-1.3); Eosinophils % 1.2 % (0-4.4); Hematocrit 45.8 % (36.0-45.0); Hemoglobin 15.6 g/dL (12.0-15.0); Lymphocytes % 11.1 % (15.3-44.8); MCH 30.6 pg (27.0-35.0); MCHC 34.1 g/dL (32.0-36.0); MCV 89.7 fL (80-100); MPV 7.5 fL (7.6-11.3); Monocytes % 8.6 % (3.3-12.3); Neutrophils % 78.7 % (41.7-73.7); Nucleated Red Blood Cells % 0.1 % (0-0); Platelets 256 thou/uL (152-406); RBC Red Blood Cell Count 5.11 M/uL (3.86-4.86); Red Cell Distribution Width 13.8 % (12.1-15.2)
[2024-07-26 13:12] LABS: PT Prothrombin Time 14.1 SECONDS (10-13.0); Protime INR 1.25
[2024-07-26 13:19] LABS: Albumin 3.2 g/dL (3.4-5.0); Albumin/Globulin Ratio 0.7 (1.1-1.8); Anion Gap 11.7 mEq/L (5.0-15.0); Bilirubin Direct 0.2 mg/dL (0-0.2); Bilirubin Indirect, Calculated 0.4 mg/dL (0.2-0.8); Bilirubin Total 0.6 mg/dL (0.2-1.0); Globulin 4.5 g/dL (2.3-3.5); Magnesium 2.2 mg/dL (1.6-2.4); Potassium 3.7 mEq/L (3.5-5.1); Protein, Total 7.7 g/dL (6.4-8.2); Troponin High Sensitivity 3.9 pg/mL (<58.9)
[2024-07-26] MEDS ORDERED: METHYLPREDNISOLONE 125 MG INJ ONE (13:52)
[2024-07-26] MEDS ORDERED: BENZONATATE 100 MG CAP PO ONE (13:52)
--- NOTE | 2024-07-26 14:04 | ER ---
Nurse's Notes [facility] Name: Saroj Zacarias Age: 64 yrs Sex: Female : 1960 Arrival Date: 07/26/2024 Time: 11:20 Bed 19 Private MD: Diagnosis: Bronchitis, hypoxia, stridor Presentation: 07/26 11:41 Coronavirus screen: Client denies travel out of the [place] in the last 14 days. ss congestion, cough unrelated to allergies. Ebola Screen: Patient denies travel to an Ebola-affected area in the 21 days before illness onset. Initial Sepsis Screen: Does the patient meet any 2 criteria? No. Patient's initial sepsis screen is negative. Does the patient have a suspected source of infection? No. Patient's initial sepsis screen is negative. Risk Assessment: Do you want to hurt yourself or someone else? Patient reports no desire to harm self or others. 11:41 Method Of Arrival: Wheelchair ss 11:41 Acuity: LILLIAM 3 ss 11:45 Chief complaint: Patient states: Cough, congestion, back pain, body aches, no appetite ll1 since , getting worse. Onset of symptoms was July 22, 2024. Historical: - Allergies: 11:41 Trulicity; ss - PMHx: 11:41 diabetes mellitus; Diverticulitis; Hypercholesterolemia; Hypertensive disorder; ss Pre-Diabetes; - PSHx: 11:41 Appendectomy; brain aneurysm SX; Cholecystectomy; hernia repair; Total abdominal ss hysterectomy; - Immunization history:: Adult Immunizations up to date. - Social history:: Smoking status: Patient denies any tobacco usage or history of. Screenin:50 [facility] ED Fall Risk Assessment (Adult) History of falling in the last 3 months, aa5 including since admission No falls in past 3 months (0 pts) Confusion or Disorientation No (0 pts) Intoxicated or Sedated No (0 pts) Impaired Gait No (0 pts) Mobility Assist Device Used No (0 pt) Altered Elimination No (0 pt) Score/Fall Risk Level 0 - 2 = Low Risk Oriented to surroundings, Maintained a safe environment, Educated pt \T\ family on fall prevention, incl call for assistance when getting out of bed, Assessed \T\ reinforced patient's understanding of fall precautions. Abuse screen: Denies threats or abuse. Nutritional screening: No deficits noted. Tuberculosis screening: No symptoms or risk factors identified. Assessment: 11:50 General: Appears uncomfortable, ill, Behavior is calm, cooperative. Pain: Complains of aa5 pain in back, chest, and head Pain currently is 10 out of 10 on a pain scale. Quality of pain is described as aching, Is continuous. Neuro: Level of Consciousness is awake, alert, obeys commands, Oriented to person, place, time, situation. Cardiovascular: Heart tones S1 S2 present Rhythm is regular. Respiratory: Reports cough and SOB. Airway is patent Respiratory effort is even, labored, Respiratory pattern is regular, symmetrical, tachypnea with congestion auscultated bilaterally the patient has moderate shortness of breath. GI: Abdomen is round non-distended, Bowel sounds present X 4 quads. Abd is soft and non tender X 4 quads. : No signs and/or symptoms were reported regarding the genitourinary system. EENT: Hoarse voice noted. Reports nasal congestion. Derm: Skin is pink, warm \T\ dry. Musculoskeletal: Range of motion: intact in all extremities. 12:57 Reassessment: No changes from previously documented assessment. Patient and/or family aa5 updated on plan of care and expected duration. Pain level reassessed. 14:00 Reassessment: Patient is alert, oriented x 3, equal unlabored respirations, skin aa5 warm/dry/pink. Patient states feeling better. 14:00 General: Appears comfortable, Behavior is calm, cooperative. aa5 14:09 Reassessment: MD at bedside . aa5 16:54 Reassessment: Patient is alert, oriented x 3, equal unlabored respirations, skin aa5 warm/dry/pink. Patient states feeling better. 18:45 Reassessment: Patient is alert, oriented x 3, equal unlabored respirations, skin aa5 warm/dry/pink. Vital Signs: 11:45 BP 145 / 87; Pulse 96; Resp 20; Temp 98.7; Pulse Ox 96% ; Weight 77.11 kg; Height 5 ft. ll1 1 in. ; Pain 10/10; 12:57 BP 112 / 84; Pulse 116; Resp 28 S; Pulse Ox 97% on Nebulizer Mask; aa5 14:00 BP 133 / 82; Pulse 115; Resp 22 S; Pulse Ox 88% on R/A; aa5 14:02 Pulse Ox 96% on 2 lpm NC; aa5 15:00 BP 130 / 75; Pulse 101; Resp 20 S; Pulse Ox 95% on 2 lpm NC; aa5 16:54 BP 130 / 75; Pulse 102; Resp 19 S; Pulse Ox 95% on 2 lpm NC; aa5 18:45 BP 123 / 80; Pulse 92; Resp 20 S; Temp 98.2; Pulse Ox 95% on 2 lpm NC; aa5 19:25 BP 131 / 61; Pulse 93; Resp 18; Pulse Ox 95% on 2 lpm NC; Pain 0/10; rg5 11:45 Body Mass Index 32.12 (77.11 kg, 154.94 cm) ll1 11:45 Pain Scale: Adult ll1 19:25 Pain Scale: Adult rg5 ED Course: 11:22 Patient arrived in ED. mr 11:23 Ana Del Castillo MD is Attending Physician. sp3 11:40 Arm band placed on. ss 11:41 Triage completed. ss 11:48 Silvana Sullivan, RN is Primary Nurse. aa5 11:50 Patient has correct armband on for positive identification. Bed in low position. Call aa5 light in reach. Side rails up X 1. Adult w/ patient. 11:50 COVID swab sent to lab. aa5 12:06 CXR XRAY In Process Unspecified. EDMS 12:50 EKG done, by ED staff, reviewed by Ana Del Castillo MD. aa5 12:52 Initial lab(s) drawn, by il, sent to lab. Inserted saline lock: 20 gauge in right aa5 forearm, using aseptic technique. Blood collected. Flushed with 10 mL NS. 14:04 Ector Carlin MD is Hospitalizing Provider. sp3 19:10 No provider procedures requiring assistance completed. rg5 19:10 Patient admitted, IV remains in place. rg5 19:47 Provided Education on: needs for admit. rg5 Administered Medications: 12:57 Drug: DuoNeb Nebulize (3:1) (2.5 mg - 0.5 mg) 3 ml Nebulizer once Route: Nebulizer; aa5 13:50 Follow up: Response: No adverse reaction aa5 12:57 Drug: Acetaminophen PO 650 mg PO once Route: PO; aa5 13:50 Follow up: Response: No adverse reaction aa5 14:03 Drug: MethylPrednisoLONE IVP 125 mg IVP once Route: IVP; Site: right forearm; aa5 14:21 Follow up: Response: No adverse reaction aa5 14:03 Drug: Tessalon Perle PO 200 mg PO once Route: PO; aa5 14:21 Follow up: Response: No adverse reaction aa5 14:21 Drug: traMADol PO 50 mg PO once Route: PO; aa5 16:56 Follow up: Response: No adverse reaction aa5 Medication: 12:08 VIS not applicable for this client. aa5 Outcome: 14:04 Decision to Hospitalize by Provider. sp3 19:10 Admitted to Med/surg accompanied by tech, via stretcher, with oxygen, rg5 19:10 Condition: stable 19:10 Instructed on the need for admit, 19:47 Patient left the ED. rg5 Signatures: Dispatcher [employer] EDDC Caitlyn Marcelo, Reg Reg mr SullivanSilvana, RN RN aa5 Vee Godwin RN RN Wilfredo Desir RN RN ll1 Ana Del Castillo MD MD sp3 Jorge Hastings RN RN rg5
--- NOTE | 2024-07-26 14:04 | EDPHYS ---
Physician Documentation [facility] Name: Saroj Zacarias Age: 64 yrs Sex: Female : 1960 Arrival Date: 07/26/2024 Time: 11:20 Bed 19 Private MD: ED Physician Ana Del Castillo HPI: 07/26 12:14 This 64 yrs old Female presents to ER via Wheelchair with complaints of Flu Symptoms. sp3 12:14 64-year-old female with a history of hypertension, diabetes, hyperlipidemia now sp3 presents to the ED with chief complaint cough, congestion and shortness of breath over the last 3 to 4 days. She denies any fever, headache, chest pain, abdominal pain, nausea, vomiting, diarrhea, syncope, near syncope, rash, known sick contacts, travel history, prolonged immobilization, or any other signs or symptoms on ROS at this time.. Historical: - Allergies: 11:41 Trulicity; ss - PMHx: 11:41 diabetes mellitus; Diverticulitis; Hypercholesterolemia; Hypertensive disorder; ss Pre-Diabetes; - PSHx: 11:41 Appendectomy; brain aneurysm SX; Cholecystectomy; hernia repair; Total abdominal ss hysterectomy; - Immunization history:: Adult Immunizations up to date. - Social history:: Smoking status: Patient denies any tobacco usage or history of. ROS: 12:14 Constitutional: Negative for fever, chills, and weight loss, Eyes: Negative for injury, sp3 pain, redness, and discharge, Neck: Negative for injury, pain, and swelling, Cardiovascular: Negative for chest pain, palpitations, and edema, Abdomen/GI: Negative for abdominal pain, nausea, vomiting, diarrhea, and constipation, Back: Negative for injury and pain, MS/Extremity: Negative for injury and deformity, Skin: Negative for injury, rash, and discoloration, Neuro: Negative for headache, weakness, numbness, tingling, and seizure, Psych: Negative for depression, anxiety, suicide ideation, homicidal ideation, and hallucinations, Allergy/Immunology: Negative for hives, rash, and allergies, Endocrine: Negative for neck swelling, polydipsia, polyuria, polyphagia, and marked weight changes, 12:14 All other systems are negative, Exam: 12:14 Constitutional: This is a well developed, well nourished patient who is awake, alert, sp3 and in no acute distress. Head/Face: Normocephalic, atraumatic. Eyes: Pupils equal round and reactive to light, extra-ocular motions intact. Lids and lashes normal. Conjunctiva and sclera are non-icteric and not injected. Cornea within normal limits. Periorbital areas with no swelling, redness, or edema. Neck: Trachea midline, no thyromegaly or masses palpated, and no cervical lymphadenopathy. Supple, full range of motion without nuchal rigidity, or vertebral point tenderness. No Meningismus. Chest/axilla: Normal chest wall appearance and motion. Nontender with no deformity. No lesions are appreciated. Cardiovascular: Regular rate and rhythm with a normal S1 and S2. No gallops, murmurs, or rubs. Normal PMI, no JVD. No pulse deficits. Abdomen/GI: Soft, non-tender, with normal bowel sounds. No distension or tympany. No guarding or rebound. No evidence of tenderness throughout. Back: No spinal tenderness. No costovertebral tenderness. Full range of motion. Skin: Warm, dry with normal turgor. Normal color with no rashes, no lesions, and no evidence of cellulitis. MS/ Extremity: Pulses equal, no cyanosis. Neurovascular intact. Full, normal range of motion. Neuro: Awake and alert, GCS 15, oriented to person, place, time, and situation. Cranial nerves II-XII grossly intact. Motor strength 5/5 in all extremities. Sensory grossly intact. Cerebellar exam normal. Normal gait. Psych: Awake, alert, with orientation to person, place and time. Behavior, mood, and affect are within normal limits. 12:14 Respiratory: Patient 88% on room air while sleeping which latrice to 94% while talking. Audible wheezing and rhonchi noted. Active cough also noted., 13:05 ECG was reviewed by the Attending Physician. EKG demonstrates normal sinus rhythm at 83 sp3 bpm with normal intervals, normal QRS, normal axis, normal ST/T-segment's without evidence of acute ischemia. Vital Signs: 11:45 BP 145 / 87; Pulse 96; Resp 20; Temp 98.7; Pulse Ox 96% ; Weight 77.11 kg; Height 5 ft. ll1 1 in. ; Pain 10/10; 12:57 BP 112 / 84; Pulse 116; Resp 28 S; Pulse Ox 97% on Nebulizer Mask; aa5 14:00 BP 133 / 82; Pulse 115; Resp 22 S; Pulse Ox 88% on R/A; aa5 14:02 Pulse Ox 96% on 2 lpm NC; aa5 15:00 BP 130 / 75; Pulse 101; Resp 20 S; Pulse Ox 95% on 2 lpm NC; aa5 16:54 BP 130 / 75; Pulse 102; Resp 19 S; Pulse Ox 95% on 2 lpm NC; aa5 18:45 BP 123 / 80; Pulse 92; Resp 20 S; Temp 98.2; Pulse Ox 95% on 2 lpm NC; aa5 19:25 BP 131 / 61; Pulse 93; Resp 18; Pulse Ox 95% on 2 lpm NC; Pain 0/10; rg5 11:45 Body Mass Index 32.12 (77.11 kg, 154.94 cm) ll1 11:45 Pain Scale: Adult ll1 19:25 Pain Scale: Adult rg5 MDM: 11:41 Medical Screening Exam initiated sp3 12:15 Data reviewed: vital signs, nurses notes, old medical records, lab test result(s), EKG, sp3 radiologic studies. ED course: 64-year-old female with cough, shortness of breath and congestion. Differential diagnosis includes pneumonia, bronchitis, upper respiratory infection, viral illness, COVID-19, influenza, CHF, among others. I am not highly suspicious of sepsis, shock, ACS, or any other critical process. Workup will include chest x-ray, EKG, general labs including troponin and BNP as well as viral swabs. Disposition pending workup and patient course. Treatment will also include supplemental oxygen as well as nebulizers with DuoNeb.. 13:41 ED course: Patient just finished nebulizer and still having mild stridor. Will sp3 administer Solu-Medrol 125 mg IV along with Tessalon Perle. Chest x-ray and labs are within normal limits. Viral swabs are negative. Room air pulse oxygenation 94% on room air. Will observe a bit further consideration for repeat nebulizer and time for above measures to take effect.. 14:03 ED course: Patient pulse oxygenation still dipping into the 88% range and patient has sp3 active cough with stridor. Solu-Medrol has helped somewhat. Will place in observation for continued treatment.. 07/26 11:32 Order name: COVID-19 Ag + Flu A+B Ag; Complete Time: 12:37 sp3 07/26 12:13 Order name: Basic Metabolic Panel; Complete Time: 13:26 sp3 07/26 12:13 Order name: CBC with Diff; Complete Time: 13:05 sp3 07/26 12:13 Order name: LFT's; Complete Time: 13:26 sp3 07/26 12:13 Order name: Magnesium; Complete Time: 13:26 sp3 07/26 12:13 Order name: NT PRO-BNP; Complete Time: 13:26 sp3 07/26 12:13 Order name: PT-INR; Complete Time: 13:26 sp3 07/26 12:13 Order name: Troponin HS; Complete Time: 13:26 sp3 07/26 14:19 Order name: Basic Metabolic Panel EDMS 07/26 14:19 Order name: Basic Metabolic Panel EDMS 07/26 14:19 Order name: Basic Metabolic Panel EDMS 07/26 14:19 Order name: Basic Metabolic Panel EDMS 07/26 14:19 Order name: Basic Metabolic Panel EDMS 07/26 14:19 Order name: CBC with Automated Diff EDMS 07/26 14:19 Order name: CBC with Automated Diff EDMS 07/26 14:19 Order name: CBC with Automated Diff EDMS 07/26 14:19 Order name: CBC with Automated Diff EDMS 07/26 14:19 Order name: CBC with Automated Diff EDMS 07/26 11:32 Order name: CXR XRAY; Complete Time: 13:05 3 07/26 12:13 Order name: Cardiac monitoring; Complete Time: 12:37 3 07/26 12:13 Order name: EKG - Nurse/Tech; Complete Time: 12:57 3 07/26 12:13 Order name: IV Saline Lock; Complete Time: 12:57 sp3 07/26 12:13 Order name: Labs collected and sent; Complete Time: 12:57 3 07/26 12:13 Order name: O2 Per Protocol; Complete Time: 12:37 3 07/26 12:13 Order name: O2 Sat Monitoring; Complete Time: 12:37 sp3 Administered Medications: 12:57 Drug: DuoNeb Nebulize (3:1) (2.5 mg - 0.5 mg) 3 ml Nebulizer once Route: Nebulizer; aa5 13:50 Follow up: Response: No adverse reaction aa5 12:57 Drug: Acetaminophen PO 650 mg PO once Route: PO; aa5 13:50 Follow up: Response: No adverse reaction aa5 14:03 Drug: MethylPrednisoLONE IVP 125 mg IVP once Route: IVP; Site: right forearm; aa5 14:21 Follow up: Response: No adverse reaction aa5 14:03 Drug: Tessalon Perle PO 200 mg PO once Route: PO; aa5 14:21 Follow up: Response: No adverse reaction aa5 14:21 Drug: traMADol PO 50 mg PO once Route: PO; aa5 16:56 Follow up: Response: No adverse reaction aa5 Disposition Summary: 07/26/24 14:04 Hospitalization Ordered Notes: Hospitalization Status: Observation sp3 Provider: Ector Carlin sp3 Condition: Stable sp3 Problem: new sp3 Symptoms: have worsened sp3 Bed/Room Type: Standard sp3 Location: Telemetry/MedSurg (observation)(07/26/24 18:38) Room Assignment: [facility](07/26/24 18:38) Diagnosis - Bronchitis, hypoxia, stridor sp3 Forms: - Medication Reconciliation Form sp3 - SBAR form sp3 - Leadership Thank You Letter sp3 Signatures: Dispatcher [employer] EDSilvana Alcantara, RN RN aa5 Vee Godwin RN RN ss Phuc Deleon, DIRECTOR MATERNAL CHILD-C DIRECTOR MATERNAL CHILD-Cla1 Ana Del Castillo MD MD sp3 Andria Macdonald RN RN kb3 Corrections: (The following items were deleted from the chart) 11:32 11:32 COVID-19 Ag + Flu A+B Ag+I.LAB.BRZ ordered. EDMS EDMS 11:32 11:32 Chest Single View+RAD.RAD.BRZ ordered. EDMS EDMS 12:13 12:13 BASIC METABOLIC PANEL+C.LAB.BRZ ordered. EDMS EDMS 12:13 12:13 CBC+H.LAB.BRZ ordered. EDMS EDMS 12:13 12:13 HEPATIC FUNCTION+C.LAB.BRZ ordered. EDMS EDMS 12:13 12:13 MAGNESIUM+C.LAB.BRZ ordered. EDMS EDMS 12:13 12:13 PROBNP+C.LAB.BRZ ordered. EDMS EDMS 12:13 12:13 PROTIME (+INR)+COAG.LAB.BRZ ordered. EDMS EDMS 12:13 12:13 Troponin High Sensitivity+C.LAB.BRZ ordered. EDMS EDMS 16:20 14:04 Telemetry/MedSurg (observation) sp3 kb3 16:20 14:04 sp3 kb3 18:38 16:20 [facility] ER HOLD kb3 ss 18:38 16:20 ERHOLD- kb3 ss
[2024-07-26] MEDS ORDERED: ONDANSETRON 4 MG/2 ML VIAL IV PRN (14:14)
[2024-07-26] MEDS ORDERED: ACETAMINOPHEN 500 MG TAB PO PRN (14:14)
--- NOTE | 2024-07-26 14:29 | P.HP ---
Certification for Inpatient Patient admitted to: Observation With expected LOS: <2 Midnights Patient will require the following post-hospital care: None Practitioner: I am a practitioner with admitting privileges, knowledge of patient current condition, hospital course, and medical plan of care. Services: Services provided to patient in accordance with Admission requirements found in Title 42 Section 412.3 of the Code of Federal Regulations Patient History Date of Service: 07/26/24 Reason for admission: Acute bronchitis/hypoxia History of Present Illness: 64-year-old female with history of hypertension, hyperlipidemia, diet-controlled diabetes presents to the emergency department chief complaint of shortness of breath, cough. She began feeling unwell on 07/22 and has progressively getting worse since then, one of her coworkers did test positive for influenza. She was evaluated in the emergency department her labs were significant for hemoglobin 15.6 hematocrit 45.8 COVID and influenza negative chest x-ray negative for acute findings. She is noted to have significant expiratory wheezing and rhonchi and is desaturating into the high 80s at rest. She will be admitted for further evaluation and management of suspected acute bronchitis Allergies No Known Allergies Allergy (Verified 07/31/22 10:15) Home Medications: Atorvastatin Calcium [Lipitor*] 20 mg PO DAILY 06/19/22 Cyclobenzaprine [Flexeril*] 10 mg PO TID PRN 06/19/22 Levothyroxine [Synthroid*] 50 mcg PO [id number] 06/19/22 Losartan Potassium 100 mg PO BEDTIME 06/19/22 Omeprazole [Prilosec] 40 mg PO DAILY 06/19/22 Amlodipine [Norvasc*] 1 tab PO DAILY 03/09/23 Aspirin 1 tab PO DAILY 03/09/23 Magnesium Oxide 1 tab PO DAILY 03/09/23 hydroCHLOROthiazide [Hydrochlorothiazide] 1 tab PO DAILY 03/09/23 - Past Medical/Surgical History Diabetic: Yes -: Hypertension -: Diabetes type 2 [id number] controlled -: Hyperlipidemia -: Chronic back pain -: Repair of brain aneurysm 2015, appendectomy, abdominal hysterectomy -: Cholecystectomy -: Hernia repair Psychosocial/ Personal History: Lives with family at home - Family History Father -: Heart disease, Hypertension - Social History Smoking Status: Never smoker Alcohol use: No CD- Drugs: No Place of Residence: Home Review of Systems 10-point ROS is otherwise unremarkable Respiratory: Cough, Shortness of Breath, Wheezing Physical Examination - Physical Exam General: Alert, In no apparent distress, Oriented x3 HEENT: Atraumatic, PERRLA, EOMI Neck: Supple, 2+ carotid pulse no bruit, No LAD Respiratory: Expiratory wheezes, Rhonchi/gurgles Cardiovascular: Regular rate/rhythm, Normal S1 S2 Capillary refill: <2 Seconds Gastrointestinal: Normal bowel sounds Musculoskeletal: No tenderness Integumentary: No rashes Neurological: Normal gait, Normal speech, Normal strength at 5/5 x4 extr - Studies Laboratory Data (last 24 hrs) 07/26/24 07/26/24 07/26/24 12:53 12:53 12:53 WBC 9.10 Hgb 15.6 H Hct 45.8 H Plt Count 256 PT 14.1 H INR 1.25 Sodium 139 Potassium 3.7 BUN 16 Creatinine 0.89 Glucose 124 H Magnesium 2.2 Total Bilirubin 0.6 AST 36 ALT 68 H Alkaline Phosphatase 90 Assessment and Plan - Plan Assessment: Acute bronchitis Acute hypoxic respiratory failure secondary to above Diabetes mellitus type 2diet controlled Hypertension Hyperlipidemia Plan: Acute bronchitis Acute hypoxic respiratory failure secondary to above IV Zithromax Daily room air saturations P.o. steroids, as needed nebulizer treatments Diabetes mellitus type 2diet controlled Carb consistent diet Hypertension Hyperlipidemia Continue home medications when verified DVT PPX: Lovenox Code status: Full Discharge Plan: Home Plan to discharge in: 24 Hours - Advance Directives Does patient have a Living Will: No Does patient have a Durable POA for Healthcare: No - Code Status/Comfort Care Code Status Assessed: Yes (Full code) Critical Care: No Time Spent Managing Pts Care (In Minutes): 65
[2024-07-26] MEDS ORDERED: NA CHLORIDE 0.9% 1,000 ML ONE (18:16)
[2024-07-26] MEDS ORDERED: GUAIFENESIN/CODEINE 5ML UCUP ONE (18:16)
[2024-07-26] MEDS: GUAIFENESIN/CODEINE 5ML UCUP PO PRN (18:19)
[2024-07-26] MEDS: NA CHLORIDE 0.9% 1,000 ML IV SCH (18:19)
[2024-07-26 20:49] VITALS: BMI 31.4
[2024-07-26] MEDS: TRAMADOL HCL 50 MG TAB PO PRN (20:56)
[2024-07-26] MEDS: predniSONE 10 MG TAB PO SCH (20:56)
[2024-07-27] MEDS ORDERED: CHOLECALCIFEROL 1250 MCG PO SCH (05:15)
[2024-07-27 06:04] LABS: Absolute Lymphocytes (CBC) 0.7 K/uL (0.7-4.9); Absolute Monocytes 0.2 K/uL (0.1-1.3); Absolute Neutrophil 6.8 K/uL (1.8-8.0); Basophils % 0.1 % (0-1.3); Hematocrit 36.5 % (36.0-45.0); Hemoglobin 12.6 g/dL (12.0-15.0); Lymphocytes % 8.6 % (15.3-44.8); MCHC 34.5 g/dL (32.0-36.0); MCV 89.7 fL (80-100); MPV 7.4 fL (7.6-11.3); Monocytes % 2.6 % (3.3-12.3); Neutrophils % 88.7 % (41.7-73.7); Nucleated Red Blood Cells % 0.1 % (0-0); Platelets 251 thou/uL (152-406); RBC Red Blood Cell Count 4.07 M/uL (3.86-4.86); Red Cell Distribution Width 13.8 % (12.1-15.2)
[2024-07-27 06:17] LABS: Anion Gap 9.3 mEq/L (5.0-15.0); Potassium 4.3 mEq/L (3.5-5.1)
[2024-07-27] MEDS: FLU (Fluarix Triv) TS24-25(6MOS UP)/PF 45 MCG/0.5 ML Syringe IM ONE (07:15)
[2024-07-27 07:51] LABS: Blood Morphology Comment NOT SEEN (NOT SEEN); Platelet Estimate ADEQ; White Blood Cell Scan OK (OK)
[2024-07-27 08:53] VITALS: O2SAT 96
[2024-07-27] MEDS: ENOXAPARIN 40 MG/0.4 ML SQ SCH (09:00)
[2024-07-27] MEDS: PANTOPRAZOLE 40MG TABLET PO SCH (09:15)
[2024-07-27] MEDS: AZITHROMYCIN IV 500 MG in NA CHLORIDE 0.9% 250 ML IVPB SCH (09:16)
[2024-07-27] MEDS ORDERED: IPRATROPIUM BROM 0.5MG/2.5ML ONE (10:03)
[2024-07-27] MEDS: IPRATROPIUM BROM 0.5MG/2.5ML NEB SCH (10:27)
[2024-07-27] MEDS: INSULIN REGULAR (HUMAN) 100 UNIT/ML SQ SCH (12:30)
--- NOTE | 2024-07-27 13:54 | P.PN ---
Date of Service: 07/27/24 Subjective Ambulating in her room Continues to cough Laryngitis evident ROS 10 point ROS as noted above, otherwise negative Physical Exam General: Alert and Oriented x3, NAD HEENT: Atraumatic, PERRLA, EOMI Neck: Supple, 2+ carotid pulse no bruit, No LAD Respiratory: Inspiratory wheezes, on room air Cardiovascular: RRR, Normal S1 S2 Capillary refill: <2 Seconds Gastrointestinal: Normal bowel sounds Musculoskeletal: No tenderness Integumentary: No rashes Neurological: Normal gait, Normal speech, Normal strength at 5/5 x4 extr Vitals Reviewed Assessment: Acute bronchitis Acute hypoxic respiratory failure secondary to above Diabetes mellitus type 2diet controlled Hypertension Hyperlipidemia Plan: Acute bronchitis Acute hypoxic respiratory failure secondary to above IV Zithromax Daily room air saturations P.o. steroids, as needed nebulizer treatments Diabetes mellitus type 2diet controlled Carb consistent diet Hypertension Hyperlipidemia Continue home medications when verified DVT PPX: Lovenox Code status: Full Discharge Plan: Home Plan to discharge in: 24 Hours
[2024-07-27] MEDS: ALBUTEROL 2.5 MG/3 ML NEB SOL NEB PRN (17:54)
[2024-07-27] MEDS: AMLODIPINE 5 MG TAB PO SCH (20:26)
[2024-07-27] MEDS: LOSARTAN POTASSIUM 50 MG TABLET PO SCH (20:26)
[2024-07-28] MEDS ORDERED: CHLORASEPTIC LOZENGES PO SCH (05:00)
[2024-07-28 05:35] LABS: Absolute Lymphocytes (CBC) 1.1 K/uL (0.7-4.9); Absolute Monocytes 0.5 K/uL (0.1-1.3); Absolute Neutrophil 8.7 K/uL (1.8-8.0); Basophils % 0.1 % (0-1.3); Hematocrit 38.6 % (36.0-45.0); Lymphocytes % 10.5 % (15.3-44.8); MCH 30.4 pg (27.0-35.0); MCHC 33.8 g/dL (32.0-36.0); MCV 90.1 fL (80-100); MPV 7.4 fL (7.6-11.3); Neutrophils % 84.4 % (41.7-73.7); Platelets 273 thou/uL (152-406); RBC Red Blood Cell Count 4.29 M/uL (3.86-4.86); Red Cell Distribution Width 13.7 % (12.1-15.2)
--- NOTE | 2024-07-28 07:42 | RAD REPORT ---
EXAMINATION: ONE VIEW CHEST XR CLINICAL INDICATION: SOB TECHNIQUE: Frontal chest projection is submitted. Examination is limited by patient positioning and t echnique. COMPARISON: 07/26/2024 FINDINGS: Mild interstitial opacities are seen without significant change. Mild linear atelectasis likely prese nt in the left lung base. The heart is upper limit of normal in size. No displaced fractures identified. IMPRESSION: No acute intrathoracic abnormalities.
[2024-07-28] MEDS: CHLORASEPTIC LOZENGES PO PRN (07:47)
[2024-07-28 09:02] VITALS: BP 142/68; TEMP 98.2
--- NOTE | 2024-07-28 12:37 | EKG ---
Test Date: 2024-07-26 Test Time: 12:47:08 Ophthalmologist Retina Specialist: NESSA MEASUREMENT RESULTS: Intervals: Rate: 83 SD: 154 QRSD: 82 QT: 358 QTc: 420 [place]: P: 61 SD: 154 QRS: 48 T: 76 INTERPRETIVE STATEMENTS: Normal sinus rhythm Normal ECG Compared to ECG 12/27/2023 23:45:09 No significant changes Electronically Signed On 07-28-24 12:27:57 CDT by Yuan Alcazar
--- NOTE | 2024-07-28 15:24 | P.DS ---
Admission Date: 07/27/24 Discharge Date: 07/28/24 Disposition: ROUTINE DISCHARGE Discharge Condition: GOOD Reason for Admission: Acute bronchitis/hypoxia Brief History of Present Illness: Diagnosis Acute bronchitis Acute hypoxic respiratory failure secondary to above Acute Laryngitis Diabetes mellitus type 2diet controlled Hypertension Hyperlipidemia HPI 07/26/24 64-year-old female with history of hypertension, hyperlipidemia, diet-controlled diabetes presents to the emergency department chief complaint of shortness of breath, cough. She began feeling unwell on 07/22 and has progressively getting worse since then, one of her coworkers did test positive for influenza. She was evaluated in the emergency department her labs were significant for hemoglobin 15.6 hematocrit 45.8 COVID and influenza negative chest x-ray negative for acute findings. She is noted to have significant expiratory wheezing and rhonchi and is desaturating into the high 80s at rest. She will be admitted for further evaluation and management of suspected acute bronchitis Hospital Course: Saroj was admitted and treated for the following diagnosis Acute bronchitis Acute hypoxic respiratory failure secondary to above Tolerated and improved with IV Zithromax Tolerated room air Improved with p.o. steroids and as needed nebulizer treatments Diabetes mellitus type 2diet controlled Hyperglycemic secondary to steroid use Carb consistent diet Hypertension Hyperlipidemia Continued home medications when verified On 07/28/24, Saroj was seen on morning rounds and deemed hemodynamically stable for discharge. Atrovent, albuterol, Robitussin with codeine, prednisone, Robaxin, Ultram, nebulizer and nebulizer accessories prescribed. Physical Exam General: AAO x3, NAD HEENT: Atraumatic, PERRLA, EOMI Neck: Supple, 2+ carotid pulse no bruit, No LAD Respiratory: Inspiratory wheezes, on room air Cardiovascular: Regular rate and rhythm normal S1 S2 Capillary refill: <2 Seconds Gastrointestinal: Normal bowel sounds, normal active bowel sounds Musculoskeletal: No tenderness, 2+ peripheral pulses Integumentary: No rashes Neurological: Normal gait, Normal speech, Normal strength at 5/5 x4 extr Vital Signs/Physical Exam: Temp Pulse Resp BP Pulse Ox 98.2 F 83 14 142/68 H 96 07/28/24 08:00 07/28/24 08:00 07/28/24 08:00 07/28/24 08:00 07/28/24 08:00 Laboratory Data at Discharge: WBC 10.30 thou/uL (4.3-10.9) 07/28/24 05:20 Hgb 13.0 g/dL (12.0-15.0) 07/28/24 05:20 Hct 38.6 % (36.0-45.0) 07/28/24 05:20 Plt Count 273 thou/uL (152-406) 07/28/24 05:20 PT 14.1 SECONDS (10-13.0) H 07/26/24 12:53 INR 1.25 07/26/24 12:53 Sodium 140 mEq/L (136-145) 07/28/24 05:20 Potassium 4.0 mEq/L (3.5-5.1) 07/28/24 05:20 BUN 22 mg/dL (7-18) H 07/28/24 05:20 Creatinine 0.94 mg/dL (0.55-1.02) 07/28/24 05:20 Glucose 188 mg/dL (74-106) H 07/28/24 05:20 Magnesium 2.2 mg/dL (1.6-2.4) 07/26/24 12:53 Total Bilirubin 0.6 mg/dL (0.2-1.0) 07/26/24 12:53 AST 36 U/L (15-37) 07/26/24 12:53 ALT 68 U/L (13-56) H 07/26/24 12:53 Alkaline Phosphatase 90 U/L (45-117) 07/26/24 12:53 Home Medications: Losartan Potassium 100 mg PO BEDTIME 06/19/22 Amlodipine [Norvasc*] 5 mg PO BEDTIME 07/27/24 Cholecalciferol (Vitamin D3) [Vitamin D3] 1 cap PO SEECOM 07/27/24 Ergocalciferol (Vitamin D2) [Vitamin D2] 1 cap PO SEECOM 07/27/24 Pantoprazole [Protonix Tab*] 40 mg PO BID 07/27/24 Albuterol Neb [Proventil 0.083% Neb Soln] 2.5 mg NEB [id number] PRN #60 amp 07/28/24 Guaifen W/Codeine Syrup [ROBITUSSIN A-C Syrup*] 10 ml PO Q12HP PRN #100 ml 07/28/24 Ipratropium Neb [Atrovent*] 0.5 mg NEB [id number] #60 amp 07/28/24 Nebulizer 1 each MC DAILY #1 ea 07/28/24 Nebulizer Accessories [Aeroneb Go] 1 each MC DAILY #1 ea 07/28/24 methocarbamoL [Robaxin] 500 mg PO BID #20 tab 07/28/24 predniSONE [Deltasone*] 10 mg PO BID #20 tab 07/28/24 traMADol HCL [Ultram*] 50 mg PO Q6H PRN #20 tab 07/28/24 New Medications: Ipratropium Neb [Atrovent*] 0.5 mg NEB [id number] #60 amp Albuterol Neb [Proventil 0.083% Neb Soln] 2.5 mg NEB [id number] PRN #60 amp PRN Reason: Wheezing Guaifen W/Codeine Syrup [ROBITUSSIN A-C Syrup*] 10 ml PO Q12HP PRN #100 ml PRN Reason: Cough Nebulizer Accessories [Aeroneb Go] 1 each MC DAILY #1 ea predniSONE [Deltasone*] 10 mg PO BID #20 tab Nebulizer 1 each MC DAILY #1 ea methocarbamoL [Robaxin] 500 mg PO BID #20 tab traMADol HCL [Ultram*] 50 mg PO Q6H PRN #20 tab PRN Reason: Pain Physician Discharge Instructions: -DC IV and DC home -Follow-up with PCP in 1 to 2 weeks -Follow-up with Pulmonary in 1 to 2 weeks -Please call Dr. Carlin at [phone] if any questions regarding hospital stay -Please call nursing station at [phone] if any nursing or medication questions -Return to the emergency room if symptoms worsen Diet: AHA Activity: Fall precautions Followup: Alon Pathak MD [ACTIVE - CAN ADMIT] - 1-2 Weeks Du Grissom FNP [Primary Care Provider] - 1-2 Weeks
[2024-07-30] MEDS ORDERED: DRISDOL (VITAMIN D=ERGOCALCIFEROL) 50000 UNIT CAP PO SCH (09:00)
== END 2024-07-28 10:45 | disposition home or self-care (01) | DRG 189 ==
LOC: ER 11:20 → ERHOLD 14:14 → 2ND 19:03 → OBSVTOIN 07-27 12:08
PROVIDERS: ADMIT Hospitalist; ATTEND Hospitalist
DX: J96.01 Acute respiratory failure with hypoxia (principal); J20.9 Acute bronchitis, unspecified; J04.0 Acute laryngitis; E11.9 Type 2 diabetes mellitus without complications; I10 Essential (primary) hypertension; E78.5 Hyperlipidemia, unspecified; M54.9 Dorsalgia, unspecified; Z90.49 Acquired absence of other specified parts of digestive tract; Z90.710 Acquired absence of both cervix and uterus
CPT/HCPCS: 36415; 71045; 80048; 80076; 82947; 83735; 83880; 84484; 85025; 85610; 87428; 90656; 93005; 94640; 96374; 99285; G0378; J1650; J2919; J7030; J7050; J7512; J7613; J7644